=== PATIENT | female | born 1960 | race Caucasian/White ===

== ENCOUNTER → 2017-11-28 07:47 | Outpatient (CLI) | payer OTHER, SELFPAY ==
[2017-11-28 09:08] LABS: Add Manual Diff / Slide Review NO; Eosinophils Percent Auto 5.2 % (2-4); Hematocrit 41.8 % (36-46); Lymphocytes Percent Auto 26.8 % (25-40); Mean Corpuscular HGB Conc 33.4 % (30-36); Mean Corpuscular Hemoglobin 29.5 PG (26-34); Mean Corpuscular Volume 88.3 fL (80-100); Monocytes Percent Auto 8.4 % (3-14); Neutrophils Absolute Auto 3200 /uL (3000-5900); Neutrophils Percent Auto 57.6 % (50-75); Platelet Count 287 X10^3/uL (150-400); Red Blood Cell Count 4.74 X10^6/uL (4.0-5.2); White Blood Cell Count 5.5 X10^3/uL (4.5-11.0)
[2017-11-28 09:37] LABS: Alanine Aminotransferase 22 IU/L (9-52); Albumin 4.3 g/dL (3.5-5.0); Albumin Globulin Ratio 1.5 (1.0-2.8); Alkaline Phosphatase 48 U/L (38-126); Aspartate Aminotransferase 28 IU/L (14-36); BUN Creatinine Ratio 21.3 (6-22); Bilirubin Total 0.9 mg/dL (0.2-1.3); Blood Urea Nitrogen 17 mg/dL (7-17); Calcium 9.2 mg/dL (8.4-10.2); Carbon Dioxide 31 mmol/L (22-32); Chloride 101 mmol/L (98-107); Cholesterol 275 mg/dL (140-199); Estimated Glomerular Filt Rate > 60.0 mL/min (>60); Globulin 2.9 g/dL (1.7-4.1); Glucose 84 mg/dL (70-100); HDL Cholesterol 72 mg/dL (40-60); HEMOLYSIS < 15 (0-50); LDL Cholesterol Calculated 189 mg/dL (<100); Sodium 140 mmol/L (137-145); Total Protein 7.2 g/dL (6.3-8.2); Triglycerides 72 mg/dL (35-150)
== END ==
PROVIDERS: Family Provider Family Medicine; PCP Family Medicine; Visit Provider Family Medicine
DX: E78.5 Hyperlipidemia, unspecified (principal); Z00.00 Encounter for general adult medical examination without abnormal findings
CPT/HCPCS: 36415; 80053; 80061; 85025

== ENCOUNTER → 2017-12-26 13:48 | Outpatient (CLI) | payer OTHER, SELFPAY ==
--- NOTE | 2017-12-26 13:49 | DI.MG.S_ITS ---
BILATERAL DIGITAL SCREENING MAMMOGRAM 3D/2D WITH CAD: 12/26/2017 CLINICAL: Routine screening. Comparison is made to exams dated: 12/18/2015 mammogram, 06/22/2012 mammogram, and 10/24/2007 mammogram - [facility]. The tissue of both breasts is heterogeneously dense. This may lower the sensitivity of mammography. Current study was also evaluated with a Computer Aided Detection (CAD) system. No significant masses, calcifications, or other findings are seen in either breast. There has been no significant interval change. IMPRESSION: NEGATIVE There is no mammographic evidence of malignancy. A 1 year screening mammogram is recommended. This exam was interpreted at Station ID: [id number]. NOTE: For mammograms, a report in lay terms will be sent to the patient. Approximately 15% of breast malignancies will not be visualized mammographically. In the management of a palpable breast mass, a negative mammogram must not discourage biopsy of a clinically suspicious lesion. Electronically Signed By: Ray steward/estephanie:12/26/2017 15:11:35 letter sent: Normal Exam ACR BI-RADS Category 1: Negative 3341F
== END ==
PROVIDERS: Family Provider Family Medicine; PCP Family Medicine; Visit Provider Family Medicine
DX: Z12.31 Encounter for screening mammogram for malignant neoplasm of breast (principal)
CPT/HCPCS: 77063; 77067

== ENCOUNTER → 2018-02-03 09:44 | Outpatient (CLI) | payer OTHER, SELFPAY ==
--- NOTE | 2018-02-03 09:47 | DI.RAD.S_ITS ---
This blank DEXA report has been sent in error by the PACS system. The correct and complete report will be forthcoming in 1-2 days. Thank you for your patience and understanding. Dictated by: Saroj Kelly M.D. on 02/03/2018 at 11:03 Approved by: Saroj Kelly M.D. on 02/03/2018 at 11:10
== END ==
PROVIDERS: Family Provider Family Medicine; PCP Family Medicine; Visit Provider Family Medicine
DX: M81.0 Age-related osteoporosis without current pathological fracture (principal); Z78.0 Asymptomatic menopausal state; Z82.62 Family history of osteoporosis
CPT/HCPCS: 77080

== ENCOUNTER 2018-09-16 03:11 | Emergency (ER) | payer OTHER, SELFPAY ==
[2018-09-16 03:17] VITALS: BP 160/81; PULSE 91; RESP 18; TEMP 37; O2SAT 98; BMI 24.4
--- NOTE | 2018-09-16 03:31 | ED_ITS ---
HPI - Skin/Abscess/Foreign Bdy General Chief complaint: Skin/Abscess/Foreign Body Stated complaint: RASH ALL OVER BODY Time Seen by Provider: 09/16/18 03:30 Source: patient Mode of arrival: ambulatory Limitations: no limitations History of Present Illness HPI narrative: Patient is a 57-year-old female here for evaluation of a rash throughout her body. It has been there for at least the past 24 hours. No new exposures except that she did eat some oysters the other evening. She has had which is in the past and has never had an issue with them. She denies any shortness of breath. Has not taken anything for the symptoms prior to arrival. She states that last evening she went to take a bath and noticed that the rash was now on her lower extremities. It is not itching. She states she could not sleep so that is why she decided to come to the emergency department at this time a day. Related Data Previous Rx's Medication Instructions Recorded temazepam 15 mg capsule 15 mg PO HS PRN #30 tab 05/29/18 prednisone 40 mg PO DAILY 6 Days #12 tab 09/16/18 Allergies Allergy/AdvReac Type Severity Reaction Status Date / Time From VICODIN Allergy Mild ITCH Uncoded 08/10/17 11:52 From Percocet Allergy Unknown itching Uncoded 08/10/17 11:52 Penicillin Allergy Unknown Uncoded 08/10/17 11:52 Trazodone Allergy Unknown Uncoded 08/10/17 11:52 Review of Systems Constitutional Denies fever(s) and Denies headache(s) Eyes Denies itchy eyes ENT Ears, Nose, Mouth, and Throat: Denies headache(s) and Denies lip swelling Cardiovascular Denies chest pain and Denies dyspnea Respiratory Denies dyspnea Integumentary/Breasts Reports rash, Denies skin pain, Denies skin swelling and Denies skin ulcer Neurologic Denies headache(s) Hematologic/Lymphatic Denies easy bleeding and Denies easy bruising Allergic/Immunologic Denies urticaria, Denies itchy eyes and Denies lip swelling [facility] Medical History Dust allergy (Chronic) Osteoporosis (Chronic) Insomnia Hyperlipidemia (Chronic 08/22/12) Hyperlipidemia (Chronic) 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 Brother No problems noted. Father Small intestine cancer Grandfather Stroke Grandmother No problems noted. Grandmother Ovarian cancer Sister Brain tumor Social History Smoking Status: Never smoker Family History (Updated 01/04/18 @ 16:47 by Ludy Garcia) Mother Fibromyalgia Smoker PAD (peripheral artery disease) Stroke Parkinson's disease Brother No problems noted. Brother No problems noted. Father Small intestine cancer Grandfather Stroke Grandmother No problems noted. Grandmother Ovarian cancer Sister Brain tumor Social History Smoking Status: Never smoker Exam Initial Vital Signs Initial Vital Signs: Vital Signs Temperature 98.6 F 09/16/18 03:17 Pulse Rate 91 H 09/16/18 03:17 Respiratory Rate 18 09/16/18 03:17 Blood Pressure 160/81 H 09/16/18 03:17 Pulse Oximetry 98 09/16/18 03:17 Const General: cooperative, healthy appearing, comfortable, well developed, well groomed and No acute distress Orientation: alert and awake HENMT Throat: posterior oropharynx normal Resp Effort & Inspection: normal respiratory effort Auscultation: clear to auscultation bilaterally Skin Other: Patient with a systemic macular papular rash without vesicles. Neuro General: alert and awake Extrem General: normal to inspection Course Orders Ordered: Discontinued Medications Prednisone (Deltasone) 40 mg PO NOW ONE Stop: 09/16/18 03:32 Last Admin: 09/16/18 03:38 Dose: 40 mg Vital Signs - 8 hr 09/16/18 03:17 Temperature 98.6 F Pulse Rate 91 H Respiratory Rate 18 Blood Pressure 160/81 H Pulse Oximetry 98 MDM - Skin/Abscess/Foreign Bdy MDM Narrative Medical decision making narrative: Patient with no new exposures. Exam is not consistent with anaphylaxis. Not consistent with TEN or SJS or EM. Lungs are clear. Unknown exact etiology however will placed on steroids for the next couple days. Patient was given return precautions and follow-up instructions. She expressed understanding and agreement with plan. Discharge Plan Departure Patient Disposition: Home Clinical Impression: Rash Instructions: DI for Rash Activity Restrictions/Additional Instructions: Your 1st dose of steroids was given here in the emergency department. Urine next dose will be on Tuesday morning. On Tuesday contact your primary care doctor for a follow-up. Return to the emergency department for any new or worsening symptoms Prescriptions: New prednisone 20 mg tablet 40 mg PO DAILY 6 Days Qty: 12 RF: 0 No Action temazepam 15 mg capsule 15 mg PO HS PRN (Reason: insomnia) Qty: 30 RF: 0 Referrals: Jacqui Schmidt DO [Primary Care Provider] -
[2018-09-16] MEDS: predniSONE 20 MG TABLET 40 MG PO (03:38)
== END 2018-09-16 04:00 | disposition home or self-care (01) ==
PROVIDERS: Emergency Provider Emergency Medicine; PCP Family Medicine
DX: R21 Rash and other nonspecific skin eruption (principal)
CPT/HCPCS: 99282; 99283

== ENCOUNTER 2018-09-20 15:20 | Emergency (ER) | payer OTHER, SELFPAY ==
[2018-09-20 15:25] VITALS: BP 152/94; PULSE 104; RESP 15; TEMP 36.3; O2SAT 100; BMI 24.4
--- NOTE | 2018-09-20 15:57 | PC.NURSE ---
pt accidentally spilled boiling water on her left anterior thigh 1% first degree burn, occured 1420 denies other injuries.
[2018-09-20 16:02] VITALS: BP 158/86; PULSE 94; RESP 18; O2SAT 98
[2018-09-20] MEDS: KETOROLAC 60 MG/2 ML VIAL IM (16:05)
[2018-09-20] MEDS: BACITRACIN 28 GM OINT 1 APPLIC TOP (16:06)
[2018-09-20 16:30] VITALS: BP 142/78; PULSE 87; RESP 16; O2SAT 98
--- NOTE | 2018-09-20 16:40 | ED.SKABFB ---
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 She states she was boiling eggs. She accidentally poured boiling water on her Left thigh. She states her tetanus is current within the past 5 years. She is not cleansed her wound. She has not taken any ibuprofen or Tylenol. She states she was here recently for rash. she states she has spots on her stomach but they are not affiliated with this incident. Of note she was seen at this facility on the for a rash. She states she has not had any blistering on her burn Related Data Previous Rx's Medication Instructions Recorded temazepam 15 mg capsule 15 mg PO HS PRN #30 tab 09/18/18 Allergies Allergy/AdvReac Type Severity Reaction Status Date / Time Penicillins Allergy Verified 09/20/18 15:25 Review of Systems <LACIE Linares - Last Filed: 09/20/18 16:48> Review of Systems GENERAL: Denies chills, fatigue, malaise, fever, sweats. HEENT: Denies sinus pain, ear pain, sore throat, difficulty swallowing, dizziness. RESPIRATORY: Denies dyspnea, cough, wheezing, hemoptysis, sputum. CARDIOVASCULAR: Denies chest pain, palpitations, orthopnea, edema, GASTROINTESTINAL: Denies nausea, vomiting, abdominal pain, diarrhea, constipation, melena. : Denies dysuria, frequency, incontinence, hematuria, urinary retention. MUSCULOSKELETAL: denies weakness, joint pain, or bony pain SKIN: See HPI NEUROLOGIC: Denies weakness, headache, numbness, change in speech, confusion, seizures, incoordination. PSYCHIATRIC: No concerning psychosocial issues. 12 point review of systems is negative except for those stated above PFSH <LACIE Linares - Last Filed: 09/20/18 16:48> Medical History Dust allergy (Chronic) Osteoporosis (Chronic) Insomnia Hyperlipidemia (Chronic 08/22/12) Hyperlipidemia (Chronic) Insomnia secondary to anxiety (Chronic) Ovarian cyst (Chronic) Normal Papanicolaou smear (Resolved) Surgical History Anesthesia (Resolved) Status post delivery (Resolved 03/21/76) Status post tubal ligation (Resolved 04/1986) Family History (Updated 01/04/18 @ 16:47 by Ludy Garcia) Mother Fibromyalgia Smoker PAD (peripheral artery disease) Stroke Parkinson's disease Brother No problems noted. Brother No problems noted. Father Small intestine cancer Grandfather Stroke Grandmother No problems noted. Grandmother Ovarian cancer Sister Brain tumor Social History Smoking Status: Never smoker Family History Mother Fibromyalgia Smoker PAD (peripheral artery disease) Stroke Parkinson's disease Brother No problems noted. Brother No problems noted. Father Small intestine cancer Grandfather Stroke Grandmother No problems noted. Grandmother Ovarian cancer Sister Brain tumor Social History Smoking Status: Never smoker Exam <LACIE Linares - Last Filed: 09/20/18 16:48> Narrative Exam Narrative: GENERAL: This is a well-nourished, well-developed patient, appears anxious HEAD: Atraumatic. Normocephalic. No temporal or scalp tenderness. EYES: Pupils equal round and reactive. Extraocular motions intact. No scleral icterus. No injection or drainage. ENT: Nose without bleeding, purulent drainage or septal hematoma. Throat without erythema, tonsillar hypertrophy or exudate. Uvula midline. Airway patent. NECK: Trachea midline. No JVD or lymphadenopathy. Supple, nontender, no meningeal signs. CARDIOVASCULAR: Regular rate and rhythm RESPIRATORY: No cough. No increased respiratory effort. No accessory muscle use. EXTREMITIES: Superficial burn as noted in skin exam BACK: Nontender without deformity or crepitance. No flank tenderness. NEURO: AOx3. SKIN: Left thigh has approx 10 in by 4 in area of blanchable erythema Initial Vital Signs Initial Vital Signs: Vital Signs Temperature 97.3 F L 09/20/18 15:25 Pulse Rate 104 H 09/20/18 15:25 Respiratory Rate 15 09/20/18 15:25 Blood Pressure 152/94 H 09/20/18 15:25 Pulse Oximetry 100 09/20/18 15:25 <Nadya Conway DO - Last Filed: 09/22/18 07:28> Initial Vital Signs Initial Vital Signs: Vital Signs Temperature 97.3 F L 09/20/18 15:25 Pulse Rate 104 H 09/20/18 15:25 Respiratory Rate 15 09/20/18 15:25 Blood Pressure 152/94 H 09/20/18 15:25 Pulse Oximetry 100 09/20/18 15:25 Course <SARAH LinaresBC - Last Filed: 09/20/18 16:48> Orders Ordered: Discontinued Medications Bacitracin (Bacitracin) 1 applic TOP NOW ONE Stop: 09/20/18 15:50 Last Admin: 09/20/18 16:06 Dose: 1 applic Ketorolac Tromethamine (Toradol) 60 mg IM NOW ONE Stop: 09/20/18 15:50 Last Admin: 09/20/18 16:05 Dose: 60 mg Vital Signs - 8 hr 09/20/18 15:25 09/20/18 16:02 09/20/18 16:30 Temperature 97.3 F L Pulse Rate 104 H 94 H 87 Respiratory Rate 15 18 16 Blood Pressure 152/94 H Blood Pressure [Left Arm] 158/86 H 142/78 H Pulse Oximetry 100 98 98 <Nadya Conway DO - Last Filed: 09/22/18 07:28> Orders Ordered: Discontinued Medications Bacitracin (Bacitracin) 1 applic TOP NOW ONE Stop: 09/20/18 15:50 Last Admin: 09/20/18 16:06 Dose: 1 applic Ketorolac Tromethamine (Toradol) 60 mg IM NOW ONE Stop: 09/20/18 15:50 Last Admin: 09/20/18 16:05 Dose: 60 mg Vital Signs - 8 hr 09/20/18 15:25 09/20/18 16:02 09/20/18 16:30 Temperature 97.3 F L Pulse Rate 104 H 94 H 87 Respiratory Rate 15 18 16 Blood Pressure 152/94 H Blood Pressure [Left Arm] 158/86 H 142/78 H Pulse Oximetry 100 98 98 MDM - Skin/Abscess/Foreign Bdy <Nadya KjNYDIA foster-BC - Last Filed: 09/20/18 16:48> MDM Narrative Medical decision making narrative: The patient presents with a superficial burn. Does cleansed by myself with water and Hibiclens. The patient states her tetanus is up-to-date. Bacitracin was applied. Discussed at length monitoring for signs and symptoms of infection. Discussed keeping burn clean using bacitracin. Discussed using ibuprofen for pain. Patient was given Toradol in the emergency department. Encouraged patient to follow up with primary care provider. Discussed return precautions to the emergency department of chest pain shortness of breath or any acute concerns. No questions or concerns upon discharge. Discharge Plan Departure Patient Disposition: Home Clinical Impression: Burn Discharge Date/Time: 09/20/18 17:34 Interventions: ED Discharge Assessment Last Done: 09/20/18 17:20 Instructions: DI for [place] Activity Restrictions/Additional Instructions: Please keep your burn clean. Wash it with soap and water twice a day. Please apply bacitracin twice a day. Continue to use ibuprofen or anti-inflammatories. Please wait to take anti-inflammatories for 8 hours after that injection in the emergency department Please follow up with primary care provider. Please come back to the emergency department for any acute concerns such as chest pain or shortness of breath. Prescriptions: No Action temazepam 15 mg capsule 15 mg PO HS PRN (Reason: insomnia) Qty: 30 RF: 0 Referrals: Jacqui Schmidt DO [Primary Care Provider] - <Nadya Conway DO - Last Filed: 09/22/18 07:28> Cosign ED Attending Cosignature Attestation: I was immediately available in the department for consultation. This documentation has been reviewed and I agree with assessment and plan. Supervised by Nadya Conway DO
== END 2018-09-20 17:34 | disposition home or self-care (01) ==
PROVIDERS: Emergency Provider Nurse Practitioner Family; PCP Family Medicine
DX: T24.012A Burn of unspecified degree of left thigh, initial encounter (principal); X12.XXXA Contact with other hot fluids, initial encounter
CPT/HCPCS: 96372; 99282; 99283; J1885

== ENCOUNTER → 2019-02-09 08:07 | Outpatient (CLI) | payer OTHER, SELFPAY ==
[2019-02-09 09:26] LABS: Alanine Aminotransferase 23 IU/L (9-52); Albumin 4.2 g/dL (3.5-5.0); Albumin Globulin Ratio 1.6 (1.0-2.8); Alkaline Phosphatase 45 U/L (38-126); Aspartate Aminotransferase 32 IU/L (14-36); Bilirubin Total 0.9 mg/dL (0.2-1.3); Blood Urea Nitrogen 18 mg/dL (7-17); Calcium 9.3 mg/dL (8.4-10.2); Carbon Dioxide 29 mmol/L (22-32); Chloride 103 mmol/L (98-107); Cholesterol 245 mg/dL (140-199); Estimated Glomerular Filt Rate > 60.0 mL/min (>60); Globulin 2.7 g/dL (1.7-4.1); Glucose 70 mg/dL (80-110); HDL Cholesterol 73 mg/dL (40-60); HEMOLYSIS < 15 (0-50); LDL Cholesterol Calculated 153 mg/dL (<100); Potassium 4.3 mmol/L (3.4-5.1); Sodium 140 mmol/L (137-145); Total Protein 6.9 g/dL (6.3-8.2); Triglycerides 93 mg/dL (35-150)
[2019-02-09 10:42] LABS: Vitamin D 25 Hydroxy (D3) 19.4 ng/mL (30.0-100.0)
== END ==
PROVIDERS: PCP Family Medicine; Visit Provider Family Medicine
DX: E78.5 Hyperlipidemia, unspecified (principal); M81.0 Age-related osteoporosis without current pathological fracture
CPT/HCPCS: 36415; 80053; 80061; 82306

== ENCOUNTER → 2020-06-27 11:17 | Outpatient (CLI) | payer OTHER, SELFPAY ==
--- NOTE | 2020-06-27 | DI.MG.S_ITS ---
BILATERAL DIGITAL SCREENING MAMMOGRAM 3D/2D WITH CAD: 06/27/2020 CLINICAL: Routine screening. Comparison is made to exams dated: 12/26/2017 mammogram, 12/18/2015 mammogram, 06/22/2012 mammogram, and 08/04/2006 mammogram - [facility]. The tissue of both breasts is heterogeneously dense. This may lower the sensitivity of mammography. Current study was also evaluated with a Computer Aided Detection (CAD) system. No significant masses, calcifications, or other findings are seen in either breast. There has been no significant interval change. IMPRESSION: NEGATIVE There is no mammographic evidence of malignancy. A 1 year screening mammogram is recommended. This exam was interpreted at Station ID: [id number]. NOTE: For mammograms, a report in lay terms will be sent to the patient. Approximately 15% of breast malignancies will not be visualized mammographically. In the management of a palpable breast mass, a negative mammogram must not discourage biopsy of a clinically suspicious lesion. Electronically Signed By: Power bryan/estephanie:06/27/2020 12:42:34 letter sent: Normal Exam ACR BI-RADS Category 1: Negative 3341F
== END ==
PROVIDERS: PCP Family Medicine; Referring Provider Family Medicine; Visit Provider Family Medicine
DX: Z12.31 Encounter for screening mammogram for malignant neoplasm of breast (principal)
CPT/HCPCS: 77063; 77067

== ENCOUNTER → 2020-06-30 07:07 | Outpatient (CLI) | payer OTHER, SELFPAY ==
[2020-06-30 08:50] LABS: Alanine Aminotransferase 17 IU/L (<35); Albumin 4.1 g/dL (3.5-5.0); Albumin Globulin Ratio 1.4 (1.0-2.8); Alkaline Phosphatase 52 U/L (38-126); Aspartate Aminotransferase 29 IU/L (14-36); BUN Creatinine Ratio 22.1 (6-22); Bilirubin Total 0.7 mg/dL (0.2-1.3); Blood Urea Nitrogen 17 mg/dL (7-17); Calcium 9.1 mg/dL (8.4-10.2); Carbon Dioxide 30 mmol/L (22-32); Chloride 104 mmol/L (98-107); Cholesterol 285 mg/dL (140-199); Estimated Glomerular Filt Rate > 60.0 mL/min (>60); Globulin 2.9 g/dL (1.7-4.1); Glucose 87 mg/dL (80-110); HDL Cholesterol 71 mg/dL (40-60); HEMOLYSIS < 15 (0-50); LDL Cholesterol Calculated 198 mg/dL (<100); Potassium 3.9 mmol/L (3.4-5.1); Sodium 136 mmol/L (137-145); Triglycerides 78 mg/dL (35-150)
[2020-06-30 09:16] LABS: Vitamin D 25 Hydroxy (D3) 22.8 ng/mL (30.0-100.0)
== END ==
PROVIDERS: PCP Family Medicine; Referring Provider Family Medicine; Visit Provider Family Medicine
DX: E78.5 Hyperlipidemia, unspecified (principal); M81.0 Age-related osteoporosis without current pathological fracture
CPT/HCPCS: 36415; 80053; 80061; 82306

== ENCOUNTER → 2020-07-01 17:38 | Outpatient (CLI) | payer OTHER, SELFPAY | PROVIDERS: PCP Family Medicine; Visit Provider Registered Nurse Diabetes Educator | DX: A60.9 Anogenital herpesviral infection, unspecified (principal) | CPT/HCPCS: 87255 ==

== ENCOUNTER → 2020-07-07 07:03 | Outpatient (CLI) | payer OTHER, SELFPAY | PROVIDERS: PCP Family Medicine; Referring Provider Registered Nurse Diabetes Educator; Visit Provider Registered Nurse Diabetes Educator | DX: A60.9 Anogenital herpesviral infection, unspecified (principal) | CPT/HCPCS: 36415; 86695; 86696 ==

== ENCOUNTER → 2020-07-30 14:19 | Outpatient (CLI) | payer OTHER, SELFPAY ==
[2020-07-30] MEDS: COVID-19 VACC #1, MRNA(MOD) 100 MCG/0.5 ML VIAL IM (14:29)
== END ==
PROVIDERS: PCP Family Medicine; Visit Provider Internal Medicine
DX: Z23 Encounter for immunization (principal)
CPT/HCPCS: 0011A; 91301

== ENCOUNTER → 2020-08-27 15:45 | Outpatient (CLI) | payer OTHER, SELFPAY ==
[2020-08-27] MEDS: COVID-19 VACC #2, MRNA(MOD) 100 MCG/0.5 ML VIAL IM (15:59)
== END ==
PROVIDERS: PCP Family Medicine; Visit Provider Internal Medicine
DX: Z23 Encounter for immunization (principal)
CPT/HCPCS: 0012A; 91301

== ENCOUNTER 2020-09-26 11:19 | Emergency (ER) | payer OTHER, SELFPAY ==
[2020-09-26 11:20] VITALS: BP 191/82; PULSE 103; RESP 20; TEMP 36.7; O2SAT 14
--- NOTE | 2020-09-26 11:28 | ED.ALLEREA ---
HPI - Allergic Reaction General Chief complaint: Allergic Reaction Stated complaint: allegic reactiont to tetanus shot Time Seen by Provider: 09/26/20 11:27 Source: patient Mode of arrival: Ambulatory Limitations: no limitations History of Present Illness HPI narrative: This is a pleasant 60-year-old female comes with concern for allergic reaction to tetanus immunization. Patient had her tetanus updated about 10:00 a.m. today. She noticed some irritation to her eyes immediately afterwards, return home and then noted that she developed a rash with hives and itching on her extremities and torso. Patient denies any swelling of the lips, mouth, tongue her airway. She denies any sensation of closing of her throat. She denies any chest pain or wheezing. She denies any nausea or vomiting. She denies any diarrhea. She states that she has allergy to penicillin she has had 1 prior allergic reaction which she does not recall the medication. She does have some known environmental allergies. She has not any prior immunization reactions. Patient denies any daily chronic medications. Related Data Previous Rx's Medication Instructions Recorded cholecalciferol (vitamin D3) 1,250 50,000 unit PO QWEEK #8 cap 02/11/19 mcg (50,000 unit) capsule temazepam 15 mg capsule 15 mg PO HS PRN #30 tab 06/07/20 valacyclovir 1 gram tablet 1,000 mg PO BID #20 tab 07/01/20 desonide 0.05 % topical ointment 1 applic TOPICAL BID #15 g 07/18/20 epinephrine [EpiPen 2-Stevan] 0.3 mg IM Q5-15M PRN #2 ea 09/26/20 prednisone 50 mg PO DAILY #4 tab 09/26/20 Allergies Allergy/AdvReac Type Severity Reaction Status Date / Time Tetanus Vaccines and Toxoid Allergy Intermediate Hives Verified 09/26/20 13:02 Penicillins Allergy Verified 09/26/20 11:31 Review of Systems Review of Systems ROS Unobtainable: All systems reviewed & are unremarkable except as noted in HPI and below Patient History Medical History (Updated 09/26/20 @ 11:36 by Nadya Conway DO) Dust allergy Hyperlipidemia (08/22/12) Hyperlipidemia Insomnia Insomnia secondary to anxiety Normal Papanicolaou smear Osteoporosis Ovarian cyst Surgical History Anesthesia Status post delivery (03/21/76) Status post tubal ligation (04/1986) Family History Mother Fibromyalgia Smoker PAD (peripheral artery disease) Stroke Parkinson's disease Brother Age: 57 Alcoholism Brother Age: 60 Hyperlipidemia Hypertension Smoker CAD (coronary artery disease) Father Small intestine cancer Grandfather Stroke Grandmother No problems noted. Grandmother Ovarian cancer Sister Brain tumor Social History Smoking Status: Never smoker Smoking Status: Never smoker alcohol intake frequency: holidays/special occasions only Substance Use Type: does not use Exam Narrative Exam Narrative: GEN: well nourished, well appearing female, alert and oriented x 3, patient appears to be in mild distress. Patient is sitting on edge of bed appears comfortable. HEENT: Atraumatic, pupils are equal round reactive to light, extraocular movements are intact, nares are clear, TMs are clear with no fluid, there is no conjunctival pallor. Throat is clear without any exudates, erythema, tonsillar enlargement or uvular deviation, no swelling of lips, tongue or oropharynx. No stridor. HEART: Regular rate and rhythm without murmur, clicks, rubs. LUNGS:Lungs clear to auscultation, no wheezes, rales, crackles, chest moves symmetrically ABD:bowel sounds normal, soft, non-tender, no guarding, rebound, rigidity, no masses noted, no hepatosplenomegaly MSCL: full range of motion, normal gait NEURO:CN 2-12 intact, sensation normal SKIN: Patient has erythematous slightly raised rash on her extremities and torso that appears consistent with hives. Patient has some pruritus and scratching at the areas. There is no blistering. There is no rash or skin changes noted to the face or mucous membranes. Initial Vital Signs Initial Vital Signs: Vital Signs Temperature 98.1 F 09/26/20 11:20 Pulse Rate 103 H 09/26/20 11:20 Respiratory Rate 20 09/26/20 11:20 Blood Pressure 191/82 H 09/26/20 11:20 Pulse Oximetry 14 L 09/26/20 11:20 Course Orders Ordered: Discontinued Medications Diphenhydramine HCl (Diphenhydramine 12.5 Mg/5 Ml Udc) 50 mg PO NOW ONE Stop: 09/26/20 11:32 Last Admin: 09/26/20 11:48 Dose: 50 mg Documented by: JESSICA Prednisone (Prednisone 20 Mg Tablet) 60 mg PO NOW ONE Stop: 09/26/20 11:32 Last Admin: 09/26/20 11:48 Dose: 60 mg Documented by: JESSICA Reevaluation(s) Reevaluation #1: No worsening, patient states mild improvement. Return precautions discussed. Time: 13:02 Vital Signs Vital signs: Vital Signs - 8 hr 09/26/20 11:20 09/26/20 13:00 Temperature 98.1 F Pulse Rate 103 H 72 Respiratory Rate 20 16 Blood Pressure 191/82 H 159/71 H Pulse Oximetry 14 L 99 Discharge Plan Departure Patient Disposition: Home Clinical Impression: Allergic reaction Instructions: DI for Adverse Drug Reaction -- Allergic Activity Restrictions/Additional Instructions: It appears today had allergic reaction to your tetanus immunization. Please update your physician that you had a reaction to your immunization. Take steroids once daily until gone. Take Benadryl 1-2 tablets every 6 hours as needed for symptoms. EpiPen was prescribed if you have any symptoms such as swelling of your throat or airway recommend using this in the future. Prescription was sent to [facility] in [place] Please return for new or worsening swelling of your lips, mouth, airway, throat, wheezing or shortness of breath, chest pain, lightheadedness or passing out, persistent vomiting, rapidly worsening rash or new blistering rash other new or concerning symptoms. Prescriptions: New epinephrine [EpiPen 2-Stevan] 0.3 mg/0.3 mL auto-injector 0.3 mg IM Q5-15M PRN (Reason: anaphylaxis) Qty: 2 RF: 0 prednisone 50 mg tablet 50 mg PO DAILY Qty: 4 RF: 0 No Action cholecalciferol (vitamin D3) 50,000 unit capsule 50,000 unit PO QWEEK Qty: 8 RF: 0 temazepam 15 mg capsule 15 mg PO HS PRN (Reason: insomnia) Qty: 30 RF: 1 desonide 0.05 % ointment 1 applic topical BID Qty: 15 RF: 0 valacyclovir [Valtrex] 1 gram tablet 1,000 mg PO BID Qty: 20 RF: 0 Referrals: Jacqui Schmidt DO [Primary Care Provider] -
[2020-09-26] MEDS: diphenhydrAMINE 12.5 MG/5 ML UDC 50 MG PO (11:48)
[2020-09-26] MEDS: predniSONE 20 MG TABLET 60 MG PO (11:48)
[2020-09-26 13:00] VITALS: BP 159/71; PULSE 72; RESP 16; O2SAT 99
== END 2020-09-26 13:18 | disposition home or self-care (01) ==
PROVIDERS: Emergency Provider Emergency Medicine; PCP Family Medicine
DX: L50.9 Urticaria, unspecified (principal); T50.A95A Adverse effect of other bacterial vaccines, initial encounter
CPT/HCPCS: 99283

== ENCOUNTER → 2020-12-01 11:11 | Outpatient (CLI) | payer OTHER, SELFPAY | PROVIDERS: PCP Family Medicine; Referring Provider Family Medicine; Visit Provider Family Medicine | DX: M81.0 Age-related osteoporosis without current pathological fracture (principal); Z78.0 Asymptomatic menopausal state; Z82.62 Family history of osteoporosis | CPT/HCPCS: 77080 ==

== ENCOUNTER → 2021-01-13 06:45 | Outpatient (CLI) | payer OTHER, SELFPAY ==
[2021-01-13 09:19] LABS: Alanine Aminotransferase 16 IU/L (<35); Albumin 4.2 g/dL (3.5-5.0); Albumin Globulin Ratio 1.5 (1.0-2.8); Alkaline Phosphatase 51 U/L (38-126); Aspartate Aminotransferase 26 IU/L (14-36); BUN Creatinine Ratio 27.7 (6-22); Bilirubin Total 0.7 mg/dL (0.2-1.3); Blood Urea Nitrogen 18 mg/dL (7-17); Calcium 9.2 mg/dL (8.4-10.2); Carbon Dioxide 28 mmol/L (22-32); Chloride 105 mmol/L (98-107); Cholesterol 255 mg/dL (140-199); Estimated Glomerular Filt Rate > 60.0 mL/min (>60); Globulin 2.8 g/dL (1.7-4.1); Glucose 109 mg/dL (80-110); HDL Cholesterol 78 mg/dL (40-60); HEMOLYSIS < 15 (0-50); LDL Cholesterol Calculated 164 mg/dL (<100); Sodium 137 mmol/L (137-145); Triglycerides 64 mg/dL (35-150)
[2021-01-13 09:27] LABS: Vitamin D 25 Hydroxy (D3) 24.2 ng/mL (30.0-100.0)
== END ==
PROVIDERS: PCP Family Medicine; Referring Provider Family Medicine; Visit Provider Family Medicine
DX: E78.5 Hyperlipidemia, unspecified (principal); M81.0 Age-related osteoporosis without current pathological fracture
CPT/HCPCS: 36415; 80053; 80061; 82306

== ENCOUNTER → 2021-07-01 14:16 | Outpatient (CLI) | payer OTHER, SELFPAY ==
[2021-07-01 17:09] LABS: COVID19 -Nasal RAPID Negative (Negative)
== END ==
PROVIDERS: Surgery; PCP Family Medicine; Visit Provider Registered Nurse Diabetes Educator
DX: N73.9 Female pelvic inflammatory disease, unspecified (principal); Z01.812 Encounter for preprocedural laboratory examination; Z20.822 Contact with and (suspected) exposure to COVID-19
CPT/HCPCS: 87070; 87075; 87077; 87147; 87186; 87205; 87635

== ENCOUNTER 2021-07-03 08:56 | Day surgery (SDC) | payer OTHER, SELFPAY ==
[2021-07-02 07:46] VITALS: BMI 25.4
[2021-07-03 09:29] VITALS: BP 170/84; PULSE 88; RESP 16; TEMP 37.1; O2SAT 98; BMI 25.4
--- NOTE | 2021-07-03 11:06 | PM.PREOP ---
Pre-operative Note COVID-19 COVID-19 status: Negative Result date/Date tested (Pos, Neg/Pending): 07/02/21 Criteria for continued procedure: Possibility delay results in more complex future surgery or treatment Interval Note History & Physical reviewed/Exam performed by Physician: Yes Changes to H&P: No ASA Class (for procedural sedation): II
--- NOTE | 2021-07-03 11:27 | SUR.OPER ---
Lithotomy on padded OR bed, head on pillow, arms secured on padded arm boards at <90 degrees abduction. Legs secured in padded yellow fins stirrups.
[2021-07-03] MEDS: BUPIVACAINE LIPOSOME 266 MG/20 ML VIAL INJ (11:35)
--- NOTE | 2021-07-03 11:47 | PM.OP.1 ---
Operative Date/Time/Diagnoses Date of procedure: 07/03/21 Time of procedure: 11:47 Pre-op diagnosis: Darleen rectal abscess Post-op diagnosis: same Procedure & Clinicians Procedure: Examination under anesthesia and incision and drainage of darleen rectal abscess Same procedure as scheduled: Yes Surgeon: Bob Robison Click Yes if Unassisted: Yes Anesthesia Type: General Operative Notes Procedure in detail: The patient was brought to the operating room and general anesthesia was induced via LMA. Patient was positioned in high lithotomy position. The perineum was prepped and draped in the usual fashion. A time-out was performed. There were 2 lesions in the right anterior peroneal region at roughly 10 o'clock when viewing the anus in the high lithotomy position both of these skin lesions were about cm in diameter and showed evidence of prior drainage of purulent material. One of these lesions was about cm from the anus and another was about 3 cm from the anus. First, the distal rectum was examined with a Hill-Moreno retractor and no obvious abnormalities were noted. Next, Exparel was injected into the skin and subcutaneous tissue around both lesions and both lesions were incised with a 15 blade scalpel in a cruciate manner with a 1 cm x 1 cm incision. There is minimal drainage of purulent fluid. Finger was inserted into the abscess cavity through both skin incisions to break up any loculations. The abscess cavity did not appear to track significantly in any direction. Finally, additional Exparel was injected into the remainder of the soft tissue around both incisions and the cavities were packed with Kerlix. 4x4s were applied and the patient was awakened and brought to recovery room. EBL: 15 mL Post-operative Condition: stable Disposition: PACU
[2021-07-03 11:52] VITALS: BP 153/76; PULSE 74; RESP 17; TEMP 37.1; O2SAT 97
[2021-07-03 11:56] VITALS: BP 139/66; PULSE 74; RESP 14; O2SAT 98
[2021-07-03 12:01] VITALS: BP 152/68; PULSE 73; RESP 12; TEMP 36.6; O2SAT 97
[2021-07-03 12:08] VITALS: BP 157/71; PULSE 73; RESP 11; TEMP 36.4; O2SAT 96
[2021-07-03 12:15] VITALS: BP 152/70; PULSE 66; RESP 14; TEMP 36.2; O2SAT 97
== END 2021-07-03 12:26 | disposition home or self-care (01) ==
PROVIDERS: PCP Family Medicine; Referring Provider Surgery; Visit Provider Surgery
PROC: (CPT 46040; principal; 2021-07-03 10:45)
DX: K61.1 Rectal abscess (principal)
CPT/HCPCS: 46040; C9290; J1100; J2250; J2405; J2704; J3010

== ENCOUNTER → 2021-07-14 14:41 | Outpatient (CLI) | payer OTHER, SELFPAY | PROVIDERS: PCP Family Medicine; Visit Provider Surgery | DX: K61.1 Rectal abscess (principal) | CPT/HCPCS: 10061; 87070; 87075; 87077; 87147; 87186; 87205 ==

== ENCOUNTER 2021-08-06 09:36 | Emergency (ER) | payer OTHER, SELFPAY ==
[2021-08-06 09:52] VITALS: BP 179/84; PULSE 98; RESP 18; TEMP 37; O2SAT 100; BMI 53.4
--- NOTE | 2021-08-06 10:04 | ED.SKABFB ---
HPI - Skin/Abscess/Foreign Bdy General Chief complaint: Skin/Abscess/Foreign Body Stated complaint: MRSA, Bumps appearing, needs lanced Time Seen by Provider: 08/06/21 09:45 Source: patient Mode of arrival: Ambulatory Limitations: no limitations History of Present Illness HPI narrative: Patient is a 60-year-old female who presents with ongoing abscesses in her left buttock. She has been seen and evaluated by surgery. She was recently started on a higher dose of Bactrim 2 days ago. She says it has gotten bigger and probably needs to be drained again. She denies any fever or chills. She does feel little nauseous of this is been ongoing she thinks might be due to the antibiotic she has not been vomiting. She feels weak but it generally gets better throughout the day. She has nausea medication at home Related Data Previous Rx's Medication Instructions Recorded cholecalciferol (vitamin D3) 1,250 50,000 unit PO QWEEK #8 cap 02/11/19 mcg (50,000 unit) capsule desonide 0.05 % topical ointment 1 applic TOPICAL BID #15 g 07/18/20 epinephrine 0.3 mg/0.3 mL 0.3 mg (0.3 mL) IM Q5-15M PRN #2 ea 09/26/20 injection, auto-injector (EpiPen 2-Stevan) hydrocortisone acetate 30 mg 30 mg IN BEDTIME #12 ea 01/23/21 rectal suppository temazepam 15 mg capsule 15 mg PO HS PRN #30 tab 01/23/21 sulfamethoxazole 400 1 tab PO DAILY #14 tab 07/15/21 mg-trimethoprim 80 mg tablet (Bactrim) hydrocodone 5 mg-acetaminophen 325 1 tab PO Q4-6H PRN #14 tab 07/22/21 mg tablet sulfamethoxazole 800 1 tab PO BID #14 tab 08/03/21 mg-trimethoprim 160 mg tablet (Bactrim DS) metoclopramide HCl 10 mg tablet 10 mg PO Q6H PRN #10 tab 08/05/21 (Reglan) mupirocin 2 % topical ointment 1 applictn TOP BID #15 gram 08/06/21 Allergies Allergy/AdvReac Type Severity Reaction Status Date / Time Tetanus Vaccines and Toxoid Allergy Intermediate Hives Verified 08/03/21 16:09 Penicillins Allergy Verified 08/03/21 16:09 Review of Systems Review of Systems Narrative: GENERAL: Denies chills,fever HEENT: Denies throat pain RESPIRATORY: Denies dyspnea, cough, wheezing CARDIOVASCULAR: Denies chest pain, palpitations GASTROINTESTINAL: Denies nausea, vomiting MUSCULOSKELETAL: Denies extremity pain, injury SKIN: See HPI NEUROLOGIC: Denies weakness, dizziness, headache, numbness 8 point review of systems is negative except for those stated above and HPI Patient History Medical History (Updated 08/06/21 @ 10:44 by Francia Gonzales DO) Dust allergy Hyperlipidemia (08/22/12) Hyperlipidemia Insomnia Insomnia secondary to anxiety Normal Papanicolaou smear Osteoporosis Ovarian cyst Surgical History Anesthesia Status post delivery (03/21/76) Status post tubal ligation (04/1986) Family History Mother Fibromyalgia Smoker PAD (peripheral artery disease) Stroke Parkinson's disease Brother Age: 58 Alcoholism Brother Age: 61 Hyperlipidemia Hypertension Smoker CAD (coronary artery disease) Father Small intestine cancer Grandfather Stroke Grandmother No problems noted. Grandmother Ovarian cancer Sister Brain tumor Social History Smoking Status: Never smoker alcohol intake: current Smoking Status: Never smoker alcohol intake frequency: holidays/special occasions only Substance Use Type: does not use Exam Initial Vital Signs Initial Vital Signs: Vital Signs Temperature 98.6 F 08/06/21 09:52 Pulse Rate 98 H 08/06/21 09:52 Respiratory Rate 18 08/06/21 09:52 Blood Pressure 179/84 H 08/06/21 09:52 Pulse Oximetry 100 08/06/21 09:52 GENERAL: Alert well-appearing 60-year-old female CARDIOVASCULAR: peripheral pulses in tact, cap refill <2 sec RESPIRATORY: No respiratory distress, speaks in full sentences without difficulty EXTREMITIES: Normal range of motion, no clubbing or edema. Neurovascularly intact NEUROLOGICAL: Cranial nerves II through XII grossly intact. Normal gait and speech. SKIN: Left buttock abscess with mild fluctuation 2 cm x 2 cm minimal induration Procedures Abscess I/D I&D #1: Site: darleen-rectal (left buttock) Side (if applicable): left Local Anesthetic: lidocaine 1% Amount of anesthesia used (mL): 4 Technique: incised with #11 blade Amount of fluid expressed (mL): 2 Irrigation: No Packing used?: none Course Orders Ordered: ED Orders 08/06/21 11:49 Wound Culture and Gram Stain Stat Discontinued Medications Lidocaine HCl (Lidocaine 1% (Pf)) 4 ml SUBCUT NOW ONE Stop: 08/06/21 10:09 Last Admin: 08/06/21 10:36 Dose: 4 ml Documented by: JHONY Vital Signs Vital signs: Vital Signs - 8 hr 08/06/21 09:52 08/06/21 11:55 Temperature 98.6 F 98 F Pulse Rate 98 H 85 Respiratory Rate 18 18 Blood Pressure 179/84 H 170/80 H Pulse Oximetry 100 98 MDM - Skin/Abscess/Foreign Bdy MDM Narrative Medical decision making narrative: Patient has recurrent MRSA infections. She is currently on double-strength dose of Bactrim that has only taken 1 or 2 days of it. She has a small drainable abscess. Wound culture is pending. At this time she is afebrile certainly not septic at this time. I see no need for any further workup recommend outpatient Discharge Plan Departure Patient Disposition: Home Clinical Impression: Abscess of skin or subcutaneous tissue Instructions: DI for Skin Abscess Activity Restrictions/Additional Instructions: *You have been diagnosed with skin abscess *What to do: Sorry this keeps happening to you. Keep area clean and dry as best you can. Try heating pad as needed this may help bring more infection to the surface as well. Warm baths may also help. *Continue to take medications as directed Continue and finish antibiotics as previously prescribed Mupirocin ointment twice a day for 1 week--> [facility] *Follow up with your primary care provider in 2-3 days or call [phone] Robison to schedule follow-up appointment *Return to ER if you should have increasing redness, fever, increasing pain or any new, worsening or concerning symptoms Prescriptions: New mupirocin 2 % ointment 1 applictn TOP BID Qty: 15 0RF No Action cholecalciferol (vitamin D3) 50,000 unit capsule 50,000 unit PO QWEEK Qty: 8 0RF metoclopramide HCl [Reglan] 10 mg tablet 10 mg PO Q6H PRN (Reason: nausea and vomiting) Qty: 10 0RF desonide 0.05 % ointment 1 applic topical BID Qty: 15 0RF temazepam 15 mg capsule 15 mg PO HS PRN (Reason: insomnia) Qty: 30 1RF Rx Instructions: Take 1 tablet by mouth at bedtime as needed for insomnia. hydrocortisone acetate 30 mg suppository 30 mg IN BEDTIME Qty: 12 0RF sulfamethoxazole-trimethoprim [Bactrim] 400-80 mg tablet 1 tab PO DAILY Qty: 14 0RF sulfamethoxazole-trimethoprim [Bactrim DS] 800-160 mg tablet 1 tab PO BID Qty: 14 0RF hydrocodone-acetaminophen 5-325 mg tablet 1 tab PO Q4-6H PRN (Reason: pain) Qty: 14 0RF epinephrine [EpiPen 2-Stevan] 0.3 mg/0.3 mL auto-injector 0.3 mg IM Q5-15M PRN (Reason: anaphylaxis) Qty: 2 0RF Rx Instructions: do not exceed 3 doses per episode Referrals: [facility] [Provider Group] Sarah Allison MD [Primary Care Provider] - Bob Robison MD [Physician] -
[2021-08-06] MEDS: LIDOCAINE 1% (PF) 4 ML SUBCUT (10:36)
[2021-08-06 11:55] VITALS: BP 170/80; PULSE 85; RESP 18; TEMP 36.6; O2SAT 98
== END 2021-08-06 11:55 | disposition home or self-care (01) ==
PROVIDERS: Emergency Provider Emergency Medicine; PCP Family Medicine
DX: L02.31 Cutaneous abscess of buttock (principal); Z86.14 Personal history of Methicillin resistant Staphylococcus aureus infection
CPT/HCPCS: 10060; 87070; 87075; 87077; 87147; 87185; 87186; 87205; 99281; 99283

== ENCOUNTER 2022-05-01 08:37 | Emergency (ER) | payer OTHER, SELFPAY ==
[2022-05-01 09:21] VITALS: BP 181/82; PULSE 95; RESP 18; TEMP 36.9; O2SAT 99; BMI 24.6
[2022-05-01 13:22] VITALS: BP 174/77; PULSE 82; RESP 19; TEMP 37.1; O2SAT 99
--- NOTE | 2022-05-01 14:14 | ED.SKABFB ---
HPI - Skin/Abscess/Foreign Bdy General Chief complaint: Skin/Abscess/Foreign Body Stated complaint: possible shingles Time Seen by Provider: 05/01/22 13:16 Source: patient Mode of arrival: Ambulatory Limitations: no limitations History of Present Illness HPI narrative: This is a 61-year-old female who wears glasses but no contact lenses, history of anxiety and prior MRSA skin infections requiring surgical drainage. Patient presents today with concern for shingles she states she has a rash that started on the left side of her face hair and has tracked down her forehead close to her left eye. She states her eye does not hurt but feels a little irritated, she is noticed a little bit red she is had a little bit of tearing but no purulent drainage. She states the rash has not tract below her eye. She has not had shingles before she states it is mildly uncomfortable mostly she is had headaches. She denies fevers, no neck pain, no vision changes, no nausea or vomiting, no chest pain or shortness of breath, no other neurologic changes. Patient denies surgeries other than OR drainage for perirectal abscess. She states she is allergic to penicillin and tetanus vaccine. Patient does not smoke, occasional alcohol, no illicit. 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 She denies any surgeries to her eyes. Related Data Previous Rx's Medication Instructions Recorded cholecalciferol (vitamin D3) 1,250 50,000 unit PO QWEEK #8 caps 02/11/19 mcg (50,000 unit) capsule desonide 0.05 % topical ointment 1 applic topical BID #15 grams 07/18/20 epinephrine 0.3 mg/0.3 mL 0.3 mg (0.3 mL) IM Q5-15M PRN 09/26/20 injection, auto-injector (EpiPen anaphylaxis #2 ea 2-Stevan) hydrocortisone acetate 30 mg 30 mg VA BEDTIME #12 ea 01/23/21 rectal suppository sulfamethoxazole 400 1 tab PO DAILY #14 tabs 07/15/21 mg-trimethoprim 80 mg tablet (Bactrim) hydrocodone 5 mg-acetaminophen 325 1 tab PO Q4-6H PRN pain #14 tabs 07/22/21 mg tablet sulfamethoxazole 800 1 tab PO BID #14 tabs 08/03/21 mg-trimethoprim 160 mg tablet (Bactrim DS) metoclopramide HCl 10 mg tablet 10 mg PO Q6H PRN nausea and 08/05/21 (Reglan) vomiting #10 tabs mupirocin 2 % topical ointment 1 applictn topical BID #15 grams 08/06/21 hydrocortisone acetate 25 mg 25 mg VA BID PRN hemorrhoids #12 ea 02/11/22 rectal suppository temazepam 15 mg capsule 15 mg PO HS PRN insomnia #30 tabs 02/11/22 erythromycin 5 mg/gram (0.5 %) eye 0.5 inch EYE-LEFT QID 7 days #3.5 05/01/22 ointment grams oxycodone 5 mg tablet 5 mg PO Q6H PRN pain #10 tabs 05/01/22 valacyclovir 1 gram tablet 1,000 mg PO TID #21 tabs 05/01/22 Allergies Allergy/AdvReac Type Severity Reaction Status Date / Time Tetanus Vaccines and Toxoid Allergy Intermediate Hives Verified 05/01/22 09:21 Penicillins Allergy Verified 05/01/22 09:21 Review of Systems Review of Systems ROS Unobtainable: All systems reviewed & are unremarkable except as noted in HPI and below Patient History Medical History (Updated 05/01/22 @ 14:34 by Nadya Conway DO) Dust allergy Hyperlipidemia (08/22/12) Hyperlipidemia Insomnia Insomnia secondary to anxiety Normal Papanicolaou smear Osteoporosis Ovarian cyst Surgical History Anesthesia Status post delivery (03/21/76) Status post tubal ligation (04/1986) Family History Mother Fibromyalgia Smoker PAD (peripheral artery disease) Stroke Parkinson's disease Brother Age: 58 Alcoholism Brother Age: 62 Hyperlipidemia Hypertension Smoker CAD (coronary artery disease) Father Small intestine cancer Grandfather Stroke Grandmother No problems noted. Grandmother Ovarian cancer Sister Brain tumor Social History Smoking Status: Never smoker alcohol intake: current Smoking Status: Never smoker alcohol intake frequency: holidays/special occasions only Substance Use Type: does not use Exam Narrative Exam Narrative: GEN: well nourished, well appearing female, alert and oriented x 3, patient appears to be in mild distress. HEENT: Atraumatic, pupils are equal round reactive to light, extraocular movements are intact, nares are clear, TMs are clear with no fluid, there is no conjunctival pallor. Throat is clear without any exudates, erythema, tonsillar enlargement or uvular deviation Visual acuity: right [20/20], left [20/20] without correction. General: no globe trauma Eyelids: normal inspection, eyelids everted for exam on left Conjunctiva/Sclera: normal inspection on the right, left is slightly injected particularly on the medial portion of the sclera Corneas: normal inspection on right, examined with fluroscein on left patient has no dendritic lesions appreciated, there is some mild punctate uptake in the sclera but nothing over the cornea, no ulcers or abrasions appreciated. EOM: intact, no palsy/entrapment Pupils: PERRL, normal accomadation, pupil normal Anterior Chambers: normal inspection, no hypema Posterior: normal fundoscopic on bilaterally HEART: Regular rate and rhythm without murmur, clicks, rubs. LUNGS:Lungs clear to auscultation, no wheezes, rales, crackles, chest moves symmetrically MSCL: Non-tender, no muscle atrophy, muscles strength 5/5 upper and lower extremities, full range of motion, normal gait NEURO:CN 2-12 intact, sensation normal SKIN: Patient has erythematous rash tracking from left scalp over the left forehead towards the left eye stopping just above the medial canthus. It is erythematous with very small vesicles and patchy red blotches. Initial Vital Signs Initial Vital Signs: Vital Signs Temperature 98.4 F 05/01/22 09:21 Pulse Rate 95 H 05/01/22 09:21 Respiratory Rate 18 05/01/22 09:21 Blood Pressure 181/82 H 05/01/22 09:21 Pulse Oximetry 99 05/01/22 09:21 Oxygen Delivery Method 05/01/22 09:21 Course Orders Ordered: Discontinued Medications Fluorescein Sodium (Fluorescein 1 Mg Strip) 1 mg EYE-BOTH NOW ONE Stop: 05/01/22 13:17 Last Admin: 05/01/22 14:22 Dose: 1 mg Documented By: GLEN Proparacaine HCl (Proparacaine 0.5% Ophth Michelle) 1 drops EYE-BOTH NOW ONE Stop: 05/01/22 13:17 Last Admin: 05/01/22 14:21 Dose: 1 drop Documented By: GLEN Vital Signs Vital signs: Vital Signs - 8 hr 05/01/22 09:21 05/01/22 13:22 05/01/22 14:52 Temperature 98.4 F 98.8 F Pulse Rate 95 H 82 88 Respiratory Rate 18 19 16 Blood Pressure 181/82 H 174/77 H 144/70 H Pulse Oximetry 99 99 97 Oxygen Delivery Method Room Air Room Air Room Air MDM - Skin/Abscess/Foreign Bdy MDM Narrative Medical decision making narrative: This is a 61-year-old female with physical exam consistent with shingles on the left side of her face tracking close to her eye, no clear dendritic lesions but there is some slight uptake in the sclera patient was started with a topical antibiotic to encourage hydration and prevention of infection, antivirals and asked to see Ophthalmology, she was given referral to our local day light relief operator she only follows with mall manager at [facility]. Patient and I did discuss strict return precautions and if she has pain in her eye or worsening symptoms is to return for re-evaluation. Discharge Plan Departure Patient Disposition: Home Clinical Impression: Shingles Instructions: DI for Shingles Activity Restrictions/Additional Instructions: Please follow up with Ophthalmology for recheck, there are no lesions or dendrites noted today but you do appear to have shingles close to your eye. There is referral included below, call Tuesday morning to be seen let them know that the ER asked for to be seen same day. Take antivirals until completely gone. Use antibiotic ointment the left eye until you follow-up with ophthalmology. You can take Tylenol up to a 1000 mg every 6 hours and/or ibuprofen up to 800 mg every 8 hours. If in adequate you can take oxycodone 1 tablets every 6 hours as needed for pain. This medication can make you sleepy do not drive, perform hazardous activities or make any major decisions while taking it. This medication will make you constipated please take a stool softener once to twice daily until stools are soft and regular. Prescription sent to [facility] in [place], they close at 6pm today. Please return if you are having significant changes to your vision, worsening pain in her eye, worsening discharge, signs of infection, fevers, chest pain or shortness of breath, passing out, confusion, persistent vomiting or other new or concerning changes. Prescriptions: New valacyclovir 1 gram tablet 1,000 mg PO TID Qty: 21 0RF erythromycin 5 mg/gram (0.5 %) ointment 0.5 inch EYE-LEFT QID 7 Days Qty: 3.5 0RF oxycodone 5 mg tablet 5 mg PO Q6H PRN (Reason: pain) Qty: 10 0RF No Action cholecalciferol (vitamin D3) 50,000 unit capsule 50,000 unit PO QWEEK Qty: 8 0RF metoclopramide HCl [Reglan] 10 mg tablet 10 mg PO Q6H PRN (Reason: nausea and vomiting) Qty: 10 0RF desonide 0.05 % ointment 1 applic topical BID Qty: 15 0RF hydrocortisone acetate 30 mg suppository 30 mg VA BEDTIME Qty: 12 0RF hydrocortisone acetate 25 mg suppository 25 mg VA BID PRN (Reason: hemorrhoids) Qty: 12 0RF Rx Instructions: Stop after 7 days of use temazepam 15 mg capsule 15 mg PO HS PRN (Reason: insomnia) Qty: 30 0RF Rx Instructions: Take 1 tablet by mouth at bedtime as needed for insomnia. sulfamethoxazole-trimethoprim [Bactrim] 400-80 mg tablet 1 tab PO DAILY Qty: 14 0RF sulfamethoxazole-trimethoprim [Bactrim DS] 800-160 mg tablet 1 tab PO BID Qty: 14 0RF hydrocodone-acetaminophen 5-325 mg tablet 1 tab PO Q4-6H PRN (Reason: pain) Qty: 14 0RF epinephrine [EpiPen 2-Stevan] 0.3 mg/0.3 mL auto-injector 0.3 mg IM Q5-15M PRN (Reason: anaphylaxis) Qty: 2 0RF Rx Instructions: do not exceed 3 doses per episode mupirocin 2 % ointment 1 applictn TOP BID Qty: 15 0RF Referrals: Harley Daniel MD [Physician] - Aleyda Ulloa DO [Primary Care Provider] -
[2022-05-01] MEDS: PROPARACAINE 0.5% OPHTH SOL 1 DROPS EYE-BOTH (14:21)
[2022-05-01] MEDS: FLUORESCEIN 1 MG STRIP EYE-BOTH (14:22)
[2022-05-01 14:52] VITALS: BP 144/70; PULSE 88; RESP 16; O2SAT 97
== END 2022-05-01 14:53 | disposition home or self-care (01) ==
PROVIDERS: Emergency Provider Emergency Medicine; PCP Family Medicine
DX: B02.9 Zoster without complications (principal)
CPT/HCPCS: 99282

== ENCOUNTER → 2022-07-30 07:32 | Outpatient (CLI) | payer OTHER, SELFPAY ==
--- NOTE | 2022-07-30 07:34 | DI.MG.S_ITS ---
BILATERAL DIGITAL SCREENING MAMMOGRAM 3D/2D WITH CAD: 07/30/2022 CLINICAL: Routine screening. Comparison is made to exams dated: 06/27/2020 mammogram, 12/26/2017 mammogram, 12/18/2015 mammogram, and 06/22/2012 mammogram - . Both breasts are heterogeneously dense, which may obscure small masses (category c / 51-75% glandular tissue). Current study was also evaluated with a Computer Aided Detection (CAD) system. No significant masses, calcifications, or other findings are seen in either breast. There has been no significant interval change. IMPRESSION: NEGATIVE There is no mammographic evidence of malignancy. A 1 year screening mammogram is recommended. Based on the Tyrer Cuzick model (a risk assessment model) the patient's lifetime risk is 9.0% and her 10 year risk is 4.0%. According to the ACR, ACS, and NCCN guidelines, an annual breast MRI exam along with mammogram is recommended if the patient's lifetime risk is 20% or greater. This exam was interpreted at Station ID: [id number]. NOTE: For mammograms, a report in lay terms will be sent to the patient. Approximately 15% of breast malignancies will not be visualized mammographically. In the management of a palpable breast mass, a negative mammogram must not discourage biopsy of a clinically suspicious lesion. Electronically Signed By: Vadim [email or web address]:07/30/2022 10:08:25 letter sent: Normal Exam ACR BI-RADS Category 1: Negative [id number]
[2022-07-30 11:12] LABS: Alanine Aminotransferase 22 IU/L (<35); Albumin 4.1 g/dL (3.5-5.0); Albumin Globulin Ratio 1.6 (1.0-2.8); Alkaline Phosphatase 46 U/L (38-126); Aspartate Aminotransferase 28 IU/L (14-36); BUN Creatinine Ratio 22.5 (6-22); Bilirubin Total 1.1 mg/dL (0.2-1.3); Blood Urea Nitrogen 16 mg/dL (7-17); Carbon Dioxide 29 mmol/L (22-32); Chloride 101 mmol/L (98-107); Estimated Glomerular Filt Rate > 60 mL/min (>60); Globulin 2.6 g/dL (1.7-4.1); Glucose 82 mg/dL (80-110); HEMOLYSIS < 15 (0-50); Potassium 3.9 mmol/L (3.4-5.1); Sodium 137 mmol/L (137-145); Total Protein 6.7 g/dL (6.3-8.2)
[2022-07-30 11:24] LABS: Vitamin D 25 Hydroxy (D3) 20.6 ng/mL (30.0-100.0)
[2022-07-30 16:50] LABS: Free T3, Triiodothyronine Free 3.69 pg/mL (2.77-5.27); Free T4, Direct Thyroxine 1.12 ng/dL (0.78-2.19)
[2022-07-30 17:04] LABS: Thyroid Stimulating Hormone 2.71 uIU/mL (0.47-4.68)
== END ==
PROVIDERS: PCP Family Medicine; Referring Provider Family Medicine; Visit Provider Family Medicine
DX: Z12.31 Encounter for screening mammogram for malignant neoplasm of breast (principal); E78.00 Pure hypercholesterolemia, unspecified; R73.01 Impaired fasting glucose; Z13.9 Encounter for screening, unspecified
CPT/HCPCS: 36415; 77063; 77067; 80053; 82306; 84439; 84443; 84481

== ENCOUNTER → 2022-11-08 07:09 | Outpatient (CLI) | payer OTHER, SELFPAY ==
[2022-11-08 08:20] LABS: Cholesterol 262 mg/dL (140-199); HDL Cholesterol 75 mg/dL (40-60); LDL Cholesterol Calculated 174 mg/dL (<100); Triglycerides 64 mg/dL (35-150)
[2022-11-08 08:38] LABS: Vitamin D 25 Hydroxy (D3) 31.9 ng/mL (30.0-100.0)
== END ==
PROVIDERS: PCP Family Medicine; Referring Provider Family Medicine; Visit Provider Family Medicine
DX: E78.5 Hyperlipidemia, unspecified (principal); M81.0 Age-related osteoporosis without current pathological fracture; E55.9 Vitamin D deficiency, unspecified
CPT/HCPCS: 36415; 80061; 82306

== ENCOUNTER → 2022-12-28 11:02 | Outpatient (CLI) | payer OTHER, SELFPAY | PROVIDERS: PCP Family Medicine; Visit Provider Family Medicine | DX: N89.8 Other specified noninflammatory disorders of vagina (principal) | CPT/HCPCS: 87210; 87220 ==

== ENCOUNTER 2023-02-09 09:17 | Emergency (ER) | payer OTHER, SELFPAY ==
[2023-02-09] VITALS (8 sets, daily range): BP systolic 152–209; BP diastolic 70–94; PULSE 70–82; RESP 14–18; TEMP 37.1; O2SAT 98–100; BMI 17.6
--- NOTE | 2023-02-09 09:25 | DI.RAD.S_ITS ---
PROCEDURE: XR CHEST 1V INDICATIONS: chest pain TECHNIQUE: One view of the chest was acquired. COMPARISON: [facility], , CHEST 1 VIEW, 11/14/2008, 8:42. FINDINGS: Surgical changes and devices: None. Lungs and pleura: Lungs are clear. No pleural effusions or pneumothorax. Mediastinum: Mediastinal contours appear normal. Heart size is mildly prominent. Bones and chest wall: No suspicious bony lesions. Overlying soft tissues appear unremarkable. IMPRESSION: Portable chest within normal limits for age. Dictated by: America Davison M.D. on 02/09/2023 at 10:16 Approved by: America Davison M.D. on 02/09/2023 at 10:16
[2023-02-09 09:38] LABS: Add Manual Diff / Slide Review NO; Basophils Absolute Auto 100 /uL (0-100); Basophils Percent Auto 0.9 % (0-2); Eosinophils Absolute Auto 100 /uL (0-450); Hematocrit 41.9 % (36-46); Hemoglobin 14.2 g/dL (12.0-16.0); Lymphocytes Absolute Auto 1100 /uL (1100-4500); Lymphocytes Percent Auto 15.7 % (25-40); Mean Corpuscular HGB Conc 33.9 % (30-36); Mean Corpuscular Volume 91.5 fL (80-100); Monocytes Absolute Auto 400 /uL (0-900); Neutrophils Absolute Auto 5200 /uL (1500-7000); Neutrophils Percent Auto 76.4 % (50-75); Platelet Count 325 X10^3/uL (150-400); Red Blood Cell Count 4.57 X10^6/uL (4.0-5.2); Red Cell Distribution Width 12.8 % (11.6-14.8); White Blood Cell Count 6.8 X10^3/uL (4.5-11.0)
[2023-02-09 09:43] LABS: INR 1.1 (0.9-1.3); Prothrombin Time 12.2 SECONDS (10.1-12.7)
[2023-02-09 09:46] LABS: PTT Partial Thromboplastin Tim 34 SECONDS (26-36)
[2023-02-09 09:47] LABS: Alanine Aminotransferase 17 IU/L (<35); Albumin 4.3 g/dL (3.5-5.0); Albumin Globulin Ratio 1.5 (1.0-2.8); Alkaline Phosphatase 41 U/L (38-126); Aspartate Aminotransferase 34 IU/L (14-36); BUN Creatinine Ratio 23.8 (6-22); Bilirubin Total 1.2 mg/dL (0.2-1.3); Blood Urea Nitrogen 15 mg/dL (7-17); Calcium 9.3 mg/dL (8.4-10.2); Carbon Dioxide 27 mmol/L (22-32); Chloride 101 mmol/L (98-107); Creatine Kinase 48 U/L (30-135); Estimated Glomerular Filt Rate > 60 mL/min (>60); Globulin 2.9 g/dL (1.7-4.1); Glucose 108 mg/dL (80-110); HEMOLYSIS 18 (0-50); Lipase 145 U/L (23-300); Magnesium 2.1 mg/dL (1.6-2.3); Potassium 3.7 mmol/L (3.4-5.1); Sodium 134 mmol/L (137-145); Total Protein 7.2 g/dL (6.3-8.2)
[2023-02-09 09:58] LABS: Troponin I < 0.012 ng/mL (0.01-0.034)
--- NOTE | 2023-02-09 10:53 | ED.WEAKNESS ---
HPI - Weakness General Chief complaint: Weakness Stated complaint: high BP/weight down/withdrawls Gabapentin Time Seen by Provider: 02/09/23 10:42 Source: patient Mode of arrival: Ambulatory History of Present Illness HPI Narrative: Patient here for nausea dry heaves weight loss and feeling very weak. Patient states she has been dealing with using Neurontin for the past 10 months. 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 However she does not like the way Neurontin makes her feel which is nauseous and weak. It really does not control the pain very well any ways. One month ago her primary care lowered it to 300 mg at night. For the 1st few days she did get nauseous and weak and had no appetite then started improve. Three days ago she decreased herself 150 mg a night and the symptoms returned. Patient denies any chest pain or shortness of breath. No fever chills. Related Data Previous Rx's Medication Instructions Recorded cholecalciferol (vitamin D3) 1,250 50,000 unit PO QWEEK #8 caps 02/11/19 mcg (50,000 unit) capsule epinephrine 0.3 mg/0.3 mL 0.3 mg (0.3 mL) IM Q5-15M PRN 09/26/20 injection, auto-injector (EpiPen anaphylaxis #2 ea 2-Stevan) gabapentin 600 mg tablet 1,200 mg (2 x 600 mg) PO BEDTIME 08/13/22 #180 tabs capsaicin 0.025 % topical cream 1 applic topical BID PRN pain #25 12/10/22 grams lidocaine 5 % topical ointment 1 applic topical BID PRN pain 12/10/22 #35.44 grams ondansetron 4 mg disintegrating 4 mg PO Q8H PRN nausea and 02/09/23 tablet vomiting #15 tabs ondansetron 4 mg disintegrating 4 mg PO Q8H PRN nausea and 02/09/23 tablet vomiting #15 tabs ondansetron 4 mg disintegrating 4 mg PO Q8H PRN nausea and 02/09/23 tablet vomiting #15 tabs Allergies Allergy/AdvReac Type Severity Reaction Status Date / Time Tetanus Vaccines and Toxoid Allergy Intermediate Hives Verified 12/28/22 10:28 Penicillins Allergy Verified 12/28/22 10:28 Review of Systems Review of Systems Narrative: GENERAL: negative chills, positive fatigue, malaise, negative fever, sweats. HEENT: negative sinus pain, ear pain, sore throat RESPIRATORY: negative dyspnea, cough CARDIOVASCULAR: negative chest pain, palpitations GASTROINTESTINAL: Positive nausea, negative vomiting, abdominal pain : negative dysuria, frequency, hematuria MUSCULOSKELETAL: negative muscle or bony pain SKIN: negative rash, skin lesions NEUROLOGIC: negative weakness, numbness ROS Unobtainable: All systems reviewed & are unremarkable except as noted in HPI and below Patient History Medical History Cellulitis and abscess of buttock Perirectal abscess (~06/2021) Hemorrhoid Dust allergy Osteoporosis Insomnia secondary to anxiety Hyperlipidemia Ovarian cyst Normal Papanicolaou smear Hyperlipidemia (08/22/12) Insomnia Surgical History Anesthesia Status post delivery (03/21/76) Status post tubal ligation (04/1986) Family History Mother Fibromyalgia Smoker PAD (peripheral artery disease) Stroke Parkinson's disease Brother Age: 59 Alcoholism Brother Age: 63 Hyperlipidemia Hypertension Smoker CAD (coronary artery disease) Father Small intestine cancer Grandfather Stroke Grandmother No problems noted. Grandmother Ovarian cancer Sister Brain tumor Social History Smoking Status: Never smoker alcohol intake: current (1 beer every 6 months) substance use type: marijuana (in the 70s) Smoking Status: Never smoker alcohol intake frequency: holidays/special occasions only Substance Use Type: does not use Exam Narrative Exam Narrative: GENERAL: in no distress, not toxic not dyspneic HEAD: Normocephalic. EYES: Pupils equal round ENT: Mucous membranes moist. NECK: Trachea midline. CARDIOVASCULAR: Regular rate and rhythm RESPIRATORY: Clear to auscultation. Breath sounds equal bilaterally. No wheezes, rales, or rhonchi. GASTROINTESTINAL: Abdomen soft, non-tender EXTREMITIES: No gross deformities. BACK: No flank tenderness. NEURO: AOx4. Fast exam is negative. Clear speech no facial droop light touch intact about the face hands and legs strong equal set up and charger. Negative pronator drift. SKIN: Warm and dry PSYCH: Slightly anxious, is cooperative Initial Vital Signs Initial Vital Signs: Vital Signs Temperature 98.8 F 02/09/23 09:23 Pulse Rate 82 02/09/23 09:23 Respiratory Rate 18 02/09/23 09:23 Blood Pressure 209/94 H 02/09/23 09:23 Pulse Oximetry 99 02/09/23 09:23 Oxygen Delivery Method Room Air 02/09/23 09:23 Course Orders Ordered: ED Orders 02/09/23 09:25 XR chest 1V Stat Complete Blood Count AUTO DIFF Stat Comprehensive Metabolic Panel Stat Lipase Stat Magnesium Stat PTT Partial Thromboplastin Kenny Stat Prothrombin Time INR Stat Troponin & CK Cardiac Panel Stat EKG-12 Lead Stat Discontinued Medications Sodium Chloride (Normal Saline 0.9%) 1,000 mls @ 1,000 mls/hr IV BOLUS ONE Stop: 02/09/23 11:51 Last Infusion: 02/09/23 12:05 Dose: Infused Documented By: Admin: 02/09/23 10:58 Dose: 1,000 mls/hr Documented By: VINNIE Ondansetron HCl (Ondansetron 4 Mg/2 Ml Inj) 4 mg IV NOW ONE Stop: 02/09/23 10:53 Last Admin: 02/09/23 10:58 Dose: 4 mg Documented By: VINNIE Vital Signs Vital signs: Vital Signs - 8 hr 02/09/23 10:15 02/09/23 10:27 02/09/23 10:27 Pulse Rate 76 76 Respiratory Rate 16 Blood Pressure 182/88 H Pulse Oximetry 99 98 Oxygen Delivery Method 02/09/23 11:41 02/09/23 12:07 Pulse Rate 78 70 Respiratory Rate 14 16 Blood Pressure 152/70 H 161/70 H Pulse Oximetry 100 100 Oxygen Delivery Method Room Air MDM - Weakness Lab Data 02/09/23 09:25 02/09/23 09:25 Labs: Lab Results 02/09/23 Range/Units 09:25 WBC 6.8 (4.5-11.0) X10^3/uL RBC 4.57 (4.0-5.2) X10^6/uL Hgb 14.2 (12.0-16.0) g/dL Hct 41.9 (36-46) % MCV 91.5 (80-100) fL MCH 31.0 (26-34) PG MCHC 33.9 (30-36) % RDW 12.8 (11.6-14.8) % Plt Count 325 (150-400) X10^3/uL Neut % (Auto) 76.4 H (50-75) % Lymph % (Auto) 15.7 L (25-40) % Gregg % (Auto) 6.0 (3-14) % Eos % (Auto) 1.0 L (2-4) % Baso % (Auto) 0.9 (0-2) % Neut # (Auto) 5200 (6337-2156) /uL Lymph # (Auto) 1100 (6645-6208) /uL Gregg # (Auto) 400 (0-900) /uL Eos # (Auto) 100 (0-450) /uL Baso # (Auto) 100 (0-100) /uL PT 12.2 (10.1-12.7) SECONDS INR 1.1 (0.9-1.3) APTT 34 (26-36) SECONDS Sodium 134 L (137-145) mmol/L Potassium 3.7 (3.4-5.1) mmol/L Chloride 101 (98-107) mmol/L Carbon Dioxide 27 (22-32) mmol/L BUN 15 (7-17) mg/dL Creatinine 0.63 (0.52-1.04) mg/dL Estimated GFR > 60 (>60) mL/min BUN/Creatinine Ratio 23.8 H (6-22) Glucose 108 (80-110) mg/dL Calcium 9.3 (8.4-10.2) mg/dL Magnesium 2.1 (1.6-2.3) mg/dL Total Bilirubin 1.2 (0.2-1.3) mg/dL AST 34 (14-36) IU/L ALT 17 (<35) IU/L Alkaline Phosphatase 41 (38-126) U/L Total Creatine Kinase 48 (30-135) U/L Troponin I < 0.012 (0.01-0.034) ng/mL Total Protein 7.2 (6.3-8.2) g/dL Albumin 4.3 (3.5-5.0) g/dL Globulin 2.9 (1.7-4.1) g/dL Albumin/Globulin Ratio 1.5 (1.0-2.8) Lipase 145 (23-300) U/L Urine Dip Bedside Urine Glucose Negative Bedside Urine Bilirubin - Negative Bedside Urine Ketone - Negative Urine Specific [place] 1.01 Bedside Urine Occult Blood - Negative Bedside Urine pH 6 Bedside Urine Protein - Negative Bedside Urine Urobilinogen - Negative Bedside Urine Nitrite - Negative Bedside Urine Leukocytes - Negative Esterase Imaging Data Chest x-ray: Radiologist Impression: [place] [id number] [place] [id number] XRay Report Signed Patient: Stacey Welsh MR#: [id number] : 1960 Acct:[id number] Age/Sex: 62 / F Date of Service: 02/09/23 Loc: ED Accession Number: [id number] Procedure: XR chest 1V Ordering Provider: Daniel Jack MD PROCEDURE: XR CHEST 1V INDICATIONS: chest pain TECHNIQUE: One view of the chest was acquired. COMPARISON: [facility], , CHEST 1 VIEW, 11/14/2008, 8:42. FINDINGS: Surgical changes and devices: None. Lungs and pleura: Lungs are clear. No pleural effusions or pneumothorax. Mediastinum: Mediastinal contours appear normal. Heart size is mildly prominent. Bones and chest wall: No suspicious bony lesions. Overlying soft tissues appear unremarkable. IMPRESSION: Portable chest within normal limits for age. Dictated by: America Davison M.D. on 02/09/2023 at 10:16 Approved by: America Davison M.D. on 02/09/2023 at 10:16 [facility] Narrative Medical decision making narrative: Patient here for nausea dry heaves weight loss and feeling very weak. Patient states she has been dealing with using Neurontin for the past 10 months. 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 However she does not like the way Neurontin makes her feel which is nauseous and weak. It really does not control the pain very well any ways. One month ago her primary care lowered it to 300 mg at night. For the 1st few days she did get nauseous and weak and had no appetite then started improve. Three days ago she decreased herself 150 mg a night and the symptoms returned. Patient denies any chest pain or shortness of breath. No fever chills. After history and exam CBC CMP troponin EKG chest x-ray normal saline Zofran [facility] CC: Nausea weakness Complicating co-morbidities: Patient trying to taper Neurontin Data collected from: Patient Medical records reviewed: No recent visit for this complaint Differential considered: Includes but not limited to medication reaction dehydration electrolyte imbalance hypertensive urgency Exam documented above, pertinent findings include: Elevated blood pressure Lab Test results independently reviewed as above. Pertinent findings: WBC 6.8 hemoglobin 14.2 INR 1.1 sodium 134 potassium 3.7 BUN 15 creatinine 0.63 GFR greater than 60 glucose 108 troponin less than 0.012 lipase 145 Independently reviewed EKG normal sinus rhythm rate 76 [time] EKG is normal sinus rhythm rate [ ] and free of any signs of ischemia or ectopy. No ST segmental elevation or depression. No T wave inversions Imaging studies independently reviewed: Chest x-ray no acute finding Consultations: None indicated Treatments: Normal saline Zofran Re-evaluations: 12:06 p.m.. Patient feeling much better. Blood pressure 152/70. She has been able to eat and drink while here. She is no longer nauseous. Reviewed results with her and she does agree likely her symptoms are due to decreasing Neurontin to quickly. However she does not want to continue it because the side effects are worse in the neuralgia symptoms. Return precautions reviewed with her. She desires discharge home. Patient feels much more relaxed. Not as anxious. Discussion: Appropriate for discharge home. Blood pressure has improved at time of discharge. Likely component of being anxious. Feeling much better at time of discharge. She did eat and drink. No longer nauseous. Return precautions reviewed with her. She will follow up with her family doctor regarding weaning off of Neurontin properly. Not toxic at discharge. She desires discharge home Diagnosis: Medication reaction Discharge Plan Departure Patient Disposition: Home Clinical Impression: Medication reaction Qualifiers: Encounter type: initial encounter Qualified Code(s): T50.905A - Adverse effect of unspecified drugs, medicaments and biological substances, initial encounter Instructions: Dos and Don'ts for Prescription Medications Activity Restrictions/Additional Instructions: Please call your family doctor regarding weaning off of Neurontin. The risks and benefits of taking this medication needs to be discussed with your family doctor. Keep well hydrated. Return if worse if any questions or concerns. Today's laboratory studies and workup has been reassuring. Your symptoms are likely due to decreasing the Neurontin to quickly. 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 Prescriptions: New ondansetron 4 mg tablet,disintegrating 4 mg PO Q8H PRN (Reason: nausea and vomiting) Qty: 15 0RF ondansetron 4 mg tablet,disintegrating 4 mg PO Q8H PRN (Reason: nausea and vomiting) Qty: 15 0RF ondansetron 4 mg tablet,disintegrating 4 mg PO Q8H PRN (Reason: nausea and vomiting) Qty: 15 0RF No Action cholecalciferol (vitamin D3) 50,000 unit capsule 50,000 unit PO QWEEK Qty: 8 0RF gabapentin 600 mg tablet 1,200 mg PO BEDTIME Qty: 180 1RF lidocaine 5 % ointment 1 applic topical BID PRN (Reason: pain) Qty: 35.44 0RF capsaicin 0.025 % cream 1 applic topical BID PRN (Reason: pain) Qty: 25 0RF Rx Instructions: do not wash area for at least 30 min after application epinephrine [EpiPen 2-Stevan] 0.3 mg/0.3 mL auto-injector 0.3 mg IM Q5-15M PRN (Reason: anaphylaxis) Qty: 2 0RF Rx Instructions: do not exceed 3 doses per episode Referrals: Aleyda Ulloa DO [Primary Care Provider] - Stand Alone Forms: Patient Portal/API
[2023-02-09] MEDS: SODIUM CHLORIDE 0.9% 1,000 ML 1000 ML IV (10:58)
[2023-02-09] MEDS: ONDANSETRON 4 MG/2 ML INJ IV (10:58)
== END 2023-02-09 12:23 | disposition home or self-care (01) ==
PROVIDERS: Emergency Provider Emergency Medicine; PCP Family Medicine
DX: R07.9 Chest pain, unspecified (principal); R53.1 Weakness; T50.905A Adverse effect of unspecified drugs, medicaments and biological substances, initial encounter
CPT/HCPCS: 36415; 71045; 80053; 81003; 82550; 83690; 83735; 84484; 85025; 85610; 85730; 93005; 96361; 96374; 99284; J2405

== ENCOUNTER → 2023-02-21 13:01 | Outpatient (CLI) | payer OTHER, SELFPAY ==
--- NOTE | 2023-02-21 13:02 | DI.CT.S_ITS ---
PROCEDURE: CT ABDOMEN PELVIS WO CON INDICATIONS: persistent abdominal pain/nausea/weight loss TECHNIQUE: Noncontrast 5 mm thick sections acquired from the diaphragms to the symphysis. 5 mm coronal and sagittal reformats were then performed. For radiation dose reduction, the following was used: automated exposure control, adjustment of mA and/or kV according to patient size. COMPARISON: [facility], CT, ABDOMEN/PELVIS WITH CONTRAST, 11/14/2008, 8:44. FINDINGS: Image quality: Limited by lack of IV and oral contrast. ABDOMEN: Lung bases: Lung bases are clear. Heart size is normal. Solid organs: Liver is normal in size. Gallbladder wall is not thickened. Pancreas is normal in contours. Spleen is normal in size. No adrenal nodules. Kidneys are normal in size, without hydronephrosis or nephrolithiasis. Peritoneum and bowel: Unenhanced bowel loops demonstrate normal wall thickness and caliber. No free fluid or air. Colonic diverticulosis is seen, without findings of active diverticulitis. Nodes and vessels: No retroperitoneal or mesenteric adenopathy by size criteria. Aorta and inferior vena cava are normal in caliber. Dense atherosclerotic calcification is noted. Miscellaneous: No ventral hernias. PELVIS: Genitourinary: Bladder wall thickness is normal. The uterus appears normal for age. No adnexal masses are seen. Miscellaneous: No inguinal hernias or adenopathy. Bones: No suspicious bony lesions. No vertebral body compression fractures. IMPRESSION: No imaging explanation is found for this patient's presenting symptoms. No masses or enlarged lymph nodes can be seen to the limits of this study this performed without IV and oral contrast. There is dense atherosclerotic calcification of the aorta. Dictated by: aJylen Ramirez M.D. on 02/21/2023 at 16:34 Approved by: Jaylen Ramirez M.D. on 02/21/2023 at 16:36
== END ==
PROVIDERS: PCP Family Medicine; Referring Provider Family Medicine; Visit Provider Family Medicine
DX: I70.0 Atherosclerosis of aorta (principal); R63.4 Abnormal weight loss; R10.9 Unspecified abdominal pain; R11.0 Nausea
CPT/HCPCS: 74176

== ENCOUNTER → 2023-08-22 08:09 | Outpatient (CLI) | payer OTHER, SELFPAY ==
--- NOTE | 2023-08-22 08:11 | DI.MG.S_ITS ---
BILATERAL DIGITAL SCREENING MAMMOGRAM 3D/2D WITH CAD: 08/22/2023 CLINICAL: Routine screening. Comparison is made to exams dated: 07/30/2022 mammogram, 06/27/2020 mammogram, and 12/26/2017 mammogram - [facility]. Both breasts are heterogeneously dense, which may obscure small masses (category c / 51-75% glandular tissue). Current study was also evaluated with a Computer Aided Detection (CAD) system. No significant masses, calcifications, or other findings are seen in either breast. There has been no significant interval change. IMPRESSION: NEGATIVE There is no mammographic evidence of malignancy. A 1 year screening mammogram is recommended. Based on the Tyrer Cuzick model (a risk assessment model) the patient's lifetime risk is 8.6% and her 10 year risk is 4.0%. According to the ACR, ACS, and NCCN guidelines, an annual breast MRI exam along with mammogram is recommended if the patient's lifetime risk is 20% or greater. This exam was interpreted at Station ID: [id number]. NOTE: For mammograms, a report in lay terms will be sent to the patient. Approximately 15% of breast malignancies will not be visualized mammographically. In the management of a palpable breast mass, a negative mammogram must not discourage biopsy of a clinically suspicious lesion. Electronically Signed By: Perlita goddard/estephanie:08/22/2023 14:57:22 letter sent: Normal Exam ACR BI-RADS Category 1: Negative [id number]
== END ==
PROVIDERS: PCP Family Medicine; Referring Provider Family Medicine; Visit Provider Family Medicine
DX: Z12.31 Encounter for screening mammogram for malignant neoplasm of breast (principal); R92.333 Mammographic heterogeneous density, bilateral breasts
CPT/HCPCS: 77063; 77067

== ENCOUNTER → 2024-08-21 11:00 | Outpatient (CLI) | payer MEDICARE, OTHER, SELFPAY ==
[2024-08-21 11:42] LABS: Add Manual Diff / Slide Review NO; Basophils Absolute Auto 100 /uL (0-100); Basophils Percent Auto 1.2 % (0-2); Eosinophils Absolute Auto 200 /uL (0-450); Eosinophils Percent Auto 2.6 % (2-4); Hematocrit 42.5 % (36-46); Hemoglobin 14.2 g/dL (12.0-16.0); Lymphocytes Absolute Auto 1300 /uL (1100-4500); Lymphocytes Percent Auto 18.2 % (25-40); Mean Corpuscular HGB Conc 33.4 % (30-36); Mean Corpuscular Hemoglobin 30.2 PG (26-34); Mean Corpuscular Volume 90.5 fL (80-100); Monocytes Absolute Auto 500 /uL (0-900); Monocytes Percent Auto 7.4 % (3-14); Neutrophils Absolute Auto 4900 /uL (1500-7000); Neutrophils Percent Auto 70.6 % (50-75); Platelet Count 317 X10^3/uL (150-400); Red Cell Distribution Width 13.9 % (11.6-14.8); White Blood Cell Count 6.9 X10^3/uL (4.5-11.0)
[2024-08-21 12:05] LABS: Alanine Aminotransferase 24 IU/L (<35); Albumin 4.6 g/dL (3.5-5.0); Albumin Globulin Ratio 1.6 (1.0-2.8); Alkaline Phosphatase 52 U/L (38-126); Aspartate Aminotransferase 34 IU/L (14-36); BUN Creatinine Ratio 24.4 (6-22); Bilirubin Total 0.9 mg/dL (0.2-1.3); Blood Urea Nitrogen 19 mg/dL (7-17); Calcium 9.7 mg/dL (8.4-10.2); Carbon Dioxide 23 mmol/L (22-32); Chloride 106 mmol/L (98-107); Estimated Glomerular Filt Rate > 60 mL/min (>60); Globulin 2.8 g/dL (1.7-4.1); Glucose 98 mg/dL (70-99); HEMOLYSIS < 15 (0-50); Potassium 4.8 mmol/L (3.4-5.1); Sodium 138 mmol/L (137-145); Total Protein 7.4 g/dL (6.3-8.2)
[2024-08-21 12:38] LABS: TSH w/ Reflex to FT4 2.08 uIU/mL (0.47-4.68)
[2024-08-21 12:57] LABS: Vitamin B12 732 pg/mL (239-931)
[2024-08-22 04:08] LABS: CRP, High Sensitivity 0.93 mg/L (0.00-3.00)
[2024-08-22 05:40] LABS: RPR Screen Non Reactive (Non Reactive)
== END ==
PROVIDERS: PCP Family Medicine; Referring Provider Family Medicine; Visit Provider Family Medicine
DX: R63.4 Abnormal weight loss (principal); E78.5 Hyperlipidemia, unspecified; R53.81 Other malaise; R53.83 Other fatigue; R53.1 Weakness
CPT/HCPCS: 36415; 80053; 82607; 84443; 85025; 86140; 86592

== ENCOUNTER 2024-09-10 11:16 | Emergency (ER) | payer MEDICARE, OTHER, SELFPAY ==
[2024-09-10] VITALS (12 sets, daily range): BP systolic 145–214; BP diastolic 77–96; PULSE 83–122; RESP 14–32; TEMP 36.9; O2SAT 94–99
--- NOTE | 2024-09-10 11:31 | EKG_ITS ---
[place] [id number] [place] [address] Test Date: 2024-09-10 Pat Name: Stacey Welsh Department: Room: Gender: Female Supervisor Wood Room: DENNIS : 1960 Requested By: Order Number: [id number] Reading MD: Win Hernandez MD Measurements Intervals [place] Rate: 85 P: 74 MA: 136 QRS: 49 QRSD: 82 T: 69 QT: 350 QTc: 416 Interpretive Statements Normal sinus rhythm Nonspecific ST and T wave abnormality Electronically Signed On 09-10-2024 12:06:22 PDT by Win Hernandez MD
--- NOTE | 2024-09-10 11:42 | DI.RAD.S_ITS ---
PROCEDURE: XR CHEST 1V INDICATIONS: altered mental status TECHNIQUE: One view of the chest was acquired. COMPARISON: [facility], CR, XR CHEST 1V, 02/09/2023, 9:37. FINDINGS: Surgical changes and devices: None. Lungs and pleura: Lungs are clear. No pleural effusions or pneumothorax. Mediastinum: Mediastinal contours appear normal. Heart size is normal. Bones and chest wall: No suspicious bony lesions. Overlying soft tissues appear unremarkable. IMPRESSION: No acute pulmonary process. Dictated by: America Davison M.D. on 09/10/2024 at 12:15 Approved by: America Davison M.D. on 09/10/2024 at 12:16
[2024-09-10 11:50] LABS: Add Manual Diff / Slide Review NO; Basophils Absolute Auto 100 /uL (0-100); Basophils Percent Auto 1.2 % (0-2); Eosinophils Absolute Auto 100 /uL (0-450); Hematocrit 39.8 % (36-46); Hemoglobin 13.6 g/dL (12.0-16.0); Lymphocytes Absolute Auto 900 /uL (1100-4500); Lymphocytes Percent Auto 12.7 % (25-40); Mean Corpuscular HGB Conc 34.2 % (30-36); Mean Corpuscular Hemoglobin 30.7 PG (26-34); Mean Corpuscular Volume 89.8 fL (80-100); Monocytes Absolute Auto 500 /uL (0-900); Monocytes Percent Auto 7.2 % (3-14); Neutrophils Absolute Auto 5400 /uL (1500-7000); Neutrophils Percent Auto 77.9 % (50-75); Platelet Count 331 X10^3/uL (150-400); Red Blood Cell Count 4.43 X10^6/uL (4.0-5.2); Red Cell Distribution Width 13.4 % (11.6-14.8)
[2024-09-10 12:00] LABS: Alanine Aminotransferase 23 IU/L (<35); Albumin 4.5 g/dL (3.5-5.0); Albumin Globulin Ratio 1.7 (1.0-2.8); Alkaline Phosphatase 49 U/L (38-126); Aspartate Aminotransferase 31 IU/L (14-36); BUN Creatinine Ratio 17.7 (6-22); Bilirubin Total 0.9 mg/dL (0.2-1.3); Blood Urea Nitrogen 14 mg/dL (7-17); Calcium 9.5 mg/dL (8.4-10.2); Carbon Dioxide 25 mmol/L (22-32); Chloride 105 mmol/L (98-107); Creatine Kinase 99 U/L (30-135); Estimated Glomerular Filt Rate > 60 mL/min (>60); Ethanol (ETOH) < 10 mg/dL; Globulin 2.6 g/dL (1.7-4.1); Glucose 117 mg/dL (70-99); HEMOLYSIS < 15 (0-50); Lactate (Lactic Acid) 0.8 mmol/L (0.7-2.1); Potassium 3.9 mmol/L (3.4-5.1); Sodium 137 mmol/L (137-145); Total Protein 7.1 g/dL (6.3-8.2)
[2024-09-10 12:01] LABS: Ur Creatinine Normal (Normal); Ur Specific Gravity Normal (Normal); Urine pH Normal (Normal)
[2024-09-10 12:02] LABS: UR Morphine/Opiate cutoff 300 Negative (Negative); Urine Amphetamines Negative (Negative); Urine Barbiturates Negative (Negative); Urine Benzodiazepines Negative (Negative); Urine Cocaine Negative (Negative); Urine MDMA Negative (Negative); Urine Methadone Negative (Negative); Urine Methamphetamines Negative (Negative); Urine Oxycodone Negative (Negative); Urine Phencyclidine Negative (Negative); Urine Tetrahydrocannabinol Negative (Negative); Urine Tricyclic Antidepressant Negative (Negative)
[2024-09-10 12:12] LABS: Troponin I < 0.012 ng/mL (0.01-0.034)
--- NOTE | 2024-09-10 12:14 | ED.AMS ---
HPI - Altered Mental Status General Chief Complaint: Altered Mental Status Stated Complaint: Fast heart rate , neurological issues Time Seen by Provider: 09/10/24 11:42 Source: patient and family Mode of arrival: Ambulatory History of Present Illness HPI narrative: Patient is a 63-year-old female history of chronic tremors and anxiety presents today with worsening tremors. Daughter at bedside reports gradual decline over the last 5 years. Family reports that shaking has gotten much worse she was fallen multiple times. She lives alone. She denies any kind of chest pain shortness of breath abdominal pain nausea or vomiting. She has had frequent urination while in the ED. he was afebrile she was not in any pain. Is requesting something for the shaking. She also reports that she has not been able to sleep for a long time. She was previously on temazepam which he said is the only medication that works for her. She just wants to go to sleep. She was already taking HRT and other natural medications but says it is not quite working. Related Data Home Medications Medication Instructions Recorded Confirmed [employer] Magnesium PO 09/04/24 09/04/24 Previous Rx's Medication Instructions Recorded cholecalciferol (vitamin D3) 1,250 50,000 unit PO QWEEK #8 caps 02/11/19 mcg (50,000 unit) capsule epinephrine 0.3 mg/0.3 mL 0.3 mg (0.3 mL) IM Q5-15M PRN 09/26/20 injection, auto-injector (EpiPen anaphylaxis #2 ea 2-Stevan) capsaicin 0.025 % topical cream 1 applic topical BID PRN pain #25 12/10/22 grams lidocaine 5 % topical ointment 1 applic topical BID PRN pain 12/10/22 #35.44 grams clobetasol 0.05 % topical ointment 1 applic topical BEDTIME #45 grams 10/07/23 mirtazapine 15 mg tablet 7.5 mg (1/2 x 15 mg) PO .morning 12/23/23 #90 tabs progesterone micronized 100 mg 100 - 200 mg (1 - 2 x 100 mg) PO 09/04/24 capsule BEDTIME #180 caps cephalexin 500 mg capsule 500 mg PO BID 5 days #10 caps 09/10/24 temazepam 15 mg capsule 15 mg PO BEDTIME PRN sleep #7 caps 09/10/24 Allergies Allergy/AdvReac Type Severity Reaction Status Date / Time Tetanus Vaccines and Toxoid Allergy Intermediate Hives Verified 09/10/24 11:41 Penicillins Allergy Verified 09/10/24 11:41 Patient History Medical History (Updated 09/10/24 @ 15:18 by Francia Gonzales DO) White coat syndrome with hypertension Cellulitis and abscess of buttock Perirectal abscess (~06/2021) Hemorrhoid Dust allergy Osteoporosis Insomnia secondary to anxiety Hyperlipidemia Ovarian cyst Normal Papanicolaou smear Hyperlipidemia (08/22/12) Insomnia Surgical History Anesthesia Status post delivery (03/21/76) Status post tubal ligation (04/1986) Family History Mother Fibromyalgia Smoker PAD (peripheral artery disease) Stroke Parkinson's disease Brother Age: 59 Alcoholism Brother Age: 63 Hyperlipidemia Hypertension Smoker CAD (coronary artery disease) Father Small intestine cancer Grandfather Stroke Grandmother No problems noted. Grandmother Ovarian cancer Sister Brain tumor Social History household members: none Smoking Status: Never smoker alcohol intake: current (1 beer every 6 months) substance use type: marijuana (in the 70s) Smoking Status: Never smoker alcohol intake frequency: holidays/special occasions only Exam Initial Vital Signs Initial Vital Signs: Vital Signs Pulse Rate 92 H 09/10/24 11:27 Pulse Oximetry 98 09/10/24 11:27 GENERAL: Alert well-appearing thin 63-year-old and in no acute distress. HEENT: Head atraumatic,EOMI, pupils reactive, face symmetric, moist mucous membranes CARDIOVASCULAR: Regular rate and rhythm without murmurs, rubs or gallops. RESPIRATORY: Breath sounds equal bilaterally, no wheezes rales or rhonchi. ABDOMEN: Soft, nontender. Normoactive bowel sounds all 4 quadrants. No guarding or rebound. EXTREMITIES: Normal range of motion, no clubbing or edema. Neurovascularly intact NEUROLOGICAL: Alert and oriented x4.Normal gait and speech. Cranial nerves II through XII grossly intact. Resting tremor SKIN: Warm, dry, no laceration, no petechiae, no rashes or lesions. Course Orders Ordered: ED Orders 09/10/24 11:40 Complete Blood Count AUTO DIFF Stat Comprehensive Metabolic Panel Stat Ethanol (ETOH) Stat Lactate (Lactic Acid) Stat Procalcitonin Stat Troponin & CK Cardiac Panel Stat 09/10/24 11:42 XR chest 1V Stat EKG-12 Lead Stat 09/10/24 11:51 Urine Culture Stat Urine Drug Screen, Rapid Stat Urine Microscopic Stat 09/10/24 12:45 CT head/brain wo con Stat 09/10/24 14:34 Consult to Home Health Stat 09/10/24 14:41 Consult to SPECIAL NEEDS TUTOR - Supervisor Sulfuric Acid Plant Stat Discontinued Medications Diazepam (Diazepam 10 Mg/2 Ml Syringe) 2 mg IV NOW ONE Stop: 09/10/24 12:46 Last Admin: 09/10/24 12:51 Dose: 2 mg Documented By: Ceftriaxone Sodium 1,000 mg/ (Sodium Chloride) 100 mls @ 200 mls/hr IV NOW ONE Stop: 09/10/24 14:37 Last Infusion: 09/10/24 15:26 Dose: Infused Documented By: Admin: 09/10/24 14:43 Dose: 200 mls/hr Documented By: MARYLIN Ketorolac Tromethamine (Ketorolac 30 Mg/Ml Vial) 15 mg IV NOW ONE Stop: 09/10/24 15:19 Last Admin: 09/10/24 15:24 Dose: 15 mg Documented By: MARYLIN Vital Signs Vital signs: Vital Signs - 8 hr 09/10/24 11:27 09/10/24 11:29 09/10/24 11:29 Temperature Pulse Rate 92 H 90 Respiratory Rate Blood Pressure 214/96 H Pulse Oximetry 98 98 Oxygen Delivery Method 09/10/24 11:30 09/10/24 11:34 09/10/24 12:01 Temperature 98.5 F Pulse Rate 89 91 H 84 Respiratory Rate 17 17 Blood Pressure 214/96 H Pulse Oximetry 99 99 97 Oxygen Delivery Method Room Air 09/10/24 12:02 09/10/24 12:02 09/10/24 12:30 Temperature Pulse Rate 83 105 H Respiratory Rate 18 32 H Blood Pressure 174/77 H Pulse Oximetry 97 99 Oxygen Delivery Method 09/10/24 12:30 09/10/24 13:07 09/10/24 13:30 Temperature Pulse Rate 89 87 Respiratory Rate 14 23 Blood Pressure 197/86 H Pulse Oximetry 95 94 Oxygen Delivery Method Room Air 09/10/24 14:00 09/10/24 14:30 09/10/24 15:00 Temperature Pulse Rate 84 119 H 122 H Respiratory Rate 22 28 H 22 Blood Pressure 145/78 H Pulse Oximetry 97 98 Oxygen Delivery Method Room Air MDM - Altered Mental Status Lab Data 09/10/24 11:40 09/10/24 11:40 Labs: Lab Results 09/10/24 09/10/24 Range/Units 11:40 11:51 WBC 7.0 (4.5-11.0) X10^3/uL RBC 4.43 (4.0-5.2) X10^6/uL Hgb 13.6 (12.0-16.0) g/dL Hct 39.8 (36-46) % MCV 89.8 (80-100) fL MCH 30.7 (26-34) PG MCHC 34.2 (30-36) % RDW 13.4 (11.6-14.8) % Plt Count 331 (150-400) X10^3/uL Neut % (Auto) 77.9 H (50-75) % Lymph % (Auto) 12.7 L (25-40) % [place] % (Auto) 7.2 (3-14) % Eos % (Auto) 1.0 L (2-4) % Baso % (Auto) 1.2 (0-2) % Neut # (Auto) 5400 (4988-8626) /uL Lymph # (Auto) 900 L (0023-5799) /uL [place] # (Auto) 500 (0-900) /uL Eos # (Auto) 100 (0-450) /uL Baso # (Auto) 100 (0-100) /uL Sodium 137 (137-145) mmol/L Potassium 3.9 (3.4-5.1) mmol/L Chloride 105 (98-107) mmol/L Carbon Dioxide 25 (22-32) mmol/L BUN 14 (7-17) mg/dL Creatinine 0.79 (0.52-1.04) mg/dL Estimated GFR > 60 (>60) mL/min BUN/Creatinine Ratio 17.7 (6-22) Glucose 117 H (70-99) mg/dL Lactate 0.8 (0.7-2.1) mmol/L Calcium 9.5 (8.4-10.2) mg/dL Total Bilirubin 0.9 (0.2-1.3) mg/dL AST 31 (14-36) IU/L ALT 23 (<35) IU/L Alkaline Phosphatase 49 (38-126) U/L Total Creatine Kinase 99 (30-135) U/L Troponin I < 0.012 (0.01-0.034) ng/mL Total Protein 7.1 (6.3-8.2) g/dL Albumin 4.5 (3.5-5.0) g/dL Globulin 2.6 (1.7-4.1) g/dL Albumin/Globulin Ratio 1.7 (1.0-2.8) Procalcitonin < 0.030 (<0.5) ng/mL Urine RBC None seen (0-5/HPF) Urine WBC 5-10/hpf H (0-5/HPF) Ur Squamous Epith Cells None seen (0-5/HPF) Urine Bacteria Many (>30) H (None) Ur Culture Indicated? Specimen cultured Vol Urine Centrifuged 10ml (spun) U Opiates 300ng/mL cut Negative (Negative) Ur Oxycodone Screen Negative (Negative) Urine Methadone Screen Negative (Negative) Ur Barbiturates Screen Negative (Negative) U Tricyclic Antidepress Negative (Negative) Ur Phencyclidine Scrn Negative (Negative) Ur Amphetamines Screen Negative (Negative) U Methamphetamines Scrn Negative (Negative) Ur MDMA Scrn (Ecstasy) Negative (Negative) U Benzodiazepines Scrn Negative (Negative) Urine Cocaine Screen Negative (Negative) U Marijuana (THC) Screen Negative (Negative) Urine pH Normal (Normal) Urine Specific [place] Normal (Normal) Ethyl Alcohol < 10 ( - 10) mg/dL Ur Creatinine Normal (Normal) Urine Dip Bedside Urine Glucose Negative Bedside Urine Bilirubin - Negative Bedside Urine Ketone - Negative Urine Specific [place] 1.010 Bedside Urine Occult Blood - Negative Bedside Urine pH 7.5 Bedside Urine Protein +/- 15 Bedside Urine Urobilinogen - Negative Bedside Urine Nitrite - Negative Bedside Urine Leukocytes +++ [address] scan - head: Radiologist's Impression: PROCEDURE: CT HEAD/BRAIN WO CON INDICATIONS: recurrent falls TECHNIQUE: Noncontrast 4.5 mm thick angled axial sections acquired from the foramen magnum to the vertex, with coronal and sagittal reformats. For radiation dose reduction, the following was used: automated exposure control, adjustment of mA and/or kV according to patient size. COMPARISON: None. FINDINGS: Image quality: Diagnostic. CSF spaces: Basal cisterns are patent. No extra-axial fluid collections. Ventricles are normal in size and shape. Brain: No midline shift. No intracranial mass effect or hemorrhage. Murray-white matter interface is normal. Skull and face: Calvarium and visualized facial bones are intact, without suspicious lesions. Sinuses: Visualized sinuses and mastoids are clear. IMPRESSION: No acute intracranial pathology. Dictated by: America Davison M.D. on 09/10/2024 at 13:22 Chest x-ray: Radiologist's Impression: PROCEDURE: XR CHEST 1V INDICATIONS: altered mental status TECHNIQUE: One view of the chest was acquired. COMPARISON: [facility], , XR CHEST 1V, 02/09/2023, 9:37. FINDINGS: Surgical changes and devices: None. Lungs and pleura: Lungs are clear. No pleural effusions or pneumothorax. Mediastinum: Mediastinal contours appear normal. Heart size is normal. Bones and chest wall: No suspicious bony lesions. Overlying soft tissues appear unremarkable. IMPRESSION: No acute pulmonary process. Dictated by: America Davison M.D. on 09/10/2024 at 12:15 ECG Data Attestation: I personally reviewed and interpreted this ECG as follows: Interpretation: Significant artifact unreasonable MDM Narrative Medical decision making narrative: MDM CC: Shaking weakness Complicating co-morbidities: Chronic shaking anxiety neurologic decline Data collected from: Daughter patient Medical records reviewed: Previous PCP records Differential considered: Infection Exam documented above, pertinent findings include: Alert thin 63-year-old female who does have resting tremors no neurologic deficits abdomen is soft breath sounds are clear Lab Test results independently reviewed as above. Pertinent findings: WBC 7.0 hemoglobin 13.6 hematocrit 39.8 platelets 331 No electrolyte abnormality no GEETA glucose is 117 Lactate 0.8, procalcitonin negative Troponin negative Urinalysis positive for leukocytes and many bacteria no squamous cell Independently reviewed EKG as above lots of artifact unreadable due to shake Imaging studies independently reviewed: Head CT no acute intracranial hemorrhage Chest x-ray no acute cardiopulmonary process Treatments: Rocephin Valium and Toradol Re-evaluations: Patient reports that Valium helped briefly but she does feel little bit better Discussion:[Patient is a demetrio 63-year-old female who does have some neurologic declined she was got some ongoing tremors and insomnia. Requesting just her prior medications she was just help her sleep. She does also have UTI which might be making her symptoms worse. She was no evidence of sepsis no leukocytosis or lactic acidosis. Social work met with her given resources sounds like living independently time maybe limited but feels comfortable going home today. Discharge Plan Departure Patient Disposition: Home Clinical Impression: Acute UTI, Insomnia Instructions: DI for Urinary Tract Infection (UTI) Activity Restrictions/Additional Instructions: *You have been diagnosed with a UTI insomnia *What to do: At this time we will restart you on your temazepam to see if it helps with your sleeping *Continue to take medications as directed Temazepam 15 mg at night for insomnia Keflex 500 mg twice a day for 5 days *Follow up with your primary care provider in 2-3 days or call [phone] *Return to ER if you should have increasing confusion weakness fall or any new, worsening or concerning symptoms Prescriptions: New cephalexin 500 mg capsule 500 mg PO BID 5 Days Qty: 10 0RF temazepam 15 mg capsule 15 mg PO BEDTIME PRN (Reason: sleep) Qty: 7 0RF No Action cholecalciferol (vitamin D3) 50,000 unit capsule 50,000 unit PO QWEEK Qty: 8 0RF mirtazapine 15 mg tablet 7.5 mg PO .morning Qty: 90 1RF Rx Instructions: Move mirtazepine 7.5 (1/2 tab) to the morning and see if you can get the appetite benefit without getting too tired. clobetasol 0.05 % ointment 1 applic topical BEDTIME Qty: 45 3RF Rx Instructions: use every other night for 1 week, then use twice per week for maintenance therapy progesterone micronized 100 mg capsule 100 - 200 mg PO BEDTIME Qty: 180 0RF Rx Instructions: ok to take a second dose if you are up in the middle of the night. [employer] Magnesium PO lidocaine 5 % ointment 1 applic topical BID PRN (Reason: pain) Qty: 35.44 0RF capsaicin 0.025 % cream 1 applic topical BID PRN (Reason: pain) Qty: 25 0RF Rx Instructions: do not wash area for at least 30 min after application epinephrine [EpiPen 2-Stevan] 0.3 mg/0.3 mL auto-injector 0.3 mg IM Q5-15M PRN (Reason: anaphylaxis) Qty: 2 0RF Rx Instructions: do not exceed 3 doses per episode Referrals: Aleyda Ulloa DO [Primary Care Provider] - Stand Alone Forms: Patient Portal/API/Survey
[2024-09-10 12:16] LABS: Procalcitonin < 0.030 ng/mL (<0.5)
[2024-09-10 12:31] LABS: Urine Volume 10mL (spun)
[2024-09-10 12:33] LABS: Bacteria Urine Many (>30); Culture Indicated Urine Specimen Cultured; RBC Urine None Seen (0-5/HPF); Squamous Epithelial Cell Urine None Seen (0-5/HPF); WBC Urine 5-10/HPF (0-5/HPF)
--- NOTE | 2024-09-10 12:45 | DI.CT.S_ITS ---
PROCEDURE: CT HEAD/BRAIN WO CON INDICATIONS: recurrent falls TECHNIQUE: Noncontrast 4.5 mm thick angled axial sections acquired from the foramen magnum to the vertex, with coronal and sagittal reformats. For radiation dose reduction, the following was used: automated exposure control, adjustment of mA and/or kV according to patient size. COMPARISON: None. FINDINGS: Image quality: Diagnostic. CSF spaces: Basal cisterns are patent. No extra-axial fluid collections. Ventricles are normal in size and shape. Brain: No midline shift. No intracranial mass effect or hemorrhage. Murray-white matter interface is normal. Skull and face: Calvarium and visualized facial bones are intact, without suspicious lesions. Sinuses: Visualized sinuses and mastoids are clear. IMPRESSION: No acute intracranial pathology. Dictated by: America Davison M.D. on 09/10/2024 at 13:22 Approved by: America Davison M.D. on 09/10/2024 at 13:22
[2024-09-10] MEDS: diazePAM 10 MG/2 ML SYRINGE 2 MG IV (12:51)
[2024-09-10] MEDS: cefTRIAXone 1,000 MG in SODIUM CHLORIDE 0.9% 100 ML 200 MG IV (14:43)
--- NOTE | 2024-09-10 15:00 | CM.DANOTE ---
ED SECURITY POLICE Assessment Note: Pt is a 63yo female, resident of [place], is seen in the ED for tremors and recurrent falls. Pt lives in a house alone, her daughter, Andreina, lives in [place] but plans to be with pt in the home for the next few weeks. Pt's Primary Care Provider is Dr. Aleyda Ulloa and insurance is Medicare and [email or web address]. Reviewed chart and discussed with multidisciplinary team pt's medical status and initial discharge needs. SECURITY POLICE consulted for possible home health and community referrals. SECURITY POLICE entered room to meet with patient, introduced self and role. Present in the room is pt's daughter, Andreina. Pt confirmed living situation and discussed difficulty in completing ADLs/IADLs recently due to tremors and weakness. Patient has a MRI scheduled and a follow up with her PCP this week to find reason for tremors. ED SECURITY POLICE discussed hx of community services, pt denied any recent HH or SNF services. Pt agreeable to home health referral for RN, HH Aide, PT, OT, and SECURITY POLICE to assist with safety assessments and advance directive planning. SECURITY POLICE calls [facility], spoke with Intake Manish, provided initial referral. It is reported start of care can be as soon as 09/12/24 in [place]. SECURITY POLICE faxed initial clinicals and Provider signed [id number] Orders. Pt requested referral to [facility]. SECURITY POLICE left a voice message with Intake at [facility], requesting a call back to relay all pt information. SECURITY POLICE provided contact information for [facility], [facility] for [facility] and list of DME Providers in [facility] for pt reference. SECURITY POLICE reviews this with ED provider Dr. Gonzales who indicates agreement and understanding; signed orders for home health. Plan: Pt to discharge home with home health referral ([facility]), [facility] referral. Patient to follow up with MRI on 09/11 and PCP appt on 09/18. CARMITA Long Discharge Planning/Care Management CM Discharge Assessment Start: 09/10/24 13:58 Freq: Status: Active Protocol: Document 09/10/24 13:58 MW (Rec: 09/10/24 13:59 MW [id number]) Discharge Planning Assessment Advance Directives? No Document 09/10/24 14:57 MW (Rec: 09/10/24 15:00 MW [id number]) Discharge Planning Assessment Assigned Log Check Scaler MINDA Turpin DPOA/Assigned Designee Name Andreina Lao, daughter Contact Information [phone] Advance Directives? No History Provided By Patient,Family Member,Medical Record Has Patient been admitted in last 30 No days? Prior Living Arrangements House Household Members none Type of transporation used prior to Drives own vehicle admit Independent with ADL's No: Moderately independent Is patient alert and oriented? Yes Needs Assistance With Grooming,Meal Prep,Toileting, Home Chores / Shopping Comment Has access to FWW, Wheelchair, cane from brother who lives in [place] Patient/Family Preference Home with Home Health Barriers to Discharge No Discharge Plan Home with Home Health Referrals Initiated Home Health Additional Comment [facility] If patient plan is home with home health Yes : Has signed face to face form been completed? If patient plan is SNF: Has PASSR been No completed? Medicare Choice List Provided Yes Medicare choice list reviewed on patient,family electronic tablet with SNF/HH Preference [facility] Contact Name/Phone [facility] (ph[facility] #3) Has Agency SNF been contacted No Review Status In Process Please Provide Date Initial DC 09/10/24 Assessment Was Performed Next Review Type Continued Stay Review
[2024-09-10] MEDS: KETOROLAC 30 MG/ML VIAL 15 MG IV (15:24)
== END 2024-09-10 15:50 | disposition home or self-care (01) ==
PROVIDERS: Emergency Provider Emergency Medicine; PCP Family Medicine
DX: N39.0 Urinary tract infection, site not specified (principal); G47.00 Insomnia, unspecified
CPT/HCPCS: 36415; 70450; 71045; 80053; 80305; 80320; 81003; 81015; 82550; 83605; 84145; 84484; 85025; 87077; 87086; 87186; 93005; 93010; 96365; 96375; 99284; J0696; J1885; J3360

== ENCOUNTER → 2024-09-11 11:11 | Outpatient (CLI) | payer MEDICARE, OTHER, SELFPAY ==
--- NOTE | 2024-09-11 11:13 | DI.MRI.S_ITS ---
PROCEDURE: MR HEAD/BRAIN WO/W CON INDICATIONS: TREMORS, COGNITIVE CHANGES, RECURRENT FALLS TECHNIQUE: Noncontrast axial T1 spin echo, axial T2 fast spin echo, sagittal and axial FLAIR, coronal T2 fast spin echo, axial gradient echo, axial diffusion and ADC through the brain. After the administration of contrast, axial and coronal and sagittal T1 spin echo with fat saturation through the brain. COMPARISON: [facility], CT, CT HEAD/BRAIN WO CON, 09/10/2024, 13:08. FINDINGS: Image quality: This examination is limited by involuntary motion artifact. CSF spaces: Basal cisterns are patent. No extra-axial fluid collections. Ventricles are normal in size and shape. Brain: No midline shift. No intracranial bleeds or masses. No abnormal intracranial enhancement. There is cerebral volume loss for age. There is periventricular white matter chronic small vessel ischemic change. The brainstem appears normal. Diffusion-weighted images demonstrate no acute infarct. Remote lacunar infarcts can be seen within the basal ganglia. Normal intravascular flow voids are present. Skull and face: Calvarial marrow is normal in signal. Orbits appear normal. Sinuses: Sinuses and mastoids appear clear. IMPRESSION: No imaging explanation is found for this patient's presenting symptoms. Remote lacunar infarcts can be seen within the basal ganglia. No masses or abnormal enhancement can be seen. Dictated by: Jaylen Ramirez M.D. on 09/11/2024 at 15:09 Approved by: Jaylen Ramirez M.D. on 09/11/2024 at 15:11
== END ==
LOC: MRI 11:12
PROVIDERS: PCP Family Medicine; Referring Provider Family Medicine; Visit Provider Family Medicine
DX: I63.81 Other cerebral infarction due to occlusion or stenosis of small artery (principal); R25.1 Tremor, unspecified; R41.89 Other symptoms and signs involving cognitive functions and awareness; R29.6 Repeated falls
CPT/HCPCS: 70553; A9579

== ENCOUNTER → 2024-09-19 12:49 | Outpatient (CLI) | payer MEDICARE, OTHER, SELFPAY ==
[2024-09-19 13:17] LABS: Appearance Urine UA CLEAR; Bilirubin Urine UA NEGATIVE (NEGATIVE); Color Urine UA YELLOW; Glucose Urine UA NEGATIVE (Negative); Ketones Urine UA NEGATIVE (NEGATIVE); Leukocyte Esterase Urine UA 1+ (NEGATIVE); Nitrite Urine UA NEGATIVE (Negative); Occult Blood Urine UA NEGATIVE (Negative); Protein Urine UA NEGATIVE (Negative); Specific Gravity Urine UA 1.025 (1.000-1.035); Urobilinogen Urine UA 0.2 E.U./dL (0.2)
[2024-09-19 13:19] LABS: pH Urine UA 5.5 (4.5-8.0)
[2024-09-19 13:20] LABS: Urine Volume 10mL (spun)
[2024-09-19 13:22] LABS: Bacteria Urine None Seen; RBC Urine None Seen (0-5/HPF); Squamous Epithelial Cell Urine 5-10 /HPF (0-5/HPF); WBC Urine 5-10/HPF (0-5/HPF)
[2024-09-19 13:23] LABS: Culture Indicated Urine Specimen Cultured
== END ==
PROVIDERS: PCP Family Medicine; Referring Provider Family Medicine; Visit Provider Family Medicine
DX: N39.0 Urinary tract infection, site not specified (principal)
CPT/HCPCS: 81001; 87077; 87086; 87186

== ENCOUNTER → 2024-09-26 12:23 | Outpatient (CLI) | payer MEDICARE, OTHER, SELFPAY ==
[2024-09-26 12:43] LABS: Appearance Urine UA CLEAR; Bilirubin Urine UA NEGATIVE (NEGATIVE); Color Urine UA YELLOW; Glucose Urine UA NEGATIVE (Negative); Ketones Urine UA 1+ (NEGATIVE); Leukocyte Esterase Urine UA NEGATIVE (NEGATIVE); Nitrite Urine UA NEGATIVE (Negative); Occult Blood Urine UA NEGATIVE (Negative); Protein Urine UA NEGATIVE (Negative); Specific Gravity Urine UA <=1.005 (1.000-1.035); Urobilinogen Urine UA 0.2 E.U./dL (0.2)
[2024-09-26 12:49] LABS: Bacteria Urine None Seen; Culture Indicated Urine Cult Not Indicated; RBC Urine None Seen (0-5/HPF); Squamous Epithelial Cell Urine 0-1 /HPF (0-5/HPF); Urine Volume 10mL (spun); WBC Urine None Seen (0-5/HPF)
== END ==
PROVIDERS: PCP Family Medicine; Referring Provider Family Medicine; Visit Provider Family Medicine
DX: N39.0 Urinary tract infection, site not specified (principal)
CPT/HCPCS: 81001

== ENCOUNTER 2024-10-19 10:11 | Emergency (ER) | payer MEDICARE, OTHER, SELFPAY ==
[2024-10-19] VITALS (11 sets, daily range): BP systolic 141–186; BP diastolic 70–89; PULSE 79–112; RESP 13–22; TEMP 37; O2SAT 93–99; BMI 20.9
--- NOTE | 2024-10-19 10:21 | EKG_ITS ---
[address] [address] Test Date: 2024-10-19 Pat Name: Stacey Welsh Department: Room: Gender: Female Gear Cutter: KARLI : 1960 Requested By: Order Number: [id number] Reading MD: Win Hernandez MD Measurements Intervals [place] Rate: 80 P: 73 SD: 118 QRS: 38 QRSD: 82 T: 33 QT: 376 QTc: 433 Interpretive Statements Normal sinus rhythm Electronically Signed On 10-19-2024 11:08:29 PDT by Win Hernandez MD
--- NOTE | 2024-10-19 10:24 | DI.RAD.S_ITS ---
PROCEDURE: XR CHEST 1V INDICATIONS: Chest Pain TECHNIQUE: One view of the chest was acquired. COMPARISON: [facility], CR, XR CHEST 1V, 09/10/2024, 11:37. FINDINGS: Surgical changes and devices: None. Lungs and pleura: Lungs are clear. No pleural effusions or pneumothorax. Mediastinum: Mediastinal contours appear normal. Heart size is normal. Bones and chest wall: No suspicious bony lesions. Overlying soft tissues appear unremarkable. IMPRESSION: No acute pulmonary process. Dictated by: America Davison M.D. on 10/19/2024 at 10:52 Approved by: America Davison M.D. on 10/19/2024 at 10:53
[2024-10-19] MEDS: ASPIRIN 81 MG CHEW TAB 324 MG PO (10:28)
--- NOTE | 2024-10-19 10:28 | ED_ITS ---
HPI - Chest Pain General Chief Complaint: Chest Pain Stated Complaint: Chest pain all night long Time Seen by Provider: 10/19/24 10:15 Source: patient Mode of arrival: Wheelchair Limitations: no limitations History of Present Illness HPI narrative: 64-year-old female history of hypertension, shingles, posterior herpetic neuralgia, intermittent lifelong insomnia history of Parkinson's presents with midsternal chest pain started last night at 1:00 a.m. nonradiating feels like a choking sensation is how she describes it and shortness of breath but that is her baseline given her anxiety history per patient but no worsening shortness of breath. Patient denies fever chills cough weight gain leg pain leg swelling. She did not take anything for but could not sleep. Patient is pain-free at this time. What is stated 14 point review of system is negative Related Data Home Medications ?Medication ?Instructions ?Recorded ?Confirmed [employer] Magnesium PO 09/04/24 10/09/24 Previous Rx's ?Medication ?Instructions ?Recorded cholecalciferol (vitamin D3) 1,250 50,000 unit PO QWEE K #8 caps 02/11/19 mcg (50,000 unit) capsule epinephrine 0.3 mg/0.3 mL 0.3 mg (0.3 mL) IM Q5-15M MA N 09/26/20 injection, auto-injector (EpiPen anaphylaxis #2 ea 2-Stevan) capsaicin 0.025 % topical cream 1 applic topical BID P RN pain #25 12/10/22 grams lidocaine 5 % topical ointment 1 applic topical BID MA N pain 12/10/22 #35.44 grams clobetasol 0.05 % topical ointment 1 applic topical BE DTIME #45 grams 10/07/23 estradiol 0.01% (0.1 mg/gram) 1 g vaginal 2XW PRN vulv ovaginal 09/19/24 vaginal cream irritation #42.5 grams temazepam 15 mg capsule 15 mg PO BEDTIME PRN sleep # 14 caps 09/19/24 carbidopa 25 mg-levodopa 100 mg 1 tab PO 3XD #270 tabs 10/09/24 tablet progesterone micronized 100 mg 100 - 200 mg (1 - 2 x 1 00 mg) PO 10/09/24 capsule BEDTIME #90 caps Allergies Allergy/AdvReac Type Severity Reaction Status Date / Time Tetanus Vaccines and Toxoid Allergy Intermediate Hives Verified 10/19/24 10:24 Penicillins Allergy Verified 10/19/24 10:24 Review of Systems Review of Systems ROS Unobtainable: All systems reviewed & are unremarkable except as noted in HPI and below Patient History Medical History (Updated 10/19/24 @ 13:35 by Win Cortez DO) White coat syndrome with hypertension Cellulitis and abscess of buttock Perirectal abscess (~06/2021) Hemorrhoid Dust allergy Osteoporosis Insomnia secondary to anxiety Hyperlipidemia Ovarian cyst Normal Papanicolaou smear Hyperlipidemia (08/22/12) Insomnia Surgical History Anesthesia Status post delivery (03/21/76) Status post tubal ligation (04/1986) Family History Mother Fibromyalgia Smoker PAD (peripheral artery disease) Stroke Parkinson's disease Brother Age: 59 Alcoholism Brother Age: 63 Hyperlipidemia Hypertension Smoker CAD (coronary artery disease) Father Small intestine cancer Grandfather Stroke Grandmother No problems noted. Grandmother Ovarian cancer Sister Brain tumor Social History household members: none Smoking Status: Unknown if ever smoked alcohol intake: current (1 beer every 6 months) substance use type: marijuana (in the 70s) Smoking Status: Unknown if ever smoked alcohol intake frequency: holidays/special occasions only Exam Narrative Exam Narrative: GENERAL: [64] year old patient appears stated age. Well-developed patient, in mild distress. HEAD: Atraumatic. Normocephalic. EYES: Pupils equal round and reactive. Extraocular motions intact. No scleral icterus. No injection or drainage. ENT: Nose without bleeding, purulent drainage. Throat without erythema, tonsillar hypertrophy or exudate. Airway patent. NECK: Trachea midline. Non tender CARDIOVASCULAR: Regular rate and rhythm without murmurs, gallops, or rubs. RESPIRATORY: Clear to auscultation. Breath sounds equal bilaterally. No wheezes, rales, or rhonchi. GASTROINTESTINAL: Abdomen soft, non-tender, nondistended. EXTREMITIES: No edema or joint tenderness. BACK: Nontender without deformity or crepitance. No flank tenderness. NEURO: AOx3. GCS of 15 nonfocal neuro exam SKIN: No rash or erythema of visible areas Initial Vital Signs Initial Vital Signs: Vital Signs Pulse Rate 85 10/19/24 10:17 Blood Pressure 186/89 H 10/19/24 10:17 Pulse Oximetry 98 10/19/24 10:17 Scores HEART Score Heart Score history: Slightly Suspicious Heart Score EKG: Normal Heart Score Age: > or = 65 years old Heart Score risk factors: 1-2 risk factors Heart Score troponin: < or = to normal limit Heart Score Total: 3 Course Orders Ordered: ED Orders 10/19/24 10:24 XR chest 1V Stat EKG-12 Lead Stat 10/19/24 10:33 Complete Blood Count AUTO DIFF Stat Comprehensive Metabolic Panel Stat Lipase Stat Magnesium Stat NT-proBNP (BNP-Adult 18+) Stat PTT Partial Thromboplastin Kenny Stat Prothrombin Time INR Stat Troponin & CK Cardiac Panel Stat 10/19/24 12:40 Troponin I Stat Discontinued Medications Aspirin (Aspirin 81 Mg Chew Tab) 324 mg PO NOW ONE Stop: 10/19/24 10:25 Last Admin: 10/19/24 10:28 Dose: 324 mg Documented By: JOSE Vital Signs Vital signs: Vital Signs - 8 hr 10/19/24 10:17 10/19/24 10:17 10/19/24 10:24 Temperature 98.6 F Pulse Rate 85 88 Respiratory Rate 13 Blood Pressure 186/89 H 186/89 H Pulse Oximetry 98 97 Oxygen Delivery Method Room Air 10/19/24 10:30 10/19/24 10:30 10/19/24 11:00 Temperature Pulse Rate 79 Respiratory Rate 19 Blood Pressure 174/71 H 147/73 H Pulse Oximetry 99 Oxygen Delivery Method 10/19/24 11:00 10/19/24 11:30 10/19/24 11:30 Temperature Pulse Rate 80 85 Respiratory Rate 20 Blood Pressure 169/78 H Pulse Oximetry 98 99 Oxygen Delivery Method MDM - Chest Pain Lab Data 10/19/24 10:33 10/19/24 10:33 Labs: Lab Results 10/19/24 10/19/24 Range/Units 10:33 12:40 WBC 6.8 (4.5-11.0) X10^3/uL RBC 4.64 (4.0-5.2) X10^6/uL Hgb 14.0 (12.0-16.0) g/dL Hct 42.1 (36-46) % MCV 90.7 (80-100) fL MCH 30.1 (26-34) PG MCHC 33.2 (30-36) % RDW 13.7 (11.6-14.8) % Plt Count 318 (150-400) X10^3/uL Neut % (Auto) 78.1 H (50-75) % Lymph % (Auto) 14.1 L (25-40) % Bennett % (Auto) 6.6 (3-14) % Eos % (Auto) 0.4 L (2-4) % Baso % (Auto) 0.8 (0-2) % Neut # (Auto) 5300 (1752-2908) /uL Lymph # (Auto) 1000 L (7063-2954) /uL Bennett # (Auto) 400 (0-900) /uL Eos # (Auto) 0 (0-450) /uL Baso # (Auto) 100 (0-100) /uL PT 11.6 (9.4-12.5) SECONDS INR 1.0 (0.9-1.3) APTT 33 (25.1-36.5) SECONDS Sodium 137 (137-145) mmol/L Potassium 3.6 (3.4-5.1) mmol/L Chloride 103 (98-107) mmol/L Carbon Dioxide 25 (22-32) mmol/L BUN 16 (7-17) mg/dL Creatinine 0.66 (0.52-1.04) mg/dL Estimated GFR > 60 (>60) mL/min BUN/Creatinine Ratio 24.2 H (6-22) Glucose 106 H (70-99) mg/dL Calcium 9.3 (8.4-10.2) mg/dL Magnesium 2.3 (1.6-2.3) mg/dL Total Bilirubin 1.4 H (0.2-1.3) mg/dL AST 27 (14-36) IU/L ALT 8 (<35) IU/L Alkaline Phosphatase 42 (38-126) U/L Total Creatine Kinase 41 (30-135) U/L Troponin I < 0.012 < 0.012 (0.01-0.034) ng/mL NT-Pro-B Natriuret Pep 48 (<125) pg/mL Total Protein 7.0 (6.3-8.2) g/dL Albumin 4.4 (3.5-5.0) g/dL Globulin 2.6 (1.7-4.1) g/dL Albumin/Globulin Ratio 1.7 (1.0-2.8) Lipase 113 (23-300) U/L Urine Dip Bedside Urine Glucose Negative Bedside Urine Bilirubin - Negative Bedside Urine Ketone +/- 5 Urine Specific [place] 1.015 Bedside Urine Occult Blood - Negative Bedside Urine pH 6.0 Bedside Urine Protein - Negative Bedside Urine Urobilinogen - Negative Bedside Urine Nitrite - Negative Bedside Urine Leukocytes - Negative Esterase ECG Data Interpretation: NSR HR 80 MA 118 QRS [address]-t wave change Unchanged from 09/10/24 MDM Narrative Medical decision making narrative: All lab work, vital signs, nurse triage note, medication list, previous ER visits, and all imaging studies reviewed. EKG showed normal sinus rhythm heart rate [address] T wave changes. Heart score 3. Two sets of troponin are negative patient is asymptomatic at this time with no chest pain. Chest x-ray showed no acute process. Differential diagnosis includes STEMI NSTEMI unstable angina anxiety GERD. Follow up with PCP next week for follow up. Return with new or worsening symptoms Discharge Plan Departure Patient Disposition: Home Clinical Impression: Chest pain Qualifiers: Chest pain type: chest pain on breathing Qualified Code(s): R07.1 - Chest pain on breathing Instructions: DI for Chest Pain Activity Restrictions/Additional Instructions: Return with new or worsening symptoms. Follow up with PCP next week for follow up care. Prescriptions: No Action cholecalciferol (vitamin D3) 50,000 unit capsule 50,000 unit PO QWEEK Qty: 8 0RF clobetasol 0.05 % ointment 1 applic topical BEDTIME Qty: 45 3RF Rx Instructions: use every other night for 1 week, then use twice per week for maintenance therapy [employer] Magnesium PO temazepam 15 mg capsule 15 mg PO BEDTIME PRN (Reason: sleep) Qty: 14 0RF estradiol 0.01 % (0.1 mg/gram) cream 1 g vaginal 2XW PRN (Reason: vulvovaginal irritation) Qty: 42.5 0RF carbidopa-levodopa 25-100 mg tablet 1 tab PO 3XD Qty: 270 1RF progesterone micronized 100 mg capsule 100 - 200 mg PO BEDTIME Qty: 90 1RF lidocaine 5 % ointment 1 applic topical BID PRN (Reason: pain) Qty: 35.44 0RF capsaicin 0.025 % cream 1 applic topical BID PRN (Reason: pain) Qty: 25 0RF Rx Instructions: do not wash area for at least 30 min after application epinephrine [EpiPen 2-Stevan] 0.3 mg/0.3 mL auto-injector 0.3 mg IM Q5-15M PRN (Reason: anaphylaxis) Qty: 2 0RF Rx Instructions: do not exceed 3 doses per episode Referrals: Aleyda Ulloa DO [Primary Care Provider, Medical] Stand Alone Forms: Patient Portal/API
[2024-10-19 10:45] LABS: Add Manual Diff / Slide Review NO; Basophils Absolute Auto 100 /uL (0-100); Basophils Percent Auto 0.8 % (0-2); Eosinophils Absolute Auto 0 /uL (0-450); Eosinophils Percent Auto 0.4 % (2-4); Hematocrit 42.1 % (36-46); Lymphocytes Absolute Auto 1000 /uL (1100-4500); Lymphocytes Percent Auto 14.1 % (25-40); Mean Corpuscular HGB Conc 33.2 % (30-36); Mean Corpuscular Hemoglobin 30.1 PG (26-34); Mean Corpuscular Volume 90.7 fL (80-100); Monocytes Absolute Auto 400 /uL (0-900); Monocytes Percent Auto 6.6 % (3-14); Neutrophils Absolute Auto 5300 /uL (1500-7000); Neutrophils Percent Auto 78.1 % (50-75); Platelet Count 318 X10^3/uL (150-400); Red Blood Cell Count 4.64 X10^6/uL (4.0-5.2); Red Cell Distribution Width 13.7 % (11.6-14.8); White Blood Cell Count 6.8 X10^3/uL (4.5-11.0)
[2024-10-19 10:50] LABS: Prothrombin Time 11.6 SECONDS (9.4-12.5)
[2024-10-19 10:53] LABS: PTT Partial Thromboplastin Tim 33 SECONDS (25.1-36.5)
[2024-10-19 10:55] LABS: Alanine Aminotransferase 8 IU/L (<35); Albumin 4.4 g/dL (3.5-5.0); Albumin Globulin Ratio 1.7 (1.0-2.8); Alkaline Phosphatase 42 U/L (38-126); Aspartate Aminotransferase 27 IU/L (14-36); BUN Creatinine Ratio 24.2 (6-22); Bilirubin Total 1.4 mg/dL (0.2-1.3); Blood Urea Nitrogen 16 mg/dL (7-17); Calcium 9.3 mg/dL (8.4-10.2); Carbon Dioxide 25 mmol/L (22-32); Chloride 103 mmol/L (98-107); Creatine Kinase 41 U/L (30-135); Estimated Glomerular Filt Rate > 60 mL/min (>60); Globulin 2.6 g/dL (1.7-4.1); Glucose 106 mg/dL (70-99); HEMOLYSIS 39 (0-50); Lipase 113 U/L (23-300); Magnesium 2.3 mg/dL (1.6-2.3); Potassium 3.6 mmol/L (3.4-5.1); Sodium 137 mmol/L (137-145)
[2024-10-19 11:06] LABS: NT-proBNP (BNP-Adult 18+) 48 pg/mL (<125); Troponin I < 0.012 ng/mL (0.01-0.034)
--- NOTE | 2024-10-19 11:21 | PC.NURSE ---
patient states she was pacing over night with the chest pressure, states once family arrived this am the pressure resolved, I wonder if it was anxiety
--- NOTE | 2024-10-19 11:49 | PC.NURSE ---
Addendum entered by Kenzie Keller R.N. 10/19/24 11:59: patient does reports she did not eat breakfast as usual today. Original Note: patient reports new indigestion, will notify dr Cortez.
--- NOTE | 2024-10-19 13:05 | PC.NURSE ---
patient states right lower back pain, feels like she needs up, assisted to ambulated about 10 steps around bed, patient stated she felt better, in bed for about 20 min and states the pain is back and she wants up. assisted patient to a chair for position change and she states thats better but needs to use the restroom.
[2024-10-19 13:12] LABS: Troponin I < 0.012 ng/mL (0.01-0.034)
[2024-10-19 15:16] LABS: Appearance Urine UA CLEAR; Bilirubin Urine UA NEGATIVE (NEGATIVE); Color Urine UA YELLOW; Glucose Urine UA NEGATIVE (Negative); Ketones Urine UA 1+ (NEGATIVE); Leukocyte Esterase Urine UA NEGATIVE (NEGATIVE); Nitrite Urine UA NEGATIVE (Negative); Occult Blood Urine UA NEGATIVE (Negative); Protein Urine UA NEGATIVE (Negative); Urobilinogen Urine UA 0.2 E.U./dL (0.2)
[2024-10-19 15:19] LABS: pH Urine UA 6.5 (4.5-8.0)
[2024-10-19 15:22] LABS: Bacteria Urine Occasional (0-1); Culture Indicated Urine Cult Not Indicated; Mucus Urine 1+ (Negative); RBC Urine 0-1/HPF (0-5/HPF); Squamous Epithelial Cell Urine 0-1 /HPF (0-5/HPF); Urine Volume 10mL (spun); WBC Urine None Seen (0-5/HPF)
== END 2024-10-19 13:55 | disposition home or self-care (01) ==
PROVIDERS: Emergency Provider Family Medicine; PCP Family Medicine
DX: R07.1 Chest pain on breathing (principal)
CPT/HCPCS: 36415; 71045; 80053; 81001; 81003; 82550; 83690; 83735; 83880; 84484; 85025; 85610; 85730; 93005; 93010; 99284

== ENCOUNTER → 2024-11-10 10:49 | Outpatient (CLI) | payer MEDICARE, OTHER, SELFPAY ==
[2024-11-10 12:56] LABS: Add Manual Diff / Slide Review NO; Hematocrit 38.5 % (36-46); Hemoglobin 13.0 g/dL (12.0-16.0); Lymphocytes Absolute Auto 900 /uL (1100-4500); Mean Corpuscular HGB Conc 33.9 % (30-36); Mean Corpuscular Hemoglobin 30.8 PG (26-34); Mean Corpuscular Volume 90.7 fL (80-100); Platelet Count 305 X10^3/uL (150-400)
[2024-11-10 13:24] LABS: Alanine Aminotransferase 17 IU/L (<35); Albumin 4.2 g/dL (3.5-5.0); Albumin Globulin Ratio 1.7 (1.0-2.8); Alkaline Phosphatase 47 U/L (38-126); Blood Urea Nitrogen 14 mg/dL (7-17); Calcium 9.7 mg/dL (8.4-10.2); Carbon Dioxide 26 mmol/L (22-32); Chloride 103 mmol/L (98-107); Estimated Glomerular Filt Rate > 60 mL/min (>60); Globulin 2.5 g/dL (1.7-4.1); Glucose 100 mg/dL (70-99); HEMOLYSIS < 15 (0-50); Potassium 4.1 mmol/L (3.4-5.1); Sodium 135 mmol/L (137-145); Total Protein 6.7 g/dL (6.3-8.2)
[2024-11-10 13:29] LABS: Prealbumin 22.9 mg/dL (17.6-36.0)
[2024-11-10 14:12] LABS: Vitamin B12 620 pg/mL (239-931)
[2024-11-13 14:12] LABS: Deamidated Gliadin Ab IgA 4 units (0-19); Deamidated Gliadin Ab IgG 1 units (0-19); Immunoglobulin A,Qn 232 mg/dL (87-352)
[2024-11-13 22:07] LABS: Metanephrine,Plasma 32.8 pg/mL (0.0-88.0)
== END ==
PROVIDERS: PCP Family Medicine; Referring Provider Family Medicine
DX: G25.2 Other specified forms of tremor (principal); R26.9 Unspecified abnormalities of gait and mobility; R41.3 Other amnesia
CPT/HCPCS: 80053; 82533; 82607; 82784; 83516; 83520; 83835; 84134; 84425; 84446; 85025; 86038; 86140

== ENCOUNTER 2024-12-09 07:27 | Emergency (ER) | payer MEDICARE, OTHER, SELFPAY ==
[2024-12-09] VITALS (9 sets, daily range): BP systolic 137–197; BP diastolic 61–96; PULSE 83–93; RESP 14–16; TEMP 36.4; O2SAT 94–99; BMI 19.8
--- NOTE | 2024-12-09 07:33 | ED.GENADULT ---
HPI - General Adult General Chief complaint: Skin/Abscess/Foreign Body Stated complaint: Trouble Swallowing Time Seen by Provider: 12/09/24 07:30 History of Present Illness HPI narrative: 64-year-old woman with significant anxiety, parkinsonian features, recently started on carbidopa levodopa 25-100 3 to 4 times a day, last night did take her medication. She was so anxious all night that she was having difficulty swallowing. She describes this as just behind the sternal notch. She is able to manage secretions. This was not associated with eating or taking pills to suggest an obstruction. Medics describe severe anxiety and overall fear on arrival. She is able to speak in full sentences, protecting her airway, no signs of respiratory distress, she is quivering with anxiety. She is not describing recent fevers or chills Related Data Home Medications ?Medication ?Instructions ?Recorded ?Confirmed [employer] Magnesium PO 09/04/24 10/09/24 Previous Rx's ?Medication ?Instructions ?Recorded cholecalciferol (vitamin D3) 1,250 50,000 unit PO QWEEK #8 caps 02/11/19 mcg (50,000 unit) capsule epinephrine 0.3 mg/0.3 mL 0.3 mg (0.3 mL) IM Q5-15M PRN 09/26/20 injection, auto-injector (EpiPen anaphylaxis #2 ea 2-Stevan) lidocaine 5 % topical ointment 1 applic topical BID PRN pain 12/10/22 #35.44 grams temazepam 15 mg capsule 15 mg PO BEDTIME PRN sleep #14 caps 09/19/24 ondansetron 4 mg disintegrating 4 mg PO Q8H nausea #14 tabs 11/12/24 tablet carbidopa ER 23.75 mg-levodopa 95 1 cap PO TID #90 caps 11/13/24 mg capsule,extended release progesterone micronized 100 mg 100 - 200 mg (1 - 2 x 100 mg) PO 11/19/24 capsule BEDTIME #90 caps capsaicin 0.025 % topical cream 1 applic topical BID PRN pain #25 11/22/24 grams estradiol 0.01% (0.1 mg/gram) 1 g vaginal 2XW PRN vulvovaginal 11/22/24 vaginal cream irritation #42.5 grams clobetasol 0.05 % topical ointment See Rx Instructions topical 11/28/24 .COMPLEX #45 grams diazepam 5 mg tablet 5 mg PO BID PRN anxiety #14 tabs 12/09/24 Allergies Allergy/AdvReac Type Severity Reaction Status Date / Time Tetanus Vaccines and Toxoid Allergy Intermediate Hives Verified 12/09/24 07:35 Penicillins Allergy Verified 12/09/24 07:35 Review of Systems Review of Systems Narrative: Pertinent positive and negative findings as per HPI Patient History Medical History (Updated 12/09/24 @ 10:01 by Mariza Keane MD) Tremor of unknown origin Cognitive changes White coat syndrome with hypertension Cellulitis and abscess of buttock Perirectal abscess (~06/2021) Hemorrhoid Dust allergy Osteoporosis Insomnia secondary to anxiety Hyperlipidemia Ovarian cyst Normal Papanicolaou smear Hyperlipidemia (08/22/12) Insomnia Surgical History Anesthesia Status post delivery (03/21/76) Status post tubal ligation (04/1986) Family History Mother Fibromyalgia Smoker PAD (peripheral artery disease) Stroke Parkinson's disease Brother Age: 61 Alcoholism Brother Age: 65 Hyperlipidemia Hypertension Smoker CAD (coronary artery disease) Father Small intestine cancer Grandfather Stroke Grandmother No problems noted. Grandmother Ovarian cancer Sister Brain tumor Social History household members: none Smoking Status: Never smoker alcohol intake: current (1 beer every 6 months) substance use type: marijuana (in the 70s) alcohol intake frequency: holidays/special occasions only Exam Initial Vital Signs Initial Vital Signs: Vital Signs Pulse Oximetry 94 12/09/24 07:28 General: Thin to the point of cachexia, significant anxiety, HEENT: Actually able to see the tip of the epiglottis with posterior pharyngeal exam. No swelling no erythema. No Cervical adenopathy Respiratory: Able to speak in full sentences, no obvious respiratory distress Skin: No obvious rashes, warm and dry Neurologic: Grossly intact no obvious asymmetries or abnormalities, baseline tremor upper extremities bilateral at rest exacerbated by her overall anxiety Psych: Fearful, tentative, able to speak in complete sentences with speech fluid Course Orders Ordered: Discontinued Medications Diazepam (Diazepam 5 Mg Tablet) 5 mg PO NOW ONE Stop: 12/09/24 07:33 Last Admin: 12/09/24 08:06 Dose: 5 mg Documented By: TOYIN Vital Signs Vital signs: Vital Signs - 8 hr 12/09/24 07:28 12/09/24 07:29 12/09/24 07:29 Temperature Pulse Rate 90 Respiratory Rate Blood Pressure 197/96 H Pulse Oximetry 94 98 Oxygen Delivery Method 12/09/24 07:30 12/09/24 07:34 12/09/24 08:00 Temperature 97.6 F Pulse Rate 90 89 93 H Respiratory Rate 14 16 Blood Pressure 197/96 H Pulse Oximetry 99 97 97 Oxygen Delivery Method Room Air 12/09/24 08:22 12/09/24 08:22 12/09/24 09:17 Temperature Pulse Rate 83 86 Respiratory Rate 16 Blood Pressure 186/83 H Pulse Oximetry 98 Oxygen Delivery Method Room Air 12/09/24 09:18 12/09/24 09:18 Temperature Pulse Rate 83 Respiratory Rate 14 Blood Pressure 137/62 Pulse Oximetry 97 Oxygen Delivery Method Room Air Medical Decision Making [facility] Narrative Medical decision making narrative: 64-year-old woman with diagnosed tremor working diagnosis is developing parkinsonian disease, concern for progressive cognitive dysfunction significant increased anxiety with intolerance to multiple medications, states she has tried anxiety medication previously but isn't sure exactly what it is and believes that might be helpful. The tightness in her throat is not impairing swallowing, airway management or speaking. Not associated with eating or drinking to suggest obstruction. Exam shows anxiety, baseline slight tremor, no respiratory distress, airway compromise, difficulty speaking/hoarse voice, posterior pharyngeal erythema After 5 mg of oral diazepam she is significantly less anxious, the globus sensation has completely resolved, she is able to eat and drink. We discussed small prescription of this to have at home should her anxiety worsen. She does have follow up with her psychiatrist as well as her primary care physician to continue discuss her worsening overall anxiety. At this time there was no indication for additional workup or hospitalization and she is discharged Discharge Plan Departure Patient Disposition: Home Clinical Impression: Globus syndrome, Anxiety Instructions: DI for Anxiety -- Adult Activity Restrictions/Additional Instructions: Thank you for coming in today That sensation that you are having in the back of your throat is called globus sensation or globus syndrome. The muscles of the back of your throat are responding to anxiety and tend to be tight and spasming. This is frightening but it is not life-threatening. You were given 5 mg of diazepam in the emergency department today and that is significantly helped with symptoms. I understand that your hemorrhoids were particularly troublesome last night and that may have increased her overall anxiety today. I would suggest discussing that with your primary care physician. Please do keep your appointment with your psychiatrist to discuss medical management options for your anxiety If you find that you are getting worse or develop any new symptoms, please feel free to return to the emergency department for further evaluation. Prescriptions: New diazepam 5 mg tablet 5 mg PO BID PRN (Reason: anxiety) Qty: 14 0RF No Action cholecalciferol (vitamin D3) 50,000 unit capsule 50,000 unit PO QWEEK Qty: 8 0RF ondansetron 4 mg tablet,disintegrating 4 mg PO Q8H MDD 8 mg Qty: 14 2RF Rx Instructions: dissolve one tablet under tongue up to every eight hours as needed for nausea. Do not exceed two tablets per day. carbidopa-levodopa 23.75-95 mg capsule, extended release 1 cap PO TID Qty: 90 0RF Rx Instructions: divide evenly over waking hours progesterone micronized 100 mg capsule 100 - 200 mg PO BEDTIME Qty: 90 3RF capsaicin 0.025 % cream 1 applic topical BID PRN (Reason: pain) Qty: 25 0RF Rx Instructions: do not wash area for at least 30 min after application estradiol 0.01 % (0.1 mg/gram) cream 1 g vaginal 2XW PRN (Reason: vulvovaginal irritation) Qty: 42.5 0RF clobetasol 0.05 % ointment See Rx Instructions topical .COMPLEX Qty: 45 2RF Rx Instructions: apply to affected area topically every other night at bedtime for 1 week, then twice per week for maintenance therapy topically; [employer] Magnesium PO temazepam 15 mg capsule 15 mg PO BEDTIME PRN (Reason: sleep) Qty: 14 0RF lidocaine 5 % ointment 1 applic topical BID PRN (Reason: pain) Qty: 35.44 0RF epinephrine [EpiPen 2-Stevan] 0.3 mg/0.3 mL auto-injector 0.3 mg IM Q5-15M PRN (Reason: anaphylaxis) Qty: 2 0RF Rx Instructions: do not exceed 3 doses per episode Referrals: Aleyda Ulloa DO [Primary Care Provider, Medical] Stand Alone Forms: Patient Portal/API
== END 2024-12-09 10:31 | disposition home or self-care (01) ==
PROVIDERS: Emergency Provider Emergency Medicine; PCP Family Medicine
DX: F45.8 Other somatoform disorders (principal); F41.9 Anxiety disorder, unspecified
CPT/HCPCS: 99283

== ENCOUNTER 2025-04-29 14:45 | Emergency (ER) | payer MEDICARE, OTHER, SELFPAY ==
[2025-04-29] VITALS (19 sets, daily range): BP systolic 131–186; BP diastolic 60–91; PULSE 73–94; RESP 12–27; TEMP 37.1; O2SAT 94–98; BMI 17.7
--- NOTE | 2025-04-29 14:56 | ED.HEATRA ---
HPI - Head Injury <Aleah Meyer MD - Last Filed: 05/01/25 10:37> General Chief complaint: Fall Stated complaint: Confusion hit head Time Seen by Provider: 04/29/25 14:56 History of Present Illness HPI Narrative: Patient is a 64-year-old female is brought in by daughter for increasing confusion, insomnia, and hallucinations. History obtained by daughter, as patient states nothing is wrong and that she wants to go home. Past medical history significant for Lewy body dementia (level 7), hyperlipidemia, hypertension. Daughter states that patient acts out in her sleep and was thinking that she was cleaning up the house however was smearing fecal matter all over the heck. Of note, patient has been having progressive cognitive decline over this year with increasing confusion and falls. Daughter is had patient move in with her were does not think she can care for her mother anymore. No fevers, chills, nausea, vomiting. Related Data Home Medications ?Medication ?Instructions ?Recorded ?Confirmed escitalopram oxalate 5 mg tablet 5 mg PO .HS 04/29/25 04/29/25 rivastigmine 4.6 mg/24 hour 1 patch topical DAILY 04/29/25 04/29/25 transdermal patch Previous Rx's ?Medication ?Instructions ?Recorded epinephrine 0.3 mg/0.3 mL 0.3 mg (0.3 mL) IM Q5-15M PRN 09/26/20 injection, auto-injector (EpiPen anaphylaxis #2 ea 2-Stevan) ondansetron 4 mg disintegrating 4 mg PO Q8H nausea #14 tabs 11/12/24 tablet capsaicin 0.025 % topical cream 1 applic topical BID PRN pain #25 11/22/24 grams diazepam 5 mg tablet 2.5 mg (1/2 x 5 mg) PO BID PRN 12/18/24 Held on 04/29/25. anxiety #30 tabs Instructions: Adverse reaction olanzapine 2.5 mg tablet 2.5 mg PO BEDTIME #30 tabs 05/01/25 Allergies Allergy/AdvReac Type Severity Reaction Status Date / Time Tetanus Vaccines and Toxoid Allergy Intermediate Hives Verified 04/29/25 15:02 Penicillins Allergy Verified 04/29/25 15:02 Review of Systems <Aleah Meyer MD - Last Filed: 05/01/25 10:37> Review of Systems ROS Unobtainable: All systems reviewed & are unremarkable except as noted in HPI and below Patient History <Aleah Meyer MD - Last Filed: 05/01/25 10:37> Medical History Tremor of unknown origin Cognitive changes White coat syndrome with hypertension Cellulitis and abscess of buttock Perirectal abscess (~06/2021) Hemorrhoid Dust allergy Osteoporosis Insomnia secondary to anxiety Hyperlipidemia Ovarian cyst Normal Papanicolaou smear Hyperlipidemia (08/22/12) Insomnia Surgical History Anesthesia Status post delivery (03/21/76) Status post tubal ligation (04/1986) Family History Mother Fibromyalgia Smoker PAD (peripheral artery disease) Stroke Parkinson's disease Brother Age: 61 Alcoholism Brother Age: 65 Hyperlipidemia Hypertension Smoker CAD (coronary artery disease) Father Small intestine cancer Grandfather Stroke Grandmother No problems noted. Grandmother Ovarian cancer Sister Brain tumor Social History household members: none Smoking Status: Never smoker alcohol intake: current substance use type: marijuana alcohol intake frequency: holidays/special occasions only Exam <Aleah Meyer MD - Last Filed: 05/01/25 10:37> Narrative Exam Narrative: Vitals: ?Afebrile, all other vitals within normal range Gen: ?Well-developed, thin-appearing female, no acute distress. Required two nurse assist to transfer from wheelchair to bed. Cards: ?Tachycardic, no murmurs, rubs, gallops Pulm: ?No increased work of breathing, clear to auscultation Abd: ?Soft, nondistended, nontender to palpation Ext:? No edema in bilateral lower extremities, moderate effusion to the anterior left knee Neuro: ?A&O x4, cranial nerves grossly intact, moving all 4 extremities spontaneously. She has fine resting tremor. Psych: ?Appropriate Initial Vital Signs Initial Vital Signs: Vital Signs Temperature 98.7 F 04/29/25 15:02 Pulse Rate 89 04/29/25 15:02 Respiratory Rate 19 04/29/25 15:02 Blood Pressure 168/85 H 12/29/25 15:02 Pulse Oximetry 96 04/29/25 15:02 Oxygen Delivery Method Room Air 04/29/25 15:02 <Ildefonso Gates MD - Last Filed: 05/01/25 15:56> Initial Vital Signs Initial Vital Signs: Vital Signs Temperature 98.7 F 04/29/25 15:02 Pulse Rate 89 04/29/25 15:02 Respiratory Rate 19 04/29/25 15:02 Blood Pressure 168/85 H 04/29/25 15:02 Pulse Oximetry 96 04/29/25 15:02 Oxygen Delivery Method Room Air 04/29/25 15:02 <Francia Gonzales DO - Last Filed: 05/04/25 22:56> Initial Vital Signs Initial Vital Signs: Vital Signs Temperature 98.7 F 04/29/25 15:02 Pulse Rate 89 04/29/25 15:02 Respiratory Rate 19 04/29/25 15:02 Blood Pressure 168/85 H 04/29/25 15:02 Pulse Oximetry 96 04/29/25 15:02 Oxygen Delivery Method Room Air 04/29/25 15:02 Course <Aleah Meyer MD - Last Filed: 05/01/25 10:37> Orders Ordered: Discontinued Medications Acetaminophen (Acetaminophen 325 Mg Tablet) 650 mg PO NOW ONE Stop: 04/30/25 03:20 Last Admin: 04/30/25 03:25 Dose: 650 mg Documented By: JANETTE Acetaminophen (Acetaminophen 325 Mg Tablet) 650 mg PO NOW ONE Stop: 05/01/25 01:59 Last Admin: 05/01/25 03:02 Dose: 650 mg Documented By: JULIA Diazepam (Diazepam 2 Mg Tablet) 2 mg PO NOW ONE Stop: 05/01/25 02:00 Last Admin: 05/01/25 03:02 Dose: 2 mg Documented By: JULIA Droperidol (Droperidol 2.5 Mg/Ml Vial) 0.625 mg IV NOW ONE Stop: 04/29/25 17:37 Last Admin: 04/29/25 17:49 Dose: 0.625 mg Documented By: MICHELLE Escitalopram Oxalate (Escitalopram 10 Mg Tablet) 5 mg PO DAILY [facility] Last Admin: 04/29/25 20:37 Dose: 5 mg Documented By: MICHELLE Escitalopram Oxalate (Escitalopram 10 Mg Tablet) 5 mg PO BEDTIME [facility] Last Admin: 04/30/25 22:22 Dose: 5 mg Documented By: VALENTÍN Hydroxyzine HCl (Hydroxyzine Hcl 25 Mg Tablet) 25 mg PO NOW ONE Stop: 04/29/25 16:09 Last Admin: 04/29/25 16:32 Dose: 25 mg Documented By: MICHELLE Melatonin (Melatonin 3 Mg Tablet) 3 mg PO BEDTIME [facility] Last Admin: 04/30/25 22:22 Dose: 3 mg Documented By: Admin: 04/29/25 20:11 Dose: 3 mg Documented By: MICHELLE Non-Formulary Medication (Rivastigmine) 4.6 mg TOP DAILY [facility] Last Admin: 04/29/25 19:15 Dose: 4.6 mg Documented By: MICHELLE Non-Formulary Medication (Rivastigmine) 4.6 mg TOP BEDTIME [facility] Last Admin: 04/30/25 21:20 Dose: 4.6 mg Documented By: VALENTÍN Olanzapine (Olanzapine 2.5 Mg Tablet) 2.5 mg PO BEDTIME [facility] Last Admin: 04/30/25 22:23 Dose: 2.5 mg Documented By: Admin: 04/30/25 03:09 Dose: 2.5 mg Documented By: MEGHANN Vital Signs Vital signs: Vital Signs - 8 hr 05/01/25 08:00 05/01/25 08:29 05/01/25 08:29 Pulse Rate 55 L 61 Blood Pressure 145/67 H Pulse Oximetry 99 99 05/01/25 08:30 05/01/25 09:00 05/01/25 09:30 Pulse Rate 59 L 74 75 Blood Pressure Pulse Oximetry 99 97 91 05/01/25 10:00 05/01/25 10:30 Pulse Rate 81 74 Blood Pressure Pulse Oximetry 97 98 <Ildefonso Gates MD - Last Filed: 05/01/25 15:56> Orders Ordered: Discontinued Medications Acetaminophen (Acetaminophen 325 Mg Tablet) 650 mg PO NOW ONE Stop: 04/30/25 03:20 Last Admin: 04/30/25 03:25 Dose: 650 mg Documented By: JANETTE Acetaminophen (Acetaminophen 325 Mg Tablet) 650 mg PO NOW ONE Stop: 05/01/25 01:59 Last Admin: 05/01/25 03:02 Dose: 650 mg Documented By: JULIA Diazepam (Diazepam 2 Mg Tablet) 2 mg PO NOW ONE Stop: 05/01/25 02:00 Last Admin: 05/01/25 03:02 Dose: 2 mg Documented By: JULIA Droperidol (Droperidol 2.5 Mg/Ml Vial) 0.625 mg IV NOW ONE Stop: 04/29/25 17:37 Last Admin: 04/29/25 17:49 Dose: 0.625 mg Documented By: MICHELLE Escitalopram Oxalate (Escitalopram 10 Mg Tablet) 5 mg PO DAILY [facility] Last Admin: 04/29/25 20:37 Dose: 5 mg Documented By: MICHELLE Escitalopram Oxalate (Escitalopram 10 Mg Tablet) 5 mg PO BEDTIME [facility] Last Admin: 04/30/25 22:22 Dose: 5 mg Documented By: VALENTÍN Hydroxyzine HCl (Hydroxyzine Hcl 25 Mg Tablet) 25 mg PO NOW ONE Stop: 04/29/25 16:09 Last Admin: 04/29/25 16:32 Dose: 25 mg Documented By: MICHELLE Melatonin (Melatonin 3 Mg Tablet) 3 mg PO BEDTIME [facility] Last Admin: 04/30/25 22:22 Dose: 3 mg Documented By: Admin: 04/29/25 20:11 Dose: 3 mg Documented By: MICHELLE Non-Formulary Medication (Rivastigmine) 4.6 mg TOP DAILY [facility] Last Admin: 04/29/25 19:15 Dose: 4.6 mg Documented By: MICHELLE Non-Formulary Medication (Rivastigmine) 4.6 mg TOP BEDTIME [facility] Last Admin: 04/30/25 21:20 Dose: 4.6 mg Documented By: VALENTÍN Olanzapine (Olanzapine 2.5 Mg Tablet) 2.5 mg PO BEDTIME [facility] Last Admin: 04/30/25 22:23 Dose: 2.5 mg Documented By: Admin: 04/30/25 03:09 Dose: 2.5 mg Documented By: MEGHANN Vital Signs Vital signs: Vital Signs - 8 hr 05/01/25 08:00 05/01/25 08:29 05/01/25 08:29 Pulse Rate 55 L 61 Blood Pressure 145/67 H Pulse Oximetry 99 99 05/01/25 08:30 05/01/25 09:00 05/01/25 09:30 Pulse Rate 59 L 74 75 Blood Pressure Pulse Oximetry 99 97 91 05/01/25 10:00 05/01/25 10:30 Pulse Rate 81 74 Blood Pressure Pulse Oximetry 97 98 <Francia Gonzales, DO - Last Filed: 05/04/25 22:56> Orders Ordered: Discontinued Medications Acetaminophen (Acetaminophen 325 Mg Tablet) 650 mg PO NOW ONE Stop: 04/30/25 03:20 Last Admin: 04/30/25 03:25 Dose: 650 mg Documented By: JANETTE Acetaminophen (Acetaminophen 325 Mg Tablet) 650 mg PO NOW ONE Stop: 05/01/25 01:59 Last Admin: 05/01/25 03:02 Dose: 650 mg Documented By: JULIA Diazepam (Diazepam 2 Mg Tablet) 2 mg PO NOW ONE Stop: 05/01/25 02:00 Last Admin: 05/01/25 03:02 Dose: 2 mg Documented By: JULIA Droperidol (Droperidol 2.5 Mg/Ml Vial) 0.625 mg IV NOW ONE Stop: 04/29/25 17:37 Last Admin: 04/29/25 17:49 Dose: 0.625 mg Documented By: MICHELLE Escitalopram Oxalate (Escitalopram 10 Mg Tablet) 5 mg PO DAILY [facility] Last Admin: 04/29/25 20:37 Dose: 5 mg Documented By: MICHELLE Escitalopram Oxalate (Escitalopram 10 Mg Tablet) 5 mg PO BEDTIME [facility] Last Admin: 04/30/25 22:22 Dose: 5 mg Documented By: VALENTÍN Hydroxyzine HCl (Hydroxyzine Hcl 25 Mg Tablet) 25 mg PO NOW ONE Stop: 04/29/25 16:09 Last Admin: 04/29/25 16:32 Dose: 25 mg Documented By: MICHELLE Melatonin (Melatonin 3 Mg Tablet) 3 mg PO BEDTIME [facility] Last Admin: 04/30/25 22:22 Dose: 3 mg Documented By: Admin: 04/29/25 20:11 Dose: 3 mg Documented By: MICHELLE Non-Formulary Medication (Rivastigmine) 4.6 mg TOP DAILY [facility] Last Admin: 04/29/25 19:15 Dose: 4.6 mg Documented By: MICHELLE Non-Formulary Medication (Rivastigmine) 4.6 mg TOP BEDTIME [facility] Last Admin: 04/30/25 21:20 Dose: 4.6 mg Documented By: VALENTÍN Olanzapine (Olanzapine 2.5 Mg Tablet) 2.5 mg PO BEDTIME [facility] Last Admin: 04/30/25 22:23 Dose: 2.5 mg Documented By: Admin: 04/30/25 03:09 Dose: 2.5 mg Documented By: MEGHANN Vital Signs Vital signs: Vital Signs - 8 hr 05/01/25 08:00 05/01/25 08:29 05/01/25 08:29 Pulse Rate 55 L 61 Blood Pressure 145/67 H Pulse Oximetry 99 99 05/01/25 08:30 05/01/25 09:00 05/01/25 09:30 Pulse Rate 59 L 74 75 Blood Pressure Pulse Oximetry 99 97 91 05/01/25 10:00 05/01/25 10:30 Pulse Rate 81 74 Blood Pressure Pulse Oximetry 97 98 MDM - Head Injury <Aleah Meyer MD - Last Filed: 05/01/25 10:37> Lab Data 04/29/25 15:57 04/29/25 15:57 Labs: Lab Results 04/29/25 04/29/25 04/29/25 Range/Units 15:20 15:49 15:57 WBC 5.9 (4.5-11.0) X10^3/uL RBC 3.88 L (4.0-5.2) X10^6/uL Hgb 11.7 L (12.0-16.0) g/dL Hct 35.2 L (36-46) % MCV 91.0 (80-100) fL MCH 30.3 (26-34) PG MCHC 33.3 (30-36) % RDW 15.0 H (11.6-14.8) % Plt Count 359 (150-400) X10^3/uL Neut % (Auto) 70.3 (50-75) % Lymph % (Auto) 16.5 L (25-40) % [place] % (Auto) 10.9 (3-14) % Eos % (Auto) 2.0 (2-4) % Baso % (Auto) 0.3 (0-2) % Neut # (Auto) 4100 (2763-8810) /uL Lymph # (Auto) 1000 L (4209-3143) /uL [place] # (Auto) 600 (0-900) /uL Eos # (Auto) 100 (0-450) /uL Baso # (Auto) 0 (0-100) /uL Sodium 136 L (137-145) mmol/L Potassium 3.9 (3.4-5.1) mmol/L Chloride 104 (98-107) mmol/L Carbon Dioxide 26 (22-32) mmol/L BUN 18 H (7-17) mg/dL Creatinine 0.56 (0.52-1.04) mg/dL Estimated GFR > 60 (>60) mL/min BUN/Creatinine Ratio 32.1 H (6-22) Glucose 100 H (70-99) mg/dL Calcium 8.9 (8.4-10.2) mg/dL Total Bilirubin 0.9 (0.2-1.3) mg/dL AST 38 H (14-36) IU/L ALT 37 H (<35) IU/L Alkaline Phosphatase 58 (38-126) U/L Troponin I < 0.012 (0.01-0.034) ng/mL Total Protein 6.9 (6.3-8.2) g/dL Albumin 4.1 (3.5-5.0) g/dL Globulin 2.8 (1.7-4.1) g/dL Albumin/Globulin Ratio 1.5 (1.0-2.8) TSH 2.25 (0.47-4.68) uIU/mL Urine Color Yellow Urine Appearance Clear Urine pH 6.5 (4.5-8.0) Ur Specific [place] 1.015 (1.000-1.035) Urine Protein Negative (Negative) Urine Glucose (UA) Negative (Negative) g/dL Urine Ketones Negative (NEGATIVE) Urine Occult Blood Trace-intact (Negative) Urine Nitrate Negative (Negative) Urine Bilirubin Negative (NEGATIVE) Urine Urobilinogen 0.2 (0.2) E.U./dL Ur Leukocyte Esterase Trace H (NEGATIVE) Urine RBC 0-1/hpf (0-5/HPF) Urine WBC 1-5/hpf (0-5/HPF) Ur Squamous Epith Cells 0-1 /hpf (0-5/HPF) Urine Bacteria Few (2-10) H (None) Ur Culture Indicated? Cult not indicated Vol Urine Centrifuged 10ml (spun) SARS-CoV-2 (PCR) Negative (Negative) Influenza A (RT-PCR) Flu a negative (NEGATIVE) Influenza B (RT-PCR) Flu b negative (NEGATIVE) RSV (PCR) Negative (Negative) Imaging Data CT scan - head: Radiologist's Impression: PROCEDURE: CT HEAD/BRAIN WO CON INDICATIONS: trauma TECHNIQUE: Noncontrast 4.5 mm thick angled axial sections acquired from the foramen magnum to the vertex, with coronal and sagittal reformats. For radiation dose reduction, the following was used: automated exposure control, adjustment of mA and/or kV according to patient size. COMPARISON: [facility], CT, CT HEAD/BRAIN WO CON, 09/10/2024, 13:08. FINDINGS: Image quality: Diagnostic. CSF spaces: Basal cisterns are patent. No extra-axial fluid collections. The ventricles are symmetric in size and shape. Brain: No intracranial bleeds or mass effect. There is cerebral volume loss, with resultant ventricular and sulcal prominence. There are periventricular and deep white matter chronic small vessel ischemic changes. There is intracranial internal carotid artery atherosclerosis. Skull and face: Calvarium and visualized facial bones appear intact, without suspicious lesions. Sinuses: Visualized sinuses and mastoids are clear. IMPRESSION: No acute intracranial pathology. Chest x-ray: Radiologist's Impression: PROCEDURE: XR CHEST 1V INDICATIONS: trauma TECHNIQUE: One view of the chest was acquired. COMPARISON: [facility], CR, XR CHEST 1V, 10/19/2024, 10:29. FINDINGS: Surgical changes and devices: None. Lungs and pleura: Lungs are clear. No pleural effusions or pneumothorax. Mediastinum: Mediastinal contours appear normal. Heart size is normal. Bones and chest wall: No suspicious bony lesions. Overlying soft tissues appear unremarkable. IMPRESSION: No acute cardiopulmonary abnormality is seen. XR knee - left: Radiologist's Impression: PROCEDURE: XR KNEE LT 3V INDICATIONS: knee pain TECHNIQUE: 3 views of the knee were acquired. COMPARISON: None. FINDINGS: Bones: No fractures or dislocations. No suspicious bony lesions. Soft tissues: No joint effusion. No suspicious soft tissue calcifications. IMPRESSION: No acute osseous abnormality. If there is continued clinical concern or persistent symptoms, repeat radiographs or cross-sectional imaging (e.g. CT, MRI) may be helpful for further evaluation. CT scan - cervical spine: Radiologist's Impression: PROCEDURE: CT CERVICAL SPINE WO CON INDICATIONS: trauma TECHNIQUE: Noncontrast 3 mm thick sections acquired from the skull base to the T4 level. Sagittal and coronal reformats were then constructed. For radiation dose reduction, the following was used: automated exposure control, adjustment of mA and/or kV according to patient size. COMPARISON: None. FINDINGS: Image quality: Diagnostic Bones: No fractures or dislocations. Visualized superior ribs are intact. Soft tissues: Prevertebral soft tissues are normal in thickness. No paravertebral hematomas. No apical pneumothoraces. IMPRESSION: No displaced fracture or traumatic subluxation. MDM Narrative Medical decision making narrative: Patient is a 64-year-old female with Lewy body dementia and progressive cognitive decline, brought in by daughter, for head trauma and placement as she is no longer able to care for her mother. EMR Review: Patient has few documentation in the EMR with most recent ER visit on 09/2024, 11/2024 for chest pain and anxiety. She otherwise had no encounters in 2023. Followed up with her PCP was was prescribed diazepam. Differential diagnosis: ACS, hypoglycemia, infection to include UTI, URI, other;electrolyte abnormalities, protein malnutrition, worsening cognitive decline, polypharmacy, medication withdrawal, other. Labs: CBC without leukocytosis or left shift, mild anemia, normal platelets. CMP largely unremarkable. AST 30, ALT 37, elevated from previous labs obtained on 11/10/2024. Troponins undetectable. Albumin normal. TSH normal. Urinalysis with trace leuk esterase and few bacteria --not consistent with UTI. Imaging: CXR, CT head and cervical spine, knee XR without any acute injuries. EK:44 normal sinus rhythm, HR 79, SD 146, QRS 80, QTC 426, no axis deviation, no evidence of ischemia. This appears largely unchanged from EKG obtained on 10/19/2024 Consultation: Social work consulted to assist in placement while patient boards in the ER for 48 hours. ED course: 16:32 Patient evaluated. Reports anxiety. Will rx hydroxyzine. 17:02 Called hospitalist to admit patient; informed she will need to board in ER for 48 hours prior to admission 17:10 Discussed case with social work, who will assist and initiate finding placement 17:37 Other daughter at bedside requesting additional medications for patient, droperidol ordered 20:37 Patient restless, informed nursing staff that we will restart home medications: escitalopram, melatonin, rivastigmine prior to adding additional medications, but can consider olanzapine if needed. 01:00 Transfer of care to Dr. Ildefonso Gates pending placement versus admission for placement. 04/25/25, Kody Cottrell. Sign-out from Dr. Meyer, possible detention placement. health services coordinator to be consulted later this morning. 64-year-old female with history of Lewy body dementia, recent falls, increased agitation, family feels like they cannot take care of her at home. Imaging studies unrevealing. Screening labs unremarkable. health services coordinator to be consulted. Assumed care. Chest x-ray no acute changes, see radiology report. CT head no acute changes, see radiology report. CT cervical spine, DJD changes, no acute bony changes, see radiology report. X-ray right knee series, no acute changes. See radiology report. Lab data: White blood cell count 5900, hemoglobin 11.7, platelets adequate. Glucose 100. BUN 18 slight elevation with creatinine 0.56 normal. Normal serum CO2 and electrolytes. Slight transaminitis, alkaline phosphatase and total bilirubin levels normal. Troponin negative/unmeasurable. COVID RSV flu negative. Urinalysis negative. 0700, child protective services social worker to be consulted, possible NHP. Signed out to Dr Gonzales. Dr. Gonzales signed out to me by Dr. Gates. Awaiting placement. Social work has been working on this throughout the day may require social adamant at 48 hours 04/30/25, [id number]. Possible at facility [facility] tomorrow. health services coordinator consult in the morning again when available. Consider social admission at 48 hours, which would happened during daytime tomorrow, if not otherwise placed. Reassumed care. 0700 Transfer of care from Dr. Gates to myself. Awaiting placement at a facility, otherwise patient will meet inpatient criteria for admission. 1036 Informed by social work that the patient has placement to long-term care facility tomorrow. road worker has coordinated with the patient's family to allow her to go home for today/this evening, and family will present patient to the care facility tomorrow. Patient states that olanzapine is the only medication that allowed her to sleep at night. A 30 day prescription was provided. <Ildefonso Gates MD - Last Filed: 05/01/25 15:56> Lab Data Attestation: I reviewed the patient's lab results. Lab results narrative: White blood cell count 5900, hemoglobin 11.7, platelets adequate. Glucose 100. BUN 18 slight elevation with creatinine 0.56 normal. Normal serum CO2 and electrolytes. Slight transaminitis, alkaline phosphatase and total bilirubin levels normal. Troponin negative/unmeasurable. COVID RSV flu negative. Urinalysis negative. Labs: Lab Results 04/29/25 04/29/25 04/29/25 Range/Units 15:20 15:49 15:57 WBC 5.9 (4.5-11.0) X10^3/uL RBC 3.88 L (4.0-5.2) X10^6/uL Hgb 11.7 L (12.0-16.0) g/dL Hct 35.2 L (36-46) % MCV 91.0 (80-100) fL MCH 30.3 (26-34) PG MCHC 33.3 (30-36) % RDW 15.0 H (11.6-14.8) % Plt Count 359 (150-400) X10^3/uL Neut % (Auto) 70.3 (50-75) % Lymph % (Auto) 16.5 L (25-40) % [place] % (Auto) 10.9 (3-14) % Eos % (Auto) 2.0 (2-4) % Baso % (Auto) 0.3 (0-2) % Neut # (Auto) 4100 (5819-6938) /uL Lymph # (Auto) 1000 L (7818-0292) /uL [place] # (Auto) 600 (0-900) /uL Eos # (Auto) 100 (0-450) /uL Baso # (Auto) 0 (0-100) /uL Sodium 136 L (137-145) mmol/L Potassium 3.9 (3.4-5.1) mmol/L Chloride 104 (98-107) mmol/L Carbon Dioxide 26 (22-32) mmol/L BUN 18 H (7-17) mg/dL Creatinine 0.56 (0.52-1.04) mg/dL Estimated GFR > 60 (>60) mL/min BUN/Creatinine Ratio 32.1 H (6-22) Glucose 100 H (70-99) mg/dL Calcium 8.9 (8.4-10.2) mg/dL Total Bilirubin 0.9 (0.2-1.3) mg/dL AST 38 H (14-36) IU/L ALT 37 H (<35) IU/L Alkaline Phosphatase 58 (38-126) U/L Troponin I < 0.012 (0.01-0.034) ng/mL Total Protein 6.9 (6.3-8.2) g/dL Albumin 4.1 (3.5-5.0) g/dL Globulin 2.8 (1.7-4.1) g/dL Albumin/Globulin Ratio 1.5 (1.0-2.8) TSH 2.25 (0.47-4.68) uIU/mL Urine Color Yellow Urine Appearance Clear Urine pH 6.5 (4.5-8.0) Ur Specific [place] 1.015 (1.000-1.035) Urine Protein Negative (Negative) Urine Glucose (UA) Negative (Negative) g/dL Urine Ketones Negative (NEGATIVE) Urine Occult Blood Trace-intact (Negative) Urine Nitrate Negative (Negative) Urine Bilirubin Negative (NEGATIVE) Urine Urobilinogen 0.2 (0.2) E.U./dL Ur Leukocyte Esterase Trace H (NEGATIVE) Urine RBC 0-1/hpf (0-5/HPF) Urine WBC 1-5/hpf (0-5/HPF) Ur Squamous Epith Cells 0-1 /hpf (0-5/HPF) Urine Bacteria Few (2-10) H (None) Ur Culture Indicated? Cult not indicated Vol Urine Centrifuged 10ml (spun) SARS-CoV-2 (PCR) Negative (Negative) Influenza A (RT-PCR) Flu a negative (NEGATIVE) Influenza B (RT-PCR) Flu b negative (NEGATIVE) RSV (PCR) Negative (Negative) MDM Narrative Medical decision making narrative: Patient is a 64-year-old female with Lewy body dementia and progressive cognitive decline, brought in by daughter, for head trauma and placement as she is no longer able to care for her mother. EMR Review: Patient has few documentation in the EMR with most recent ER visit on 09/2024, 11/2024 for chest pain and anxiety. She otherwise had no encounters in 2023. Followed up with her PCP was was prescribed diazepam. Differential diagnosis: ACS, hypoglycemia, infection to include UTI, URI, other;electrolyte abnormalities, protein malnutrition, worsening cognitive decline, polypharmacy, medication withdrawal, other. Labs: CBC without leukocytosis or left shift, mild anemia, normal platelets. CMP largely unremarkable. AST 30, ALT 37, elevated from previous labs obtained on 11/10/2024. Troponins undetectable. Albumin normal. TSH normal. Urinalysis with trace leuk esterase and few bacteria --not consistent with UTI. Imaging: CXR, CT head and cervical spine, knee XR without any acute injuries. EK:44 normal sinus rhythm, HR 79, SD 146, QRS 80, QTC 426, no axis deviation, no evidence of ischemia. This appears largely unchanged from EKG obtained on 10/19/2024 Consultation: Social work consulted to assist in placement while patient boards in the ER for 48 hours. ED course: 16:32 Patient evaluated. Reports anxiety. Will rx hydroxyzine. 17:02 Called hospitalist to admit patient; informed she will need to board in ER for 48 hours prior to admission 17:10 Discussed case with social work, who will assist and initiate finding placement 17:37 Other daughter at bedside requesting additional medications for patient, droperidol ordered 20:37 Patient restless, informed nursing staff that we will restart home medications: escitalopram, melatonin, rivastigmine prior to adding additional medications, but can consider olanzapine if needed. 01:00 Transfer of care to Dr. Ildefonso Gates pending placement versus admission for placement. 04/25/25, 0100, Kody. Sign-out from Dr. Meyer, possible detention placement. health services coordinator to be consulted later this morning. 64-year-old female with history of Lewy body dementia, recent falls, increased agitation, family feels like they cannot take care of her at home. Imaging studies unrevealing. Screening labs unremarkable. health services coordinator to be consulted. Assumed care. Chest x-ray no acute changes, see radiology report. CT head no acute changes, see radiology report. CT cervical spine, DJD changes, no acute bony changes, see radiology report. X-ray right knee series, no acute changes. See radiology report. Lab data: White blood cell count 5900, hemoglobin 11.7, platelets adequate. Glucose 100. BUN 18 slight elevation with creatinine 0.56 normal. Normal serum CO2 and electrolytes. Slight transaminitis, alkaline phosphatase and total bilirubin levels normal. Troponin negative/unmeasurable. COVID RSV flu negative. Urinalysis negative. 0700, child protective services social worker to be consulted, possible NHP. Signed out to Dr Gonzales. Dr. Gonzales signed out to me by Dr. Gates. Awaiting placement. Social work has been working on this throughout the day may require social adamant at 48 hours 04/30/25, 2300Kody. Possible placement at facility [facility] tomorrow. health services coordinator consult in the morning again when available. Consider social admission at 48 hours, which would happened during daytime tomorrow, if not otherwise placed. Reassumed care. 0700, signed out to Dr Meyer. 0700 Transfer of care from Dr. Gates to myself. Awaiting placement at a facility, otherwise patient will meet inpatient criteria for admission. 1036 Informed by social work that the patient has placement to long-term care facility tomorrow. road worker has coordinated with the patient's family to allow her to go home for today/this evening, and family will present patient to the care facility tomorrow. Patient states that olanzapine is the only medication that allowed her to sleep at night. A 30 day prescription was provided. <Francia Gonzales DO - Last Filed: 05/04/25 22:56> Lab Data Labs: Lab Results 04/29/25 04/29/25 04/29/25 Range/Units 15:20 15:49 15:57 WBC 5.9 (4.5-11.0) X10^3/uL RBC 3.88 L (4.0-5.2) X10^6/uL Hgb 11.7 L (12.0-16.0) g/dL Hct 35.2 L (36-46) % MCV 91.0 (80-100) fL MCH 30.3 (26-34) PG MCHC 33.3 (30-36) % RDW 15.0 H (11.6-14.8) % Plt Count 359 (150-400) X10^3/uL Neut % (Auto) 70.3 (50-75) % Lymph % (Auto) 16.5 L (25-40) % Weakley % (Auto) 10.9 (3-14) % Eos % (Auto) 2.0 (2-4) % Baso % (Auto) 0.3 (0-2) % Neut # (Auto) 4100 (1534-5816) /uL Lymph # (Auto) 1000 L (8260-5510) /uL Weakley # (Auto) 600 (0-900) /uL Eos # (Auto) 100 (0-450) /uL Baso # (Auto) 0 (0-100) /uL Sodium 136 L (137-145) mmol/L Potassium 3.9 (3.4-5.1) mmol/L Chloride 104 (98-107) mmol/L Carbon Dioxide 26 (22-32) mmol/L BUN 18 H (7-17) mg/dL Creatinine 0.56 (0.52-1.04) mg/dL Estimated GFR > 60 (>60) mL/min BUN/Creatinine Ratio 32.1 H (6-22) Glucose 100 H (70-99) mg/dL Calcium 8.9 (8.4-10.2) mg/dL Total Bilirubin 0.9 (0.2-1.3) mg/dL AST 38 H (14-36) IU/L ALT 37 H (<35) IU/L Alkaline Phosphatase 58 (38-126) U/L Troponin I < 0.012 (0.01-0.034) ng/mL Total Protein 6.9 (6.3-8.2) g/dL Albumin 4.1 (3.5-5.0) g/dL Globulin 2.8 (1.7-4.1) g/dL Albumin/Globulin Ratio 1.5 (1.0-2.8) TSH 2.25 (0.47-4.68) uIU/mL Urine Color Yellow Urine Appearance Clear Urine pH 6.5 (4.5-8.0) Ur Specific [place] 1.015 (1.000-1.035) Urine Protein Negative (Negative) Urine Glucose (UA) Negative (Negative) g/dL Urine Ketones Negative (NEGATIVE) Urine Occult Blood Trace-intact (Negative) Urine Nitrate Negative (Negative) Urine Bilirubin Negative (NEGATIVE) Urine Urobilinogen 0.2 (0.2) E.U./dL Ur Leukocyte Esterase Trace H (NEGATIVE) Urine RBC 0-1/hpf (0-5/HPF) Urine WBC 1-5/hpf (0-5/HPF) Ur Squamous Epith Cells 0-1 /hpf (0-5/HPF) Urine Bacteria Few (2-10) H (None) Ur Culture Indicated? Cult not indicated Vol Urine Centrifuged 10ml (spun) SARS-CoV-2 (PCR) Negative (Negative) Influenza A (RT-PCR) Flu a negative (NEGATIVE) Influenza B (RT-PCR) Flu b negative (NEGATIVE) RSV (PCR) Negative (Negative) MDM Narrative Medical decision making narrative: Patient is a 64-year-old female brought in for head trauma EMR Review: Differential diagnosis: Labs: Imaging: EK:44 normal sinus rhythm, HR 79, SD 146, QRS 80, QTC 426, no axis deviation, no evidence of ischemia. This appears largely unchanged from EKG obtained on 10/19/2024 Consultation: ED course: 04/25/25, Kody Cottrell. Sign-out from Dr. Meyer, possible detention placement. health services coordinator to be consulted later this morning. 64-year-old female with history of Lewy body dementia, recent falls, increased agitation, family feels like they cannot take care of her at home. Imaging studies unrevealing. Screening labs unremarkable. health services coordinator to be consulted. Assumed care. Chest x-ray no acute changes, see radiology report. CT head no acute changes, see radiology report. CT cervical spine, DJD changes, no acute bony changes, see radiology report. X-ray right knee series, no acute changes. See radiology report. Lab data: White blood cell count 5900, hemoglobin 11.7, platelets adequate. Glucose 100. BUN 18 slight elevation with creatinine 0.56 normal. Normal serum CO2 and electrolytes. Slight transaminitis, alkaline phosphatase and total bilirubin levels normal. Troponin negative/unmeasurable. COVID RSV flu negative. Urinalysis negative. Dr. Dodson signed out to me by Dr. Gates. Awaiting placement. Social work has been working on this throughout the day may require social adamant at 48 hours Discharge Plan Departure Patient Disposition: Home Clinical Impression: Weakness, Lewy body dementia Activity Restrictions/Additional Instructions: You were seen in the emergency department due to progressive cognitive decline and family no longer being able to care for you. In the ER, social work was consulted and was able to find placement at [facility]. Arrangements were made for you to come home for the evening, and be placed in your long-term care facility tomorrow, 05/02/2025. You have been given a prescription for olanzapine to take in the evenings. Thank you for trusting us with your care. Best of luck to you, Ms. Dunlapvey. - Dr. Meyer Prescriptions: New olanzapine 2.5 mg tablet 2.5 mg PO BEDTIME Qty: 30 0RF No Action ondansetron 4 mg tablet,disintegrating 4 mg PO Q8H MDD 8 mg Qty: 14 2RF Rx Instructions: dissolve one tablet under tongue up to every eight hours as needed for nausea. Do not exceed two tablets per day. capsaicin 0.025 % cream 1 applic topical BID PRN (Reason: pain) Qty: 25 0RF Rx Instructions: do not wash area for at least 30 min after application diazepam 5 mg tablet 2.5 mg PO BID PRN (Reason: anxiety) Qty: 30 0RF Rx Instructions: Take 1/2 tablet once or twice daily as needed for anxiety epinephrine [EpiPen 2-Stevan] 0.3 mg/0.3 mL auto-injector 0.3 mg IM Q5-15M PRN (Reason: anaphylaxis) Qty: 2 0RF Rx Instructions: do not exceed 3 doses per episode escitalopram oxalate 5 mg tablet 5 mg PO .HS rivastigmine 4.6 mg/24 hour patch 24 hour 1 patch topical DAILY Referrals: Aleyda Ulloa DO [Primary Care Provider, Medical] Stand Alone Forms: Patient Portal/API
--- NOTE | 2025-04-29 15:09 | DI.CT.S_ITS ---
PROCEDURE: CT HEAD/BRAIN WO CON INDICATIONS: trauma TECHNIQUE: Noncontrast 4.5 mm thick angled axial sections acquired from the foramen magnum to the vertex, with coronal and sagittal reformats. For radiation dose reduction, the following was used: automated exposure control, adjustment of mA and/or kV according to patient size. COMPARISON: [facility], CT, CT HEAD/BRAIN WO CON, 09/10/2024, 13:08. FINDINGS: Image quality: Diagnostic. CSF spaces: Basal cisterns are patent. No extra-axial fluid collections. The ventricles are symmetric in size and shape. Brain: No intracranial bleeds or mass effect. There is cerebral volume loss, with resultant ventricular and sulcal prominence. There are periventricular and deep white matter chronic small vessel ischemic changes. There is intracranial internal carotid artery atherosclerosis. Skull and face: Calvarium and visualized facial bones appear intact, without suspicious lesions. Sinuses: Visualized sinuses and mastoids are clear. IMPRESSION: No acute intracranial pathology. Approved by: Sayra Torres M.D.,Ph.D. on 04/29/2025 at 16:33
--- NOTE | 2025-04-29 15:09 | DI.CT.S_ITS ---
PROCEDURE: CT CERVICAL SPINE WO CON INDICATIONS: trauma TECHNIQUE: Noncontrast 3 mm thick sections acquired from the skull base to the T4 level. Sagittal and coronal reformats were then constructed. For radiation dose reduction, the following was used: automated exposure control, adjustment of mA and/or kV according to patient size. COMPARISON: None. FINDINGS: Image quality: Diagnostic Bones: No fractures or dislocations. Visualized superior ribs are intact. Soft tissues: Prevertebral soft tissues are normal in thickness. No paravertebral hematomas. No apical pneumothoraces. IMPRESSION: No displaced fracture or traumatic subluxation. Approved by: Sayra Torres M.D.,Ph.D. on 04/29/2025 at 16:35
--- NOTE | 2025-04-29 15:10 | DI.RAD.S_ITS ---
PROCEDURE: XR CHEST 1V INDICATIONS: trauma TECHNIQUE: One view of the chest was acquired. COMPARISON: [facility], CR, XR CHEST 1V, 10/19/2024, 10:29. FINDINGS: Surgical changes and devices: None. Lungs and pleura: Lungs are clear. No pleural effusions or pneumothorax. Mediastinum: Mediastinal contours appear normal. Heart size is normal. Bones and chest wall: No suspicious bony lesions. Overlying soft tissues appear unremarkable. IMPRESSION: No acute cardiopulmonary abnormality is seen. Approved by: Sayra Torres M.D.,Ph.D. on 04/29/2025 at 16:32
--- NOTE | 2025-04-29 15:10 | EKG_ITS ---
[address] [address] [place] [address] Test Date: 2025-04-29 Pat Name: Stacey Welsh Department: [facility] Room: Gender: Female Principal Engineer: ELMIRA : 1960 Requested By: Order Number: [id number] Reading MD: Quan Mckeon Measurements Intervals [place] Rate: 79 P: 78 SC: 146 QRS: 59 QRSD: 80 T: 94 QT: 372 QTc: 426 Interpretive Statements Normal sinus rhythm Nonspecific ST and T wave abnormality Electronically Signed On 04-29-2025 18:31:45 PST by Quan Mckeon
[2025-04-29 15:27] LABS: Appearance Urine UA CLEAR; Bilirubin Urine UA NEGATIVE (NEGATIVE); Color Urine UA YELLOW; Glucose Urine UA NEGATIVE (Negative); Ketones Urine UA NEGATIVE (NEGATIVE); Leukocyte Esterase Urine UA TRACE (NEGATIVE); Nitrite Urine UA NEGATIVE (Negative); Occult Blood Urine UA TRACE-INTACT (Negative); Protein Urine UA NEGATIVE (Negative); Specific Gravity Urine UA 1.015 (1.000-1.035); Urobilinogen Urine UA 0.2 E.U./dL (0.2); pH Urine UA 6.5 (4.5-8.0)
[2025-04-29 15:32] LABS: Culture Indicated Urine Cult Not Indicated
--- NOTE | 2025-04-29 15:58 | DI.RAD.S_ITS ---
PROCEDURE: XR KNEE LT 3V INDICATIONS: knee pain TECHNIQUE: 3 views of the knee were acquired. COMPARISON: None. FINDINGS: Bones: No fractures or dislocations. No suspicious bony lesions. Soft tissues: No joint effusion. No suspicious soft tissue calcifications. IMPRESSION: No acute osseous abnormality. If there is continued clinical concern or persistent symptoms, repeat radiographs or cross-sectional imaging (e.g. CT, MRI) may be helpful for further evaluation. Approved by: James Jose M.D. on 04/29/2025 at 16:38
[2025-04-29 16:06] LABS: Add Manual Diff / Slide Review NO; Hematocrit 35.2 % (36-46); Hemoglobin 11.7 g/dL (12.0-16.0); Lymphocytes Absolute Auto 1000 /uL (1100-4500); Mean Corpuscular HGB Conc 33.3 % (30-36); Mean Corpuscular Hemoglobin 30.3 PG (26-34); Mean Corpuscular Volume 91.0 fL (80-100); Platelet Count 359 X10^3/uL (150-400)
[2025-04-29 16:16] LABS: Alanine Aminotransferase 37 IU/L (<35); Albumin 4.1 g/dL (3.5-5.0); Albumin Globulin Ratio 1.5 (1.0-2.8); Alkaline Phosphatase 58 U/L (38-126); Blood Urea Nitrogen 18 mg/dL (7-17); Calcium 8.9 mg/dL (8.4-10.2); Carbon Dioxide 26 mmol/L (22-32); Chloride 104 mmol/L (98-107); Estimated Glomerular Filt Rate > 60 mL/min (>60); Globulin 2.8 g/dL (1.7-4.1); Glucose 100 mg/dL (70-99); HEMOLYSIS < 15 (0-50); Potassium 3.9 mmol/L (3.4-5.1); Sodium 136 mmol/L (137-145); Total Protein 6.9 g/dL (6.3-8.2)
[2025-04-29 16:28] LABS: Troponin I < 0.012 ng/mL (0.01-0.034)
[2025-04-29 16:47] LABS: Thyroid Stimulating Hormone 2.25 uIU/mL (0.47-4.68)
[2025-04-29 16:51] LABS: Influenza A - CEPHEID Flu A NEGATIVE (NEGATIVE); Influenza B - CEPHEID Flu B NEGATIVE (NEGATIVE)
[2025-04-29 16:55] LABS: COVID-19 CEPHEID 4-PLEX PCR Negative (Negative)
[2025-04-29] MEDS: droPERidol 2.5 MG/ML VIAL 0.625 MG IV (17:49)
--- NOTE | 2025-04-29 18:18 | CM.DANOTE ---
DCP Assessment Note: Pt is a 64yo female, resident of [place], is seen in the ED for confusion, fall. Pt lives in a house alone, her daughter has been her primary caregiver who lives in [place]. Pt's Primary Care Provider is Dr. Aleyda Ulloa and insurance is Medicare and [employer]. Reviewed chart and discussed with multidisciplinary team pt's medical status and initial discharge needs. REGISTERED HEALTH NURSE consulted because daughter/caregiver reports not being able to take care of pt in home, as her Lewy Body Dementia has advanced, she is deemed as Level VII. DCP met w/patient at bedside; introduced self and role. Present in the room is pt's daughter, Andreina. Patient was found in bed, not oriented to her daughter and experiencing uncontrollable shaking and pain. Pt daughter states she is POA and would like to discuss discharge plans. Pt daughter reports she has been coordinating moving pt to her home in [place] (updated in EMR) with Hospice but needs time to clear out that space. Pt daughter requests placement for about a week or less so she can make arrangements for patient at home. REGISTERED HEALTH NURSE reviewed Medicare Choice list with daughter, she states preference for [facility] for comfort/respite. Pt daughter states she is also open to Memory Care placement (respite) if pt not accepted at a SNF due to cognizance. REGISTERED HEALTH NURSE sent referral to [facility]missions via secure email. REGISTERED HEALTH NURSE reviews above with ED Provider, Dr. Meyer, who states pt does not have an admittable dx at this time and will have to await placement in ED until social admit policy can be activated. Plan: Anticipating SNF Rehab placement for comfort care vs. Hospice at daughter's home in [place]. ED Staff will follow closely for coordination of discharge plans. CARMITA Long Discharge Planning/Care Management CM Discharge Assessment Start: 04/29/25 18:14 Freq: Status: Active Protocol: Document 04/29/25 18:14 MW (Rec: 04/29/25 18:18 MW [id number]) Discharge Planning Assessment Assigned Discharge MINDA Turpin Medical Officer Psychiatry Provider Dr. Aleyda Ulloa Insurance Medicare DPOA/Assigned Rochelle Eason Designee Name Contact Information [phone] Advance Directives? No History Provided By Patient,Family Member,Medical Record Has Patient been No admitted in last 30 days? Prior Living House Arrangements Household Members none Comment Daughter has been primary caregiver Type of Relies on Others transporation used prior to admit Independent with ADL No 's Is patient alert and No oriented? Needs Assistance Bathing,Grooming,Meal Prep,Managing Medications,Home With Chores / Shopping Patient/Family Detention Facility Preference Discharge Plan Hospice Referrals Initiated Detention,Other Additional Comment With Hospice If patient plan is No home with home health: Has signed face to face form been completed? If patient plan is Yes SNF: Has PASSR been completed? Medicare Choice List Yes Provided SNF/HH Preference [facility] Mel[facility] Review Status In Process Please Provide Date 04/29/25 Initial DC Assessment Was Performed Next Review Type Continued Stay Review
--- NOTE | 2025-04-29 18:42 | PC.NURSE ---
pt requested to ambulate with personal FWW to/from bathroom-- this nurse plus charge nurse encouraged BSC and max assisted pt to/from BSC, performed darleen, and changed into gown. Pt declined brief and purewick placement at this time. pt in low/locked bed with call light in reach. Warm/new blankets placed
[2025-04-29] MEDS: MELATONIN 3 MG TABLET PO (20:11)
[2025-04-29] MEDS: ESCITALOPRAM 10 MG TABLET 5 MG PO (20:37)
[2025-04-30] VITALS (12 sets, daily range): BP systolic 129–176; BP diastolic 57–71; PULSE 61–78; RESP 16–17; TEMP 37.1–38; O2SAT 95–98
[2025-04-30] MEDS: ACETAMINOPHEN 325 MG TABLET 650 MG PO (03:25)
--- NOTE | 2025-04-30 07:51 | PC.NURSE ---
patient sister in law came into department to check on patient. Sister in law asked this tech how the patient did overnight. I informed family member that I was not patients nurse but in my report I was told patient was up a couple of times throughout the night but has been peacefully sleeping this morning since shift change. Patients family member agreed to not wake patient and to come back at a later time.
--- NOTE | 2025-04-30 17:18 | CM.SWNOTE ---
Addendum entered by Barbra Black 04/30/25 18:12: AUTOMOTIVE SALES SPECIALIST reviews patient with UR RN before she leaves for the day, it is identified that there is no admitting dx for patient. Barbra Black, [facility] Original Note: ED AUTOMOTIVE SALES SPECIALIST Note/DCP Continued AUTOMOTIVE SALES SPECIALIST reviews EMR and contacts Lilo at [facility]. It is reported that they might have a female bed tomorrow but it is a shared room. Lilo states that the private pay rate is $485/day, 30 day upfront cost of $51761. It is reported that comfort care is private pay and will require a hospice referral. AUTOMOTIVE SALES SPECIALIST calls patient's daughter Andreina regarding [facility], Andreina reports that she cannot afford [facility]'s rates and endorses her goal to get patient to a memory LTC facility in [place] next week. It is reported that patient has a Neurology appt next Tuesday at [facility], patient's daughter states that at the earliest she can take patient home on Tuesday. AUTOMOTIVE SALES SPECIALIST explains to daughter that she would be reimbursed what is not used for a month of coverage at [facility], patient's daughter declines. AUTOMOTIVE SALES SPECIALIST discusses that patient does not meet criteria for admission to the hospital and discusses respite Memory care facility options to bridge the gap in time while patient's daughter seeks LTC memory care facilities in [place]. AUTOMOTIVE SALES SPECIALIST states that AUTOMOTIVE SALES SPECIALIST can call local LTC facilities for respite while patient's daughter identifies facilities in [place]. AUTOMOTIVE SALES SPECIALIST informs Lilo at [facility] that daughter is no longer interested in placement there. LTC Memory Care Respite Search: AUTOMOTIVE SALES SPECIALIST calls [facility] (Lamar:sheela# [phone]/[email or web address]) it is reported that they require a 2 week respite minimum with as rate of $250/day. Patient's daughter states that [place] is not a convenient location. AUTOMOTIVE SALES SPECIALIST calls [facility] [place], it is reported that they cannot accommodate a respite stay. AUTOMOTIVE SALES SPECIALIST calls [facility] care, it is reported that they require a one month minimum with a daily rate of $300/day. AUTOMOTIVE SALES SPECIALIST calls [facility], it is reported that they do not provide respite care AUTOMOTIVE SALES SPECIALIST calls [facility], it is reported that they do not have respite beds currently. AUTOMOTIVE SALES SPECIALIST calls [facility] in [place], it is reported that there is a two week minimum and daily rate of about $294/day. AUTOMOTIVE SALES SPECIALIST calls [facility], it is reported that it is a two week respite minimum, Saurabh takes AUTOMOTIVE SALES SPECIALIST's email address to provide details after checking availability. AUTOMOTIVE SALES SPECIALIST calls [facility] care and leaves AUTOMOTIVE SALES SPECIALIST calls and speaks with [facility] representatives for [place], [facility] and several locations. It is reported that they have a shared room available in [facility] for $325-$400 a day, [place] does not have availability but they do have a [place] location if patient's daughter wants to pursue that for LTC placement (Joyce - . # [phone]). Patient's daughter presents with hesitation with making a decision and concern for the out of pocket costs. Patient's daughter believes that patient's Medicare Part G supplement with [employer] has senior living care insurance coverage. AUTOMOTIVE SALES SPECIALIST calls [employer] with attempt to confirm this information after speaking with several representatives they are unable to provide this information to AUTOMOTIVE SALES SPECIALIST. AUTOMOTIVE SALES SPECIALIST encourages daughter to call [employer]. AUTOMOTIVE SALES SPECIALIST provides patient's daughter with referral for [facility] to seek assistance identifying a LTC memory care facility near [place] and encourages patient to identify short term respite placement. AUTOMOTIVE SALES SPECIALIST provides daughter with several brochures for various local respite options as well as senior resource guide. Patient's daughter calls [facility] and a bedside assessment is scheduled for 9am tomorrow morning with MARLO Oliveira. AUTOMOTIVE SALES SPECIALIST calls [facility] and faxes clinicals for review (fax: [phone]) and confirms bedside assessment for tomorrow. Patient's daughter endorses plan to tour the facility tomorrow. AUTOMOTIVE SALES SPECIALIST discusses options of d/c to home with Hospice referral and plan to hire caregivers vs. respite stay at Memory care facility. Patient's daughter asks about admission to the hospital and AUTOMOTIVE SALES SPECIALIST explains that patient does not meet medical criteria for admission and it will not be covered by insurance. Daughter expresses concern that she is not able to care for patient as she cannot lift patient up when she falls. Patient denies any local supports to assist her and denies interest in getting a caregiver for patient. AUTOMOTIVE SALES SPECIALIST discusses the goal of seeking a safe plan of discharge for patient at the soonest convenience to avoid admission to the hospital that is not covered by insurance. Plan: Patient to board in ED awaiting Respite Memory care assessment with [facility] at 9am, daughter to tour the facility, hopeful for potential placement for respite. Daughter to identify LTC placement for memory care in [facility]. Barbra Black, COMPONENTS ENGINEER
[2025-04-30] MEDS: ESCITALOPRAM 10 MG TABLET 5 MG PO (22:22)
[2025-04-30] MEDS: MELATONIN 3 MG TABLET PO (22:22)
--- NOTE | 2025-04-30 22:40 | PC.NURSE ---
Provided darleen care and repositioned pt onto a hospital bed. Pt placed on left side. Pt resting comfortably, VSS. Call light in reach.
[2025-05-01] VITALS (24 sets, daily range): BP systolic 134–145; BP diastolic 67–76; PULSE 51–81; O2SAT 91–100
[2025-05-01] MEDS: ACETAMINOPHEN 325 MG TABLET 650 MG PO (03:02)
--- NOTE | 2025-05-01 10:36 | CM.SWNOTE ---
Addendum entered by MINDA Alvarenga 05/01/25 16:37: DCP Addendum: Pt has discharged with daughter. 1307: TIRE SERVICE TECHNICIAN recieved a return call from Transit Operator, Mya Palacios, that Physician orders for pt to move in are required. TIRE SERVICE TECHNICIAN provided fax number for forms to be sent (ED fax#). 1600: No order forms obtained in fax incoming box. TIRE SERVICE TECHNICIAN called [facility] and spoke with Selin who states she can re-forward the order forms. TIRE SERVICE TECHNICIAN provided email address to be sent personally. TIRE SERVICE TECHNICIAN obtained Physician Plan of Care forms from [facility], will have ED Provider sign and send back to facility. Dyana De León [facility] Original Note: ED TIRE SERVICE TECHNICIAN DCP Continued: Reviewed EMR and team rounds for pt?s medical status. Per EMR, pt has a bedside assessment scheduled on 05/01 at 9am with [facility]'s RN Roxanne. 0910: [facility] representatives are at bedside to complete assessment (RN, Transit Operator, and Hat Former). Following assessment, they notified RN that they will be in touch with SW, no MD orders or further clinicals requested. It is reported that pt is accepted at their facility and can move in as soon as tomorrow, 05/02/25. Per daughter and pt, the plan is coordinated that pt will return to her home this evening to spend one more New Year Holiday before moving into [facility] tomorrow. They are moving in for a minimum of 2 weeks vs. a month then will likely move to a sister facility in [place]. Pt daughter states her will be in the home tonight and can assist with transferring if needed. TIRE SERVICE TECHNICIAN called Mya at [facility], left a message inquiring if MD orders were necessary for move-in. Pt daughter requested assistance with getting pt dressed and into wheelchair, pt and daughter feel comfortable with transporting in pt's vehicle. Pt daughter also advocated for pt to have a bridge Rx of Olanzapine as it has helped pt sleep better overnight during her stay in ED. TIRE SERVICE TECHNICIAN relayed above to ED Provider, Dr. Meyer, who agreed with plan and will place Olanzapine Rx. TIRE SERVICE TECHNICIAN provided Lift Assist information to pt daughter in case extra assistance is needed to get pt in bed. TIRE SERVICE TECHNICIAN provided comfort quilt. Patient/DPOA reported no further questions or concerns at this time and understands they can request to speak with TIRE SERVICE TECHNICIAN again as needed. Plan: Discharge home with daughter to transport and family to support overnight, plans to move into [facility] tomorrow, 05/02/25. GILMA LongSW
--- NOTE | 2025-05-01 11:14 | PC.NURSE ---
Assumed care of pt att 11:00 AM. Naty, chief resource officer requests that this utilization review rn DC paperwork w/pt and discharge.
--- NOTE | 2025-05-02 12:04 | CM.SWNOTE ---
ED LITIGATION EXAMINER Follow up Note: LITIGATION EXAMINER obtained Physician/Healthcare Provider Plan of Care form signed by ED Provider, Dr. Meyer. Sent to [facility] . Plan: Pt to tour and move into [facility] on 05/02/25. CARMITA Long
== END 2025-05-01 11:22 | disposition home or self-care (01) ==
PROVIDERS: Emergency Provider Student in an Organized Health Care Education/Training Program; PCP Family Medicine
DX: R53.1 Weakness (principal); G31.83 Neurocognitive disorder with Lewy bodies; F02.80 Dementia in other diseases classified elsewhere, unspecified severity, without behavioral disturbance, psychotic disturbance, mood disturbance, and anxiety; I10 Essential (primary) hypertension
CPT/HCPCS: 70450; 71045; 72125; 73562; 80053; 81001; 84443; 84484; 85025; 87637; 93005; 96374; 99284; A9270; J1790